=== PATIENT | female | born 1945 | race Caucasian/White ===

== ENCOUNTER → 2023-01-25 | Outpatient (CLI) | payer MEDICARE, BC ==
--- NOTE | 2023-01-25 08:51 | US ---
EXAMINATION TYPE: US gallbladder DATE OF EXAM: 01/25/2023 COMPARISON: NONE CLINICAL INDICATION: Female, 77 years old with history of R10.11 RUQ PAIN; RUQ pain. TECHNIQUE: Multiple sonographic images of the right upper quadrant are obtained. FINDINGS: EXAM MEASUREMENTS: Liver Length: 14.9 cm Gallbladder Wall: 0.2 cm CBD: 0.3 cm Right Kidney: 10.1 x 4.2 x 3.7 cm Pancreas: Limited visualization of pancreatic head Liver: wnl Gallbladder: No wall thickening, stones or sludge visualized at time of scan Evidence for sonographic Colindres's sign: neg CBD: wnl Right Kidney: Medial anechoic lesion at hilum = 1.2 x 0.7 cm. Lower pole echogenic focus with twink ling artifact = 0.4 cm. Visualized portions of the pancreas unremarkable. Liver is unremarkable without evidence of focal les ion. Gallbladder is unremarkable without evidence of cholelithiasis, wall thickening, or pericholecys tic fluid. Per metal mold dresser, negative sonographic Colindres sign. Common bile duct is within normal limit s. Nonobstructive right renal lower pole 0.4 cm calculus. No right renal solid mass identified. Renal sinus cyst measuring up to 1.2 cm. IMPRESSION: 1. No acute process. 2. No cholelithiasis or evidence for acute cholecystitis. 3. Nonobstructive right renal calculus.
== END | disposition home or self-care (01) ==
LOC: RADUSWWP 07:17
PROVIDERS: ATTEND Family Medicine
DX: N20.0 Calculus of kidney (principal); R10.11 Right upper quadrant pain
CPT/HCPCS: 76705

== ENCOUNTER 2024-04-04 13:49 | Inpatient (IN) | payer MEDICARE, BC ==
--- NOTE | 2024-04-04 14:32 | ED ---
General Adult HPI - General Chief complaint: Upper Respiratory Infection Stated complaint: Weakness Time Seen by Provider: 04/04/24 14:00 Source: patient, EMS, RN notes reviewed, old records reviewed Mode of arrival: EMS Limitations: no limitations - History of Present Illness Initial comments: This is a 78-year-old female who presents to the emergency department with a past medical history significant for COPD and smoking. Patient states she does continue to smoke. Patient states of the last couple of days her breathing is gotten considerably worse and today it was much worse than its baseline and so she came to the emergency department. Patient also complains of generalized weakness. Patient denies any chest pain or palpitation. Patient denies any abdominal pain patient Nuys nausea vomiting or diarrhea. Patient denies any swelling to the legs or calf tenderness. Patient [place] any headache patient denies numbness or weakness - Related Data Home Medications Medication Instructions Recorded Confirmed ALPRAZolam [Xanax] 0.25 mg PO HS PRN 04/04/24 04/04/24 Albuterol Inhaler [Ventolin Hfa 2 puff INHALATION RT-Q6H PRN 04/04/24 04/04/24 Inhaler] Albuterol Nebulized [Ventolin 2.5 mg INHALATION RT-QID PRN 04/04/24 04/04/24 Nebulized] Fluticasone/Umeclidin/Vilanter 1 puff INHALATION RT-DAILY 04/04/24 04/04/24 [Trelegy Ellipta 100-62.5-25] Allergies Allergy/AdvReac Type Severity Reaction Status Date / Time No Known Allergies Allergy Unverified 04/04/24 15:48 Review of Systems ROS Statement: Those systems with pertinent positive or pertinent negative responses have been documented in the HPI. ROS Other: All systems not noted in ROS Statement are negative. Past Medical History Past Medical History: Cancer, COPD History of Any Multi-Drug Resistant Organisms: None Reported Past Surgical History: No Surgical Hx Reported Past Psychological History: Panic Disorder Smoking Status: Current every day smoker Past Alcohol Use History: None Reported Past Drug Use History: None Reported General Exam - General Exam Comments Initial Comments: GENERAL: Patient is well-developed and well-nourished. Patient is nontoxic and well- hydrated and is in mild distress. ENT: Neck is soft and supple. No significant lymphadenopathy is noted. Oropharynx is clear. Moist mucous membranes. Neck has full range of motion without eliciting any pain. EYES: The sclera were anicteric and conjunctiva were pink and moist. Extraocular movements were intact and pupils were equal round and reactive to light. Eyelids were unremarkable. PULMONARY: Patient has diminished breath sounds throughout CARDIOVASCULAR: There is a regular rate and rhythm without any murmurs gallops or rubs. ABDOMEN: Soft and nontender with normal bowel sounds. No palpable organomegaly was noted. There is no palpable pulsatile mass. SKIN: Skin is clear with no lesions or rashes and otherwise unremarkable. NEUROLOGIC: Patient is alert and oriented x3. Cranial nerves II through XII are grossly intact. Motor and sensory are also intact. Normal speech, volume and content. Symmetrical smile. MUSCULOSKELETAL: Normal extremities with adequate strength and full range of motion. No lower extremity swelling or edema. No calf tenderness. LYMPHATICS: No significant lymphadenopathy is noted PSYCHIATRIC: Normal psychiatric evaluation. Limitations: no limitations Course Vital Signs 04/04/24 04/04/24 04/04/24 13:52 15:07 15:33 Temperature 98.6 F Pulse Rate 104 H 103 H 117 H Respiratory 24 Rate Blood Pressure 135/96 O2 Sat by Pulse 95 Oximetry 04/04/24 17:50 Temperature Pulse Rate 100 Respiratory 20 Rate Blood Pressure 135/96 O2 Sat by Pulse 93 L Oximetry Medical Decision Making - Medical Decision Making EKG is interpreted by myself. EKG shows a sinus rhythm at 97 bpm [place] 140 QRS is 85 QT interval 323 QTc is 377. Patient EKG shows no ST segment elevation or depression Was pt. sent in by a medical professional or institution (, PA, SYSTEMS CHECKOUT MECHANIC, urgent c are, hospital, or correction...) When possible be specific @ -No Did you speak to anyone other than the patient for history (EMS, parent, family, police, friend...)? What history was obtained from this source @ -No Did you review nursing and triage notes (agree or disagree)? Why? @ -I reviewed and agree with nursing and triage notes Were old charts reviewed (outside hosp., previous admission, EMS record, old EKG, old radiological studies, urgent care reports/EKG's, correction records)? Report findings @ -No old charts were reviewed Differential Diagnosis? @ -Differential Dyspnea: Coronary syndrome, arrhythmia, tamponade, asthma, COPD, pulmonary embolism, pneumonia, pneumothorax, pulmonary effusion, anaphylaxis, diabetic ketoacidosis, flailed chest, pulmonary contusion, diaphragmatic rupture, anemia, neuromuscular, this is not meant to be an all-inclusive list. EKG interpreted by me (3pts min.). @ -As above X-rays interpreted by me (1pt min.). @ -Chest x-ray shows COPD CT interpreted by me (1pt min.). @ -None done U/S interpreted by me (1pt. min.). @ -None done What testing was considered but not performed or refused? (CT, X-rays, U/S, labs)? Why? @ -None What meds were considered but not given or refused? Why? @ -None Did you discuss the management of the patient with other professionals (professionals i.e. , PA, SYSTEMS CHECKOUT MECHANIC, lab, RT, psych nurse, social service assistant, sliver lap tender, teacher, classifications officer cc/cm, disease case manager rn)? Give summary @ -Spoke with [facility] hospitalist and they agreed to admit the patient Was smoking cessation discussed for >3mins.? @ -No Was critical care preformed (if so, how long)? @ -No Were there social determinants of health that impacted care today? How? (Homelessness, low income, unemployed, alcoholism, drug addiction, transportation, low edu. Level, literacy, decrease access to med. care, detention, rehab)? @ -No Was there de-escalation of care discussed even if they declined (Discuss DNR or withdrawal of care, Hospice)? DNR status @ -No What co-morbidities impacted this encounter? (DM, HTN, Smoking, COPD, CAD, Cancer, CVA, ARF, Chemo, Hep., AIDS, mental health diagnosis, sleep apnea, morbid obesity)? @ -None Was patient admitted / discharged? Hospital course, mention meds given and route, prescriptions, significant lab abnormalities, going to OR and other pertinent info. @ -Patient was given albuterol treatments steroids and antibiotics. Patient will be admitted to the hospital for COPD exacerbation Undiagnosed new problem with uncertain prognosis? @ -No Drug Therapy requiring intensive monitoring for toxicity (Heparin, Nitro, Insul in, Cardizem)? @ -No Were any procedures done? @ -No Diagnosis/symptom? @ -COPD exacerbation Acute, or Chronic, or Acute on Chronic? @ -Acute Uncomplicated (without systemic symptoms) or Complicated (systemic symptoms)? @ -Complicated Side effects of treatment? @ -No Exacerbation, Progression, or Severe Exacerbation? @ -No Poses a threat to life or bodily function? How? (Chest pain, USA, IA, pneumonia, PE, COPD, DKA, ARF, appy, cholecystitis, CVA, Diverticulitis, Homicidal, Suicidal, threat to staff... and all critical care pts) @ -Yes this can lead to hypoxia and end organ dysfunction - Lab Data Result diagrams: 04/04/24 14:45 04/04/24 14:45 Lab Results 04/04/24 04/04/24 04/04/24 Range/Units 14:45 14:45 14:45 WBC 8.6 (3.8-10.6) k/uL RBC 2.97 L (3.80-5.40) m/uL Hgb 8.9 L (11.4-16.0) gm/dL Hct 29.0 L (34.0-46.0) % MCV 97.8 (80.0-100.0) fL MCH 30.1 (25.0-35.0) pg MCHC 30.8 L (31.0-37.0) g/dL RDW 13.7 (11.5-15.5) % Plt Count 431 (150-450) k/uL MPV 7.9 Neutrophils % 86 % Lymphocytes % 7 % Monocytes % 6 % Eosinophils % 1 % Basophils % 0 % Neutrophils # 7.4 (1.3-7.7) k/uL Lymphocytes # 0.6 L (1.0-4.8) k/uL Monocytes # 0.5 (0-1.0) k/uL Eosinophils # 0.1 (0-0.7) k/uL Basophils # 0.0 (0-0.2) k/uL Hypochromasia Moderate PT 10.1 (10.0-12.5) sec INR 0.9 (<1.2) APTT 25.1 (22.0-30.0) sec Sodium 135 L (137-145) mmol/L Potassium 5.1 (3.5-5.1) mmol/L Chloride 88 L (98-107) mmol/L Carbon Dioxide 46 H* (22-30) mmol/L Anion Gap 1 mmol/L BUN 16 (7-17) mg/dL Creatinine 0.50 L (0.52-1.04) mg/dL Est GFR (CKD-EPI)AfAm >90 (>60 ml/min/1.73 sqM) Est GFR (CKD-EPI)NonAf >90 (>60 ml/min/1.73 sqM) Glucose 112 H (74-99) mg/dL Plasma Lactic Acid Jeff (0.7-2.0) mmol/L Calcium 8.8 (8.4-10.2) mg/dL Magnesium 2.1 (1.6-2.3) mg/dL Total Bilirubin 0.4 (0.2-1.3) mg/dL AST 54 H (14-36) U/L ALT 17 (4-34) U/L Alkaline Phosphatase 64 (38-126) U/L Troponin I (0.000-0.034) ng/mL Total Protein 6.5 (6.3-8.2) g/dL Albumin 3.7 (3.5-5.0) g/dL Urine Color Urine Appearance (Clear) Urine pH (5.0-8.0) Ur Specific [place] (1.001-1.035) Urine Protein (Negative) Urine Glucose (UA) (Negative) Urine Ketones (Negative) Urine Blood (Negative) Urine Nitrite (Negative) Urine Bilirubin (Negative) Urine Urobilinogen (<2.0) mg/dL Ur Leukocyte Esterase (Negative) Urine RBC (0-5) /hpf Urine WBC (0-5) /hpf Ur Squamous Epith Cells (0-4) /hpf Urine Mucus (None) /hpf 04/04/24 04/04/24 04/04/24 Range/Units 14:45 14:45 15:50 WBC (3.8-10.6) k/uL RBC (3.80-5.40) m/uL Hgb (11.4-16.0) gm/dL Hct (34.0-46.0) % MCV (80.0-100.0) fL MCH (25.0-35.0) pg MCHC (31.0-37.0) g/dL RDW (11.5-15.5) % Plt Count (150-450) k/uL MPV Neutrophils % % Lymphocytes % % Monocytes % % Eosinophils % % Basophils % % Neutrophils # (1.3-7.7) k/uL Lymphocytes # (1.0-4.8) k/uL Monocytes # (0-1.0) k/uL Eosinophils # (0-0.7) k/uL Basophils # (0-0.2) k/uL Hypochromasia PT (10.0-12.5) sec INR (<1.2) APTT (22.0-30.0) sec Sodium (137-145) mmol/L Potassium (3.5-5.1) mmol/L Chloride (98-107) mmol/L Carbon Dioxide (22-30) mmol/L Anion Gap mmol/L BUN (7-17) mg/dL Creatinine (0.52-1.04) mg/dL Est GFR (CKD-EPI)AfAm (>60 ml/min/1.73 sqM) Est GFR (CKD-EPI)NonAf (>60 ml/min/1.73 sqM) Glucose (74-99) mg/dL Plasma Lactic Acid Jeff 0.9 (0.7-2.0) mmol/L Calcium (8.4-10.2) mg/dL Magnesium (1.6-2.3) mg/dL Total Bilirubin (0.2-1.3) mg/dL AST (14-36) U/L ALT (4-34) U/L Alkaline Phosphatase (38-126) U/L Troponin I 0.052 H* (0.000-0.034) ng/mL Total Protein (6.3-8.2) g/dL Albumin (3.5-5.0) g/dL Urine Color Yellow Urine Appearance Cloudy H (Clear) Urine pH 6.5 (5.0-8.0) Ur Specific [place] 1.019 (1.001-1.035) Urine Protein 1+ H (Negative) Urine Glucose (UA) Negative (Negative) Urine Ketones Negative (Negative) Urine Blood Small H (Negative) Urine Nitrite Negative (Negative) Urine Bilirubin Negative (Negative) Urine Urobilinogen <2.0 (<2.0) mg/dL Ur Leukocyte Esterase Trace H (Negative) Urine RBC 46 H (0-5) /hpf Urine WBC 5 (0-5) /hpf Ur Squamous Epith Cells 9 H (0-4) /hpf Urine Mucus Rare H (None) /hpf Disposition Clinical Impression: COPD with acute exacerbation Disposition: ADMITTED IP TO THIS HOSP Referrals: Cody Johnson MD [Primary Care Provider] - 1-2 days Time of Disposition: 17:55
[2024-04-04 15:02] LABS: Basophils % (A) 0 %; Eosinophils # (A) 0.1 k/uL (0-0.7); Eosinophils % (A) 1 %; HGB 8.9 gm/dL (11.4-16.0); Hypochromasia Moderate; Lymphocytes # (A) 0.6 k/uL (1.0-4.8); Lymphocytes % (A) 7 %; MCH 30.1 pg (25.0-35.0); MCHC 30.8 g/dL (31.0-37.0); MCV 97.8 fL (80.0-100.0); Mean Platelet Volume 7.9; Monocytes # (A) 0.5 k/uL (0-1.0); Monocytes % (A) 6 %; Neutrophils # (A) 7.4 k/uL (1.3-7.7); Neutrophils % (A) 86 %; Platelet Count 431 k/uL (150-450); RBC 2.97 m/uL (3.80-5.40); RDW 13.7 % (11.5-15.5); WBC 8.6 k/uL (3.8-10.6)
[2024-04-04] MEDS: ALBUTEROL NEBULIZED 2.5 MG/3 ML INHALATION STA (15:03)
[2024-04-04] MEDS: IPRATROPIUM 0.5 MG/2.5 ML NEBU INHALATION STA (15:04)
[2024-04-04 15:11] LABS: INR 0.9 (<1.2); Partial Thromboplastin Time 25.1 sec (22.0-30.0); Prothrombin Time 10.1 sec (10.0-12.5)
[2024-04-04 15:27] LABS: ALT 17 U/L (4-34); AST 54 U/L (14-36); African American GFR (CKD) >90 (>60 ml/min/1.73 sqM); Albumin 3.7 g/dL (3.5-5.0); Alkaline Phosphatase 64 U/L (38-126); Blood Urea Nitrogen 16 mg/dL (7-17); Calcium 8.8 mg/dL (8.4-10.2); Chloride 88 mmol/L (98-107); Glucose 112 mg/dL (74-99); Magnesium 2.1 mg/dL (1.6-2.3); Non-African American GFR(CKD) >90 (>60 ml/min/1.73 sqM); Potassium 5.1 mmol/L (3.5-5.1); Sodium 135 mmol/L (137-145); Total Bilirubin 0.4 mg/dL (0.2-1.3); Total Protein 6.5 g/dL (6.3-8.2)
[2024-04-04 15:33] LABS: Anion Gap 1 mmol/L
[2024-04-04 15:35] LABS: Carbon Dioxide 46 mmol/L (22-30)
[2024-04-04 16:23] LABS: Appearance,Urine Cloudy (Clear); Bilirubin,Urine Negative (Negative); Blood,Urine Small (Negative); Color,Urine Yellow; Glucose,Urine (UA) Negative (Negative); Ketones,Urine Negative (Negative); Leukocyte Esterase,Urine Trace (Negative); Mucus,Urine Rare /hpf; Nitrite,Urine Negative (Negative); PH, Urine 6.5 (5.0-8.0); Protein,Urine 1+ (Negative); RBC,Urine 46 /hpf (0-5); Specific Gravity,Urine 1.019 (1.001-1.035); Squamous Epithelial Cell,Urine 9 /hpf (0-4); Urobilinogen,Urine <2.0 mg/dL (<2.0); WBC,Urine 5 /hpf (0-5)
--- NOTE | 2024-04-04 17:34 | XR ---
EXAMINATION TYPE: XR chest 2V DATE OF EXAM: 04/04/2024 5:28 PM CLINICAL INDICATION: Female, 78 years old with history of difficulty breathing; [facility] COMPARISON: None TECHNIQUE: XR chest 2V Frontal view of the chest. FINDINGS: Lungs/Pleura: There is flattening of the diaphragm with increased lucency of the lungs. No evidence o f pneumothorax, pleural effusion or focal consolidation. Pulmonary vascularity: Unremarkable. Heart/mediastinum: Cardiomediastinal silhouette is unremarkable. Musculoskeletal: No acute osseous pathology. IMPRESSION: 1. No acute cardiopulmonary disease process. 2. COPD changes.
[2024-04-04] MEDS: cefTRIAXone IN SWFI 1,000 MG/10 ML SYRINGE IVP STA ×2 (17:43→17:44)
[2024-04-04] MEDS: methylPREDNISolone SOD SUCCI 125 MG/2 ML VIAL IV STA (17:43)
[2024-04-04] MEDS ORDERED: IPRATROPIUM-ALBUTEROL 3 ML NEB INHALATION PRN (17:56)
[2024-04-04] MEDS ORDERED: NALOXONE 0.4 MG/ML 1 ML VIAL IVP PRN (17:56)
[2024-04-04] MEDS: IPRATROPIUM-ALBUTEROL 3 ML NEB INHALATION SCH (20:35)
[2024-04-04] MEDS: AMOXIC-POT CLAV 875-125MG 1 EACH TAB PO SCH (21:26)
[2024-04-04] MEDS: methylPREDNISolone SOD SUCCI 125 MG/2 ML VIAL IV SCH (23:43)
[2024-04-05] MEDS: ASPIRIN 81 MG PO STA (12:25)
[2024-04-05] MEDS: ALPRAZolam 0.25 MG TAB PO PRN (12:26)
--- NOTE | 2024-04-05 13:17 | P.CNPUL ---
History of Present Illness Consult date: 04/05/24 Requesting physician: Yue Wiseman Reason for consult: dyspnea, COPD Chief complaint: Shortness of breath, cough, congestion History of present illness: This is a 78-year-old female patient with a known history of chronic and ongoing tobacco dependence of greater than 50 years, chronic obstructive pulmonary disease, chronic hypoxemic respiratory failure on home oxygen at 3 L/min. She is maintained on Trelegy and albuterol. She had recently been diagnosed with malignant thymoma in February 2024. She is following with a oncologist out of [place] and has an appointment there on April 08, 2024. She is from [place] but is here visiting and was having a 2 to 3-day history of increasing shortness of breath cough and congestion. Also has complaints of generalized weakness and fatigue. Chest x-ray reveals no acute pulmonary process. There is evidence of COPD. White count 8.6. Hemoglobin 8.9. Platelets 431. Sodium 135. Potassium 5.1. Bicarb 46. BUN 16. Creatinine 0.50. Glucose 112. She has been initiated on DuoNeb inhalations, Solu-Medrol, Symbicort and empiric antibiotics in the form of Augmentin. Review of Systems REVIEW OF SYSTEMS: CONSTITUTIONAL: Positive for generalized weakness and fatigue. EYES: Denies change in vision. EARS, NOSE, MOUTH, THROAT: Denies headaches, denies sore throat. CARDIOVASCULAR: Denies chest pain, palpitations or syncopal episodes. RESPIRATORY: Positive for shortness of breath, cough, congestion no hemoptysis. GASTROINTESTINAL: Denies change in appetite, denies abdominal pain GENITOURINARY: Denies hematuria, denies infections. MUSKULOSKELETAL: Denies pain, denies swelling. INTEGUMENTARY: Denies rash, denies eczema. NEUROLOGICAL: Denies recent memory loss, no recent seizure activity. PSYCHIATRIC: Denies anxiety, denies depression. HEMATOLOGIC/LYMPHATIC: Denies anemia, denies enlarged lymph nodes. Past Medical History Past Medical History: Cancer, COPD History of Any Multi-Drug Resistant Organisms: None Reported Past Surgical History: No Surgical Hx Reported Past Psychological History: Panic Disorder Smoking Status: Current every day smoker Past Alcohol Use History: None Reported Past Drug Use History: None Reported Medications and Allergies Home Medications Medication Instructions Recorded Confirmed Type ALPRAZolam [Xanax] 0.25 mg PO HS PRN 04/04/24 04/04/24 History Albuterol Inhaler [Ventolin Hfa 2 puff INHALATION RT-Q6H PRN 04/04/24 04/04/24 History Inhaler] Albuterol Nebulized [Ventolin 2.5 mg INHALATION RT-QID PRN 04/04/24 04/04/24 History Nebulized] Fluticasone/Umeclidin/Vilanter 1 puff INHALATION RT-DAILY 04/04/24 04/04/24 History [Treiglesia Ellipta 100-62.5-25] Allergies Allergy/AdvReac Type Severity Reaction Status Date / Time No Known Allergies Allergy Unverified 04/04/24 15:48 Physical Exam Vitals: Vital Signs Temp Pulse Resp BP Pulse Ox 04/05/24 12:30 112 H 20 5 L 04/05/24 11:30 118 H 04/05/24 11:20 107 H 04/05/24 09:00 94 20 140/88 97 04/05/24 08:41 24 04/05/24 08:03 115 H 04/05/24 07:57 92 L 04/05/24 07:53 124 H 04/05/24 07:48 86 18 129/70 94 L 04/05/24 05:30 99 18 129/70 97 04/05/24 03:30 111 H 20 115/87 94 L 04/05/24 01:00 94 16 115/50 93 L 04/04/24 23:50 102 H 20 124/67 04/04/24 21:27 104 H 20 135/96 95 04/04/24 20:45 115 H 04/04/24 20:35 114 H 04/04/24 17:50 100 20 135/96 93 L 04/04/24 15:33 117 H 04/04/24 15:07 103 H 04/04/24 13:52 98.6 F 104 H 24 135/96 95 GENERAL EXAM: Alert,, very thin 78-year-old female, on 2 L/min per nasal cannula, comfortable in no apparent distress. HEAD: Normocephalic. EYES: Normal reaction of pupils, equal size. NOSE: Clear with pink turbinates. THROAT: No erythema or exudates. NECK: No masses, no JVD. CHEST: No chest wall deformity. LUNGS: Equal air entry with end expiratory wheeze, diminished. CVS: S1 and S2 normal with no audible murmur, regular rhythm. ABDOMEN: No hepatosplenomegaly, normal bowel sounds, no guarding or rigidity. SPINE: No scoliosis or deformity SKIN: No rashes CENTRAL NERVOUS SYSTEM: No focal deficits, tone is normal in all 4 extremities. EXTREMITIES: There is no peripheral edema. No clubbing, no cyanosis. Peripheral pulses are intact. Results - Laboratory Findings CBC and BMP: 04/04/24 14:45 04/04/24 14:45 PT/INR, D-dimer PT 10.1 sec (10.0-12.5) 04/04/24 14:45 INR 0.9 (<1.2) 04/04/24 14:45 Abnormal lab findings: Abnormal Labs 04/04/24 04/04/24 04/04/24 14:45 14:45 14:45 RBC 2.97 L Hgb 8.9 L Hct 29.0 L MCHC 30.8 L Lymphocytes # 0.6 L Sodium 135 L Chloride 88 L Carbon Dioxide 46 H* Creatinine 0.50 L Glucose 112 H AST 54 H Troponin I 0.052 H* Urine Appearance Urine Protein Urine Blood Ur Leukocyte Esterase Urine RBC Ur Squamous Epith Cells Urine Mucus 04/04/24 15:50 RBC Hgb Hct MCHC Lymphocytes # Sodium Chloride Carbon Dioxide Creatinine Glucose AST Troponin I Urine Appearance Cloudy H Urine Protein 1+ H Urine Blood Small H Ur Leukocyte Esterase Trace H Urine RBC 46 H Ur Squamous Epith Cells 9 H Urine Mucus Rare H - Diagnostic Findings Chest x-ray: image reviewed Assessment and Plan Assessment: Acute on chronic hypoxemic respiratory failure secondary to an acute exacerbation of chronic obstructive pulmonary disease. Chest x-ray reveals no acute process. Procalcitonin pending Chronic and ongoing tobacco dependence of greater than 50 years Anorexia/cachexia syndrome Recent diagnosis of malignant thymoma. Has an appointment April 08, 2024 with oncology of [place] Generalized weakness and fatigue, consider myasthenia gravis secondary to above Plan: The patient was seen and evaluated Chest x-ray, labs and medications reviewed Continue the bronchodilators, steroids Continue antibiotics for now Check a procalcitonin Check anti MUSK antibodies for myasthenia gravis We will continue to follow and make further recommendations based on her clinica l status I have personally seen and examined the patient, performed the documentation and the assessment and plan as written. Number of minutes spent on the visit: 20.
--- NOTE | 2024-04-05 14:54 | P.HPIM ---
History of Present Illness H&P Date: 04/05/24 History of present illness: 78-year-old female with past medical history significant for COPD on 3 L oxygen, uses albuterol and trilogy at home, chronic current smoker for more than 50 years, history of thymoma diagnosed in February 2024 who presented to hospital with a complaint of shortness of breath. Patient's daughter at bedside who reported that patient is going to follow-up with an oncologist on Sunday at [place] for her thymoma. Patient presented here for 2 to 3 days history of increased shortness of breath, cough and congestion, generalized weakness and fatigue. Chest x-ray negative for acute process. Chest x-ray still showed changes suggestive of COPD. Normal white count, hemoglobin low 8.9 platelet 431. BMP showed sodium 135 potassium 5.1 bicarb 46, creatinine 0.50 BUN 16, bl ood glucose 112. Patient received DuoNeb inhalers, Solu-Medrol Symbicort and empiric antibiotics in the form of Augmentin in the ED. REVIEW OF SYSTEMS: CONSTITUTIONAL: Complains of generalized weakness, fatigue. HEENT: No recent visual problems or hearing problems. Denied any sore throat. CARDIOVASCULAR: No chest pain, orthopnea, PND, no palpitations, no syncope. PULMONARY: Complains of shortness breath, cough, congestion. GASTROINTESTINAL: No diarrhea, no nausea, no vomiting, no abdominal pain. NEUROLOGICAL: No headaches, no weakness, no numbness. HEMATOLOGICAL: Denies any bleeding or petechiae. GENITOURINARY: Denies any burning micturition, frequency, or urgency. MUSCULOSKELETAL/RHEUMATOLOGICAL: Denies any joint pain, swelling, or any muscle pain. ENDOCRINE: Denies any polyuria or polydipsia. The rest of the 14-point review of systems is negative. PHYSICAL EXAMINATION: GENERAL: The patient is A&O x3, NAD HEENT: EOMI, Sclerae anicteric, Moist Mucous membranes Neck: Supple, Non tender, No JVD PULMONARY: Decreased breath sound bilaterally, bilateral expiratory wheezes. CARDIOVASCULAR: S1, S2 present. No murmurs, rubs, or gallops. ABDOMEN: Soft, nontender, nondistended, normoactive bowel sounds. No guarding or rebound tenderness. MUSCULOSKELETAL: No edema, No cyanosis. No clubbing. Normal ROM. Intact peripheral pulses. EXTREMITIES: No cyanosis, clubbing, or pedal edema. NEUROLOGICAL: CN 2-12 grossly intact. No FND Assessment and plan: Acute on chronic hypoxic respiratory failure: Acute COPD exacerbation: Chronic ongoing tobacco use more than 50 years: Anorexia: Cachexia Recent diagnosis of malignant thymomaappointment on Sunday with [facility]line oncology Generalized weakness and fatigue: Presented with worsening shortness of breath for 2 to 3 days, productive cough, congestion, generalized fatigue On 3 L oxygen at baseline Continue bronchodilators, steroids On Augmentin empirically, procalcitonin pending Chest x-ray negative for pneumonia Pulmonary consultedappreciate recs Will consult neurology to evaluate for generalized weakness in the setting of thymoma. DVT prophylaxis Subcutaneous Lovenox Monitor vital signs and labs Continue telemetry monitoring Labs and medication were reviewed. Continue same treatment. Resume home medication. Further recommendations as per clinical course of the patient Dictation was produced using [employer] dictation software. please excuse any grammatical, word or spelling errors. Past Medical History Past Medical History: Cancer, COPD History of Any Multi-Drug Resistant Organisms: None Reported Past Surgical History: No Surgical Hx Reported Past Psychological History: Panic Disorder Smoking Status: Current every day smoker Past Alcohol Use History: None Reported Past Drug Use History: None Reported Medications and Allergies Home Medications Medication Instructions Recorded Confirmed Type ALPRAZolam [Xanax] 0.25 mg PO HS PRN 04/04/24 04/04/24 History Albuterol Inhaler [Ventolin Hfa 2 puff INHALATION RT-Q6H PRN 04/04/24 04/04/24 History Inhaler] Albuterol Nebulized [Ventolin 2.5 mg INHALATION RT-QID PRN 04/04/24 04/04/24 History Nebulized] Fluticasone/Umeclidin/Vilanter 1 puff INHALATION RT-DAILY 04/04/24 04/04/24 History [Trelegy Ellipta 100-62.5-25] Allergies Allergy/AdvReac Type Severity Reaction Status Date / Time No Known Allergies Allergy Unverified 04/04/24 15:48 Physical Exam Vitals: Vital Signs Pulse Resp BP Pulse Ox 04/05/24 12:30 112 H 20 5 L 04/05/24 11:30 118 H 04/05/24 11:20 107 H 04/05/24 09:00 94 20 140/88 97 04/05/24 08:41 24 04/05/24 08:03 115 H 04/05/24 07:57 92 L 04/05/24 07:53 124 H 04/05/24 07:48 86 18 129/70 94 L 04/05/24 05:30 99 18 129/70 97 04/05/24 03:30 111 H 20 115/87 94 L 04/05/24 01:00 94 16 115/50 93 L 04/04/24 23:50 102 H 20 124/67 04/04/24 21:27 104 H 20 135/96 95 04/04/24 20:45 115 H 04/04/24 20:35 114 H 04/04/24 17:50 100 20 135/96 93 L 04/04/24 15:33 117 H 04/04/24 15:07 103 H Results CBC & Chem 7: 04/04/24 14:45 04/04/24 14:45 Labs: Abnormal Lab Results - Last 24 Hours (Table) 04/04/24 04/04/24 04/04/24 Range/Units 14:45 14:45 14:45 RBC 2.97 L (3.80-5.40) m/uL Hgb 8.9 L (11.4-16.0) gm/dL Hct 29.0 L (34.0-46.0) % MCHC 30.8 L (31.0-37.0) g/dL Lymphocytes # 0.6 L (1.0-4.8) k/uL Sodium 135 L (137-145) mmol/L Chloride 88 L (98-107) mmol/L Carbon Dioxide 46 H* (22-30) mmol/L Creatinine 0.50 L (0.52-1.04) mg/dL Glucose 112 H (74-99) mg/dL AST 54 H (14-36) U/L Troponin I 0.052 H* (0.000-0.034) ng/mL Urine Appearance (Clear) Urine Protein (Negative) Urine Blood (Negative) Ur Leukocyte Esterase (Negative) Urine RBC (0-5) /hpf Ur Squamous Epith Cells (0-4) /hpf Urine Mucus (None) /hpf 04/04/24 04/05/24 Range/Units 15:50 11:52 RBC (3.80-5.40) m/uL Hgb (11.4-16.0) gm/dL Hct (34.0-46.0) % MCHC (31.0-37.0) g/dL Lymphocytes # (1.0-4.8) k/uL Sodium (137-145) mmol/L Chloride (98-107) mmol/L Carbon Dioxide (22-30) mmol/L Creatinine (0.52-1.04) mg/dL Glucose (74-99) mg/dL AST (14-36) U/L Troponin I 0.042 H* (0.000-0.034) ng/mL Urine Appearance Cloudy H (Clear) Urine Protein 1+ H (Negative) Urine Blood Small H (Negative) Ur Leukocyte Esterase Trace H (Negative) Urine RBC 46 H (0-5) /hpf Ur Squamous Epith Cells 9 H (0-4) /hpf Urine Mucus Rare H (None) /hpf
[2024-04-05] MEDS: ENOXAPARIN 40 MG/0.4 ML SYRINGE SQ SCH (15:40)
[2024-04-05] MEDS: SYMBICORT 160-4.5 MCG INHALER INHALATION SCH (20:46)
[2024-04-06] MEDS ORDERED: SYMBICORT 80-4.5 MCG INHALER INHALATION SCH (08:00)
--- NOTE | 2024-04-06 11:13 | P.CNNES ---
History of Present Illness Consult date: 04/05/24 Requesting physician: Spenser Holden Reason for Consult: Generalized weakness, history of thymoma History of Present Illness: Patient is a 78-year-old female with history of COPD, recently diagnosed thymoma, came to the hospital by ambulance yesterday at 1:49 PM for difficulty breathing. EMS flowsheet not available in the chart. Patient's family members were also present. Patient has history of COPD. She has developed difficulty breathing, progressively getting worse since July 2023. Initially oxygen was started, which helped. In February [address] scan of the chest, which revealed thymic mass. She underwent biopsy of this mass, which revealed thymoma with some malignant cells were also present, as per patient's report. Prior to arrival, her symptoms got worse. Her mouth was hurting for last few months. Patient breathing difficulty got worse. Airvo was tried but it prod uced dry mouth. Yesterday she could not breathe, could not talk therefore she came to the hospital. Patient states that she cannot undergo sternotomy for thymectomy because of her overall health condition. And they cannot perform robotic assisted surgery because of the location of this thymic mass. Patient states that they are planning for possible proton radiation. Patient denies any diplopia, dysphagia, ptosis. She does have difficulty breathing related to her COPD. No dysarthria. Vital signs on arrival blood pressure 135/96, pulse rate 104, temperature 98.6. Blood test shows normal WBC hemoglobin 8.9, platelets 431. PT PTT normal, sodium 135 potassium 5.1, CO2 46. Renal functions are normal, AST 54, with ALT normal for 17. Troponin is mildly elevated 0.052. UA is negative. EKG shows sinus rhythm. Possible left atrial enlargement. Home medications include Multiple nasal sprays and Xanax 0.25 mg at bedtime as needed. Patient has history of smoking around 1 pack/day for 62 years, although she has on and off cut back. At present she is smoking no more than 3 to 4 cigarettes/day. Denies any alcohol use. Denies any hypertension or diabetes. Patient has not seen doctors for almost 50 years, as she has been healthy. At home patient walks by herself. She has very limited walking because of her cardiopulmonary process. She can walk from living room to the kitchen but has to stop as she cannot catch her breath. This has been going on for last 1 year. Outside, she uses cane or uses walker with seat. At groceries she uses cart. Review of Systems All pertinent positive and negative mentioned in HPI. Denies any headache. No double vision. Past Medical History Past Medical History: Cancer, COPD History of Any Multi-Drug Resistant Organisms: None Reported Past Surgical History: No Surgical Hx Reported Past Psychological History: Panic Disorder Smoking Status: Current every day smoker Past Alcohol Use History: None Reported Past Drug Use History: None Reported Medications and Allergies Home Medications Medication Instructions Recorded Confirmed Type ALPRAZolam [Xanax] 0.25 mg PO HS PRN 04/04/24 04/04/24 History Albuterol Inhaler [Ventolin Hfa 2 puff INHALATION RT-Q6H PRN 04/04/24 04/04/24 History Inhaler] Albuterol Nebulized [Ventolin 2.5 mg INHALATION RT-QID PRN 04/04/24 04/04/24 History Nebulized] Fluticasone/Umeclidin/Vilanter 1 puff INHALATION RT-DAILY 04/04/24 04/04/24 History [Trelerd Ellipta 100-62.5-25] Allergies Allergy/AdvReac Type Severity Reaction Status Date / Time No Known Allergies Allergy Unverified 04/04/24 15:48 Physical Examination - Vital Signs Vital Signs: Vital Signs Pulse Resp BP Pulse Ox 04/05/24 15:49 166/69 04/05/24 15:48 112 H 20 98 04/05/24 15:35 100 04/05/24 15:27 109 H 04/05/24 12:30 112 H 20 5 L 04/05/24 11:30 118 H 04/05/24 11:20 107 H 04/05/24 09:00 94 20 140/88 97 04/05/24 08:41 24 04/05/24 08:03 115 H 04/05/24 07:57 92 L 04/05/24 07:53 124 H 04/05/24 07:48 86 18 129/70 94 L 04/05/24 05:30 99 18 129/70 97 04/05/24 03:30 111 H 20 115/87 94 L 04/05/24 01:00 94 16 115/50 93 L 04/04/24 23:50 102 H 20 124/67 09/13/24 21:27 104 H 20 135/96 95 04/04/24 20:45 115 H 04/04/24 20:35 114 H Patient is an elderly female, who is in mild respiratory distress, she has oxygen by nasal cannula. She is cachectic. Patient is alert awake oriented to time place and person. Speech and language functions are normal. Patient can name and repeat very well. No aphasia or dysarthria. Attention, concentration and fund of knowledge is adequate. On cranial nerve examination, pupils are equal, round and reacting to light, visual rubi are full on confrontation, with no neglect on double simultaneous stimulation. Extraocular muscles are intact with no nystagmus. Face is symmetric, tongue protrudes to the midline. Patient's strength of eye closure, lips, facial muscles are completely normal. No ptosis, no facial or lingual muscles weakness. Her lip closure is very strong. Palatal elevation and sensation normal, hearing and shoulder shrug normal, facial sensation normal. On muscle strength testing, there is no pronator drift and the strength is normal in arms and legs distally and proximally. Deep tendon reflexes are symmetric 1+ and plantars downgoing. Sensory to touch is equal with no neglect on double simultaneous stimulation. Cerebellar function showed no ataxia for [id number] testing. No dysdiadochokinesia. No ataxia for [id number] testing on either side. Tone and bulk of muscles normal. Gait deferred.. On general examination, there is no carotid bruit or murmur, S1-S2 audible. Chest is clear expiratory wheeze on auscultation. Decreased breath sounds. Abdomen is soft nontender. No organomegaly, bowel sounds present. Peripheral pulses are present. No peripheral edema. Results - Laboratory Findings CBC and BMP: 04/04/24 14:45 04/04/24 14:45 Abnormal Lab Findings: Abnormal Labs 04/04/24 04/04/24 04/04/24 14:45 14:45 14:45 RBC 2.97 L Hgb 8.9 L Hct 29.0 L MCHC 30.8 L Lymphocytes # 0.6 L Sodium 135 L Chloride 88 L Carbon Dioxide 46 H* Creatinine 0.50 L Glucose 112 H AST 54 H Troponin I 0.052 H* Urine Appearance Urine Protein Urine Blood Ur Leukocyte Esterase Urine RBC Ur Squamous Epith Cells Urine Mucus 04/04/24 04/05/24 15:50 11:52 RBC Hgb Hct MCHC Lymphocytes # Sodium Chloride Carbon Dioxide Creatinine Glucose AST Troponin I 0.042 H* Urine Appearance Cloudy H Urine Protein 1+ H Urine Blood Small H Ur Leukocyte Esterase Trace H Urine RBC 46 H Ur Squamous Epith Cells 9 H Urine Mucus Rare H Assessment and Plan Assessment: * Newly diagnosed malignant thymoma. Rule out myasthenia gravis. Patient denies any clinical features of myasthenia gravis except for shortness of breath, which is likely related to her COPD exacerbation. * COPD exacerbation * Chronic tobacco use * Cachexia Plan: * Patient does not have any obvious clinical evidence of myasthenia gravis. She feels generalized weak, likely related to decreased pulmonary reserve and other medical process. Her strength appears still fairly normal. There is no evidence of fascial muscle weakness, or involvement of lingual or pharyngeal muscles. * However, agree with checking acetylcholine receptor antibodies and MUSK antibodies to evaluate for myasthenia. * Other medical management as per IM and pulmonary medicine. * Neurology will follow clinically. Thank you for the consult.
--- NOTE | 2024-04-06 11:21 | CT ---
EXAMINATION TYPE: CT angio chest DATE OF EXAM: 04/06/2024 COMPARISON: Radiograph 04/04/2024 HISTORY: 79-year-old female history of malignant thymoma, shortness of breath, DYSPNEA TECHNIQUE: Contiguous axial scanning of the chest after the administration of 55 mL of Isovue 370. C oronal/sagittal MIP reconstructions performed. CT DLP: 233mGycm. Automatic exposure control utilized for a dose reduction. FINDINGS: The heart is mildly enlarged without pericardial effusion. No flattening of the interventricular sept um. However, there is prominent reflux contrast into the hepatic veins. Extensive LAD coronary artery calcifications. Lesser degree circumflex coronary artery calcifications. Mild to moderate aortic valve calcifications. Aorta normal caliber with mild to moderate atherosclero tic arch calcifications and metatarsals branching anatomy. Prominent 1.6 cm right hilar lymph node is nonspecific. Anterior mediastinal mass measuring 5.1 x 6.2 x 4.9 cm indicating with patient's reported history of malignant thymoma. Satisfactory opacification of pulmonary arterial system. There is excessive breathing motion at the lower lungs making assessment for pulmonary emboli nondiag nostic here at the segmental and more distal branch level. No pulmonary embolus seen in the upper mid lungs are within the large central pulmonary arteries. Moderate to advanced emphysema. [id number] diffuse bronchial wall thickening. Multifocal patchy bibasilar opacities. Trace right pleural effusion. Visualized upper abdomen is limited by motion. Bones: Moderate to advanced degenerative disc disease lower thoracic spine. Degenerative grade 1 retr olisthesis T10-T11, T11-T12, and T12-L1. 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 IMPRESSION: 1. Respiratory motion artifact in the lower lungs. Assessment of segmental and more distal arterial b ranches here is nondiagnostic. No evidence for pulmonary embolus the large central arteries or within the upper mid lungs. 2. COPD with moderate to advanced emphysema. 3. Trace right pleural effusion along with multifocal patchy bibasilar infiltrates. Correlate for inf ectious or aspiration pneumonitis. 4. Nonspecific 1.6 cm right hilar lymph node. This can be reassessed at follow-up. A 6.2 cm anterior mediastinal mass in keeping with patient's reported history of malignant thymoma. 5. 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 6. There may be mild fluid overload given cardiomegaly and a trace right effusion. Clinically correla te. [facility], , 04/06/2024 11:19 AM
--- NOTE | 2024-04-06 12:19 | P.PN ---
Subjective Progress Note Date: 04/06/24 This is a 78-year-old female patient with a known history of chronic and ongoing tobacco dependence of greater than 50 years, chronic obstructive pulmonary disease, chronic hypoxemic respiratory failure on home oxygen at 3 L/min. She is maintained on Trelegy and albuterol. She had recently been diagnosed with malignant thymoma in February 2024. She is following with a oncologist out of [place] and has an appointment there on April 08, 2024. She is from [place] but is here visiting and was having a 2 to 3-day history of increasing shortness of breath cough and congestion. Also has complaints of generalized weakness and fatigue. Chest x-ray reveals no acute pulmonary process. There is evidence of COPD. White count 8.6. Hemoglobin 8.9. Platelets 431. Sodium 135. Potassium 5.1. Bicarb 46. BUN 16. Creatinine 0.50. Glucose 112. She has been initiated on DuoNeb inhalations, Solu-Medrol, Symbicort and empiric antibiotics in the form of Augmentin. The patient is seen today April 06, 2024 in follow-up on the regular medical floor. She is awake and alert in no acute distress. She states her breathing is not much better today compared to yesterday. She is maintaining O2 sa turations in the 90s on 3 L/min per nasal cannula. She has been afebrile. Hemodynamically stable. Procalcitonin was negative at 0.09. CT angiogram today ruled out pulmonary embolism. There is evidence of COPD with moderate to advanced emphysema. Trace right pleural effusion. There is a 6.2 cm anterior mediastinal mass in keeping with the patient's reported history of malignant thymoma. Nonspecific 1.6 cm right hilar lymph node. Blood culture pending. She remains on DuoNeb inhalations, Symbicort, Solu-Medrol. Lovenox for DVT prophylaxis. Objective - Vital Signs Vital signs: Vital Signs Temp 97.5 F L 04/06/24 07:28 Pulse 112 H 04/06/24 12:01 Resp 18 04/06/24 07:28 BP 122/74 04/06/24 07:28 Pulse Ox 94 L 04/06/24 08:59 FiO2 Intake & Output 04/05/24 04/06/24 04/06/24 18:59 06:59 18:59 Weight 43.091 kg Other: Voiding Method Toilet Toilet # Voids 1 1 - Exam GENERAL EXAM: Alert, thin 78-year-old female, sitting up in bed, on 2 L/min per nasal cannula, in no apparent distress. HEAD: Normocephalic. EYES: Normal reaction of pupils, equal size. NOSE: Clear with pink turbinates. THROAT: No erythema or exudates. NECK: No masses, no JVD. CHEST: No chest wall deformity. LUNGS: Equal air entry with end expiratory wheeze, diminished. CVS: S1 and S2 normal with no audible murmur, regular rhythm. ABDOMEN: No hepatosplenomegaly, normal bowel sounds, no guarding or rigidity. SPINE: No scoliosis or deformity SKIN: No rashes CENTRAL NERVOUS SYSTEM: No focal deficits, tone is normal in all 4 extremities. EXTREMITIES: There is no peripheral edema. No clubbing, no cyanosis. Peripheral pulses are intact. - Labs CBC & Chem 7: 04/04/24 14:45 04/04/24 14:45 Labs: Abnormal Lab Results - Last 24 Hours (Table) 04/05/24 04/05/24 Range/Units 11:52 17:39 Troponin I 0.042 H* 0.052 H* (0.000-0.034) ng/mL Microbiology - Last 24 Hours (Table) 04/04/24 14:45 Blood Culture - Preliminary Blood Assessment and Plan Assessment: Acute on chronic hypoxemic respiratory failure secondary to an acute exacerbation of chronic obstructive pulmonary disease. Chest x-ray reveals no acute process. Procalcitonin negative. Pulmonary embolism ruled out Chronic and ongoing tobacco dependence of greater than 50 years Anorexia/cachexia syndrome Recent diagnosis of malignant thymoma. CT chest today reveals a 6.2 cm anterior mediastinal mass. Has an appointment April 08, 2024 with oncology of [place] Generalized weakness and fatigue, consider myasthenia gravis secondary to above Plan: The patient was seen and evaluated CT angiogram and medications reviewed Pulmonary embolism ruled out Continue bronchodilators, steroids Procalcitonin negative We will continue to follow I have personally seen and examined the patient, performed the documentation and the assessment and plan as written. Number of minutes spent on the visit: 10.
--- NOTE | 2024-04-06 12:43 | P.CRDCN ---
History of Present Illness Consult date: 04/06/24 History of present illness: This is a very pleasant 79-year-old female patient with a past medical history significant for extensive history of smoking and COPD as well as a stent to the diagnosis of malignant thymoma and amenable for any surgical intervention presented to the hospital complaining of progressive shortness of breath associated with cough and wheezing and she was diagnosed with COPD exacerbation. She is on oxygen at home. She continues to smoke. We requested to see the patient because of abnormal cardiac enzymes. The patient underwent troponin and that came in to be mildly abnormal but appears to be overall flat with no evidence of any rising or declining in the number of troponin consistent with acute coronary syndrome. We requested to see the patient because of that. The EKG showed sinus mechanism with sinus tachycardia with no ischemic ST or T wave abnormalities. Beside that the patient did not have any symptoms of any chest pain or chest discomfort. 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 He was started on medications for COPD exacerbation including steroids. The physical examination is remarkable for regular rhythm with mild sinus tachycardia and diminished breathing sounds bilaterally/mild bilateral expiratory wheezing with no edema was noted in the lower extremities. Assessment Evidence of myocardial injury with no evidence of ischemia COPD exacerbation History of smoking History of malignant thymoma Plan The troponin is not consistent with acute coronary event Risk stratification including an echocardiogram with Doppler She is on aspirin we will continue that The mildly abnormal troponin is likely secondary to COPD exacerbation/hypoxemia along with tachycardia as well Mild sinus tachycardia is also likely secondary to COPD exacerbation I would avoid any beta-josé at this point to avoid blunting the heart rate and he is experiencing wheezing Further recommendation to follow the echocardiogram Past Medical History Past Medical History: Cancer, COPD History of Any Multi-Drug Resistant Organisms: None Reported Past Surgical History: No Surgical Hx Reported Past Psychological History: Panic Disorder Smoking Status: Current every day smoker Past Alcohol Use History: None Reported Past Drug Use History: None Reported Medications and Allergies Home Medications Medication Instructions Recorded Confirmed Type ALPRAZolam [Xanax] 0.25 mg PO HS PRN 04/04/24 04/04/24 History Albuterol Inhaler [Ventolin Hfa 2 puff INHALATION RT-Q6H PRN 04/04/24 04/04/24 History Inhaler] Albuterol Nebulized [Ventolin 2.5 mg INHALATION RT-QID PRN 04/04/24 04/04/24 History Nebulized] Fluticasone/Umeclidin/Vilanter 1 puff INHALATION RT-DAILY 04/04/24 04/04/24 History [Trelegy Ellipta 100-62.5-25] Allergies Allergy/AdvReac Type Severity Reaction Status Date / Time No Known Allergies Allergy Unverified 04/04/24 15:48 Physical Exam Vitals: Vital Signs Temp Pulse Pulse Resp BP BP Pulse Ox 04/06/24 12:13 108 H 04/06/24 12:01 112 H 04/06/24 09:05 102 H 04/06/24 08:59 94 L 04/06/24 08:57 97 04/06/24 07:28 97.5 F L 98 18 122/74 99 04/06/24 01:32 97.6 F 117 H 19 114/66 98 04/05/24 20:55 105 H 04/05/24 20:45 102 H 04/05/24 20:00 18 04/05/24 19:56 98.6 F 104 H 17 127/66 99 04/05/24 15:49 166/69 04/05/24 15:48 112 H 20 98 04/05/24 15:35 100 04/05/24 15:27 109 H Intake and Output 04/05/24 04/06/24 04/06/24 22:59 06:59 14:59 Other: Voiding Method Toilet Toilet # Voids 1 Weight 43.091 kg Results 04/04/24 14:45 04/04/24 14:45 Cardiac Enzymes 04/05/24 04/05/24 Range/Units 11:52 17:39 Troponin I 0.042 H* 0.052 H* (0.000-0.034) ng/mL Current Medications Generic Name Dose Route Start Last Admin Trade Name Freq PRN Reason Stop Dose Admin Albuterol/Ipratropium 3 ml 04/04/24 20:00 04/06/24 12:01 Ipratropium-Albuterol 3 Ml Neb INHALATION 3 ml RT-QID NORMA Administration Albuterol/Ipratropium 3 ml 04/04/24 17:56 Ipratropium-Albuterol 3 Ml Neb INHALATION RT-Q2H PRN Shortness Of Breath Or Wheezing Budesonide/Formoterol Fumarate 2 puff 04/05/24 20:00 04/06/24 08:57 Symbicort 160-4.5 Mcg Inhaler INHALATION 2 puff RT-BID NORMA Administration Enoxaparin Sodium 40 mg 04/05/24 15:00 04/06/24 07:43 Enoxaparin 40 Mg/0.4 Ml Syringe SQ 40 mg DAILY NORMA Administration Lorazepam 0.5 mg 04/06/24 12:13 Lorazepam 0.5 Mg Tab PO Q8H PRN Anxiety Methylprednisolone Sodium Succinate 60 mg 04/05/24 00:00 04/06/24 11:59 Methylprednisolone Sod Succi 125 Mg/2 Ml Vial IV 60 mg Q6HR NORMA Administration Naloxone HCl 0.2 mg 04/04/24 17:56 Naloxone 0.4 Mg/Ml 1 Ml Vial IVP Q2M PRN Opioid Reversal Intake and Output 04/05/24 04/06/24 04/06/24 22:59 06:59 14:59 Other: Voiding Method Toilet Toilet # Voids 1 Weight 43.091 kg 04/04/24 14:45 04/04/24 14:45
--- NOTE | 2024-04-06 14:21 | P.PN ---
Subjective Progress Note Date: 04/06/24 Interval History: 78-year-old female with past medical history significant for COPD on 3 L oxygen, uses albuterol and trilogy at home, chronic current smoker for more than 50 years, history of thymoma diagnosed in February 2024 who presented to hospital with a complaint of shortness of breath. Patient's daughter at bedside who reported that patient is going to follow-up with an oncologist on Sunday at [facility] for her thymoma. Patient presented here for 2 to 3 days history of increased shortness of breath, cough and congestion, generalized weakness and fatigue. Chest x-ray negative for acute process. Chest x-ray still showed changes suggestive of COPD. Normal white count, hemoglobin low 8.9 platelet 431. BMP showed sodium 135 potassium 5.1 bicarb 46, creatinine 0.50 BUN 16, blood glucose 112. Patient received DuoNeb inhalers, Solu-Medrol Symbicort and empiric antibiotics in the form of Augmentin in the ED. 04/06/2024atient was seen and examined today. Daughter is bedside. Patient complained of anxiety, reported taking Xanax at home, started on as needed Ativan. In no acute distress. Patient reported worsening shortness of breath with anxiety. Currently on 3-4 oxygen. Remained afebrile, vital stable. Procalcitonin negative, Augmentin discontinued. CT angiogram today was negative for PE, showed evidence of COPD with moderate to advanced emphysema, trace right pleural effusion, 6.2 cm anterior mediastinal mass, nonspecific 1.6 cm right hilar lymph node. Blood cultures are pending. Patient remains on inhalers, Solu-Medrol. Pulmonary following. Anti-MuSK antibodies and acetylcholine receptor binding antibodies sent out, neurology following. Troponin trend remained flat. Cardiology consulted, troponin not consistent with ACS, echocardiogram pending Assessment and plan: Acute on chronic hypoxic respiratory failure: Acute COPD exacerbation: Chronic ongoing tobacco use more than 50 years: Anorexia: Cachexia Recent diagnosis of malignant thymomaappointment on Sunday with midline oncology Generalized weakness and fatigue: Presented with worsening shortness of breath for 2 to 3 days, productive cough, congestion, generalized fatigue On 3 L oxygen at baseline Continue bronchodilators, steroids Procalcitonin negative, discontinued Augmentin. Chest x-ray negative for pneumonia Pulmonary consultedappreciate recs CT chest negative for PE, showed changes suggestive of emphysema, trace right pleural effusion, mediastinal mass, nonspecific 1.6 elevated right hilar lymph node. Elevated troponin: Trend flat Likely demand ischemia Cardiology consultedrecommended to continue aspirin, echocardiogram, avoid beta-josé due to COPD, further recs based on echocardiogram, less likely ACS Thymoma: No diagnosis of thymoma, has been scheduled to see oncology as outpatient. CT angiogram was negative for PE, showed evidence of COPD with moderate to advanced emphysema, trace right pleural effusion, 6.2 cm anterior mediastinal mass, nonspecific 1.6 cm right hilar lymph node. Neurology consulted and following Anti-MuSK and acetylcholine binding antibodies and Anti-MuSK antibodies pending DVT prophylaxis Subcutaneous Lovenox Monitor vital signs and labs Continue telemetry monitoring Labs and medication were reviewed. Continue same treatment. Resume home medication. Further recommendations as per clinical course of the patient DVT prophylaxis: PHYSICAL EXAMINATION: GENERAL: The patient is A&O x3, NAD HEENT: EOMI, Sclerae anicteric, Moist Mucous membranes Neck: Supple, Non tender, No JVD PULMONARY: Decreased breath sound bilaterally, bilateral expiratory wheezes. CARDIOVASCULAR: S1, S2 present. No murmurs, rubs, or gallops. ABDOMEN: Soft, nontender, nondistended, normoactive bowel sounds. No guarding or rebound tenderness. MUSCULOSKELETAL: No edema, No cyanosis. No clubbing. Normal ROM. Intact peripheral pulses. EXTREMITIES: No cyanosis, clubbing, or pedal edema. NEUROLOGICAL: CN 2-12 grossly intact. No FND Skin: No Rash REVIEW OF SYSTEMS: CONSTITUTIONAL: No fever or chills. Complains of anxiety. CARDIOVASCULAR: No chest pain, palpitations or syncope. PULMONARY: Complains of shortness of breath, cough. GASTROINTESTINAL: No nausea, vomiting, diarrhea, abdominal pain. : No Dysuria, urgency, frequency. Extremities: No edema. NEUROLOGICAL: No headaches, no weakness, or numbness Dictation was produced using [employer] dictation software. please excuse any grammatical, word or spelling errors. Objective - Vital Signs Vital signs: Vital Signs Temp 97.5 F L 04/06/24 07:28 Pulse 108 H 04/06/24 12:13 Resp 18 04/06/24 07:28 BP 122/74 04/06/24 07:28 Pulse Ox 94 L 04/06/24 08:59 FiO2 Intake & Output 04/05/24 04/06/24 04/06/24 18:59 06:59 18:59 Weight 43.091 kg Other: Voiding Method Toilet Toilet # Voids 1 1 - Labs CBC & Chem 7: 04/04/24 14:45 04/04/24 14:45 Labs: Abnormal Lab Results - Last 24 Hours (Table) 04/05/24 Range/Units 17:39 Troponin I 0.052 H* (0.000-0.034) ng/mL Microbiology - Last 24 Hours (Table) 04/04/24 14:45 Blood Culture - Preliminary Blood
[2024-04-06] MEDS: FUROSEMIDE 20 MG TAB PO SCH (16:34)
[2024-04-06] MEDS: LORazepam 0.5 MG TAB PO PRN (16:37)
[2024-04-07 09:06] LABS: BUN/Creat Ratio 47.67 Ratio (12.00-20.00); Blood Urea Nitrogen 28.6 mg/dL (9.0-27.0); Calcium 8.4 mg/dL (8.7-10.3); Carbon Dioxide 41.2 mmol/L (21.6-31.8); Chloride 94 mmol/L (96-109); Glucose 123 mg/dL (70-110); Potassium 5.1 mmol/L (3.5-5.5); Sodium 140 mmol/L (135-145)
[2024-04-07 10:54] LABS: Basophils # (A) 0.01 X 10*3/uL (0.00-0.10); Basophils % (A) 0.1 %; Eosinophils # (A) 0 X 10*3/uL (0.04-0.35); Eosinophils % (A) 0 %; HCT 23.5 % (37.2-46.3); HGB 6.8 g/dL (12.0-15.0); Hypochromasia (M) 2+; Lymphocytes # (A) 0.21 X 10*3/uL (0.90-5.00); Lymphocytes % (A) 2.3 %; MCH 29.6 pg (27.0-32.0); MCHC 28.9 g/dL (32.0-37.0); MCV 102.2 FL (80.0-97.0); Mean Platelet Volume 10.3 FL (9.5-12.2); Monocytes % (A) 3.3 %; NRBC Per 100 WBC 0 X 10*3/uL (0.00-0.01); Neutrophils # (A) 8.63 X 10*3/uL (1.80-7.70); Neutrophils % (A) 93.8 %; Platelet Count 387 X 10*3/uL (140-440); RDW 13.9 % (11.5-14.5)
--- NOTE | 2024-04-07 12:18 | P.PN ---
Subjective Progress Note Date: 04/06/24 Patient was seen for follow-up. Patient's son and [id number] are present. She states she is feeling better, but still not very strong. Patient has mild shakes of outstretched hands. No new concerns. No diplopia, no ptosis, no dysphagia or dysarthria. She appears slightly more comfortable, less dyspneic. Objective - Vital Signs Vital signs: Vital Signs Temp 97.5 F L 04/06/24 07:28 Pulse 108 H 04/06/24 12:13 Resp 18 04/06/24 07:28 BP 122/74 04/06/24 07:28 Pulse Ox 94 L 04/06/24 08:59 FiO2 Intake & Output 04/05/24 04/06/24 04/06/24 18:59 06:59 18:59 Weight 43.091 kg Other: Voiding Method Toilet Toilet # Voids 1 1 - Exam Patient's mentation is normal. Cranial nerves are normal. Patient has mild shakiness of outstretched hands. Rest of the examination is unchanged. - Labs CBC & Chem 7: 04/08/24 04:39 04/08/24 04:39 Labs: Abnormal Lab Results - Last 24 Hours (Table) 04/05/24 Range/Units 17:39 Troponin I 0.052 H* (0.000-0.034) ng/mL Microbiology - Last 24 Hours (Table) 04/04/24 14:45 Blood Culture - Preliminary Blood Assessment and Plan Assessment: * Newly diagnosed malignant thymoma. Rule out myasthenia gravis. Patient denies any clinical features of myasthenia gravis except for shortness of breath, which is likely related to her COPD exacerbation. * COPD exacerbation * Chronic tobacco use * Cachexia Plan: * Patient does not have any obvious clinical evidence of myasthenia gravis. She feels generalized weak, likely related to decreased pulmonary reserve and other medical process. Her strength appears still fairly normal. There is no evidence of fascial muscle weakness, or involvement of lingual or pharyngeal muscles. * Await acetylcholine receptor antibodies and MUSK antibodies to evaluate for myasthenia. * Other medical management as per IM and pulmonary medicine. * Neurologically clear. May follow-up above test results as an outpatient. Addendum: Acetylcholine receptor antibodies < 0.30 (normal) MUSK antibodies Negtive < 1:10. I called patient on 04/28/2024 and spoke to her daughter and informed both results.
--- NOTE | 2024-04-07 13:14 | P.PN ---
Subjective Progress Note Date: 04/07/24 This is a 78-year-old female patient with a known history of chronic and ongoing tobacco dependence of greater than 50 years, chronic obstructive pulmonary disease, chronic hypoxemic respiratory failure on home oxygen at 3 L/min. She is maintained on Trelegy and albuterol. She had recently been diagnosed with malignant thymoma in February 2024. She is following with a oncologist out of [place] and has an appointment there on April 08, 2024. She is from [place] but is here visiting and was having a 2 to 3-day history of increasing shortness of breath cough and congestion. Also has complaints of generalized weakness and fatigue. Chest x-ray reveals no acute pulmonary process. There is evidence of COPD. White count 8.6. Hemoglobin 8.9. Platelets 431. Sodium 135. Potassium 5.1. Bicarb 46. BUN 16. Creatinine 0.50. Glucose 112. She has been initiated on DuoNeb inhalations, Solu-Medrol, Symbicort and empiric antibiotics in the form of Augmentin. The patient is seen today April 06, 2024 in follow-up on the regular medical floor. She is awake and alert in no acute distress. She states her breathing is not much better today compared to yesterday. She is maintaining O2 sa turations in the 90s on 3 L/min per nasal cannula. She has been afebrile. Hemodynamically stable. Procalcitonin was negative at 0.09. CT angiogram today ruled out pulmonary embolism. There is evidence of COPD with moderate to advanced emphysema. Trace right pleural effusion. There is a 6.2 cm anterior mediastinal mass in keeping with the patient's reported history of malignant thymoma. Nonspecific 1.6 cm right hilar lymph node. Blood culture pending. She remains on DuoNeb inhalations, Symbicort, Solu-Medrol. Lovenox for DVT prophylaxis. The patient is seen today April 07, 2024 in follow-up on the regular medical floor. She is currently resting comfortably in bed. Awake and alert in no acute distress. Maintaining O2 saturations in the 90s on 3 L/min per nasal cannula. She has been afebrile. White count 9.2. Hemoglobin 6.8. Platelets 387. Sodium 140. Potassium 5.1. Bicarb 41. BUN 27. Creatinine 0.6. Glucose 123. She remains on DuoNeb inhalations, Symbicort, Solu-Medrol. Lovenox for DVT prophylaxis. On oral diuretics. Objective - Vital Signs Vital signs: Vital Signs Temp 98.0 F 04/07/24 08:00 Pulse 101 H 04/07/24 11:33 Resp 20 04/07/24 08:00 BP 145/79 04/07/24 08:00 Pulse Ox 96 04/07/24 08:00 FiO2 Intake & Output 04/06/24 04/07/24 04/07/24 18:59 06:59 18:59 Other: Voiding Method Toilet Toilet # Voids 4 2 2 - Exam GENERAL EXAM: Alert, thin 78-year-old female, on 2 L/min per nasal cannula, in no apparent distress. HEAD: Normocephalic. EYES: Normal reaction of pupils, equal size. NOSE: Clear with pink turbinates. THROAT: No erythema or exudates. NECK: No masses, no JVD. CHEST: No chest wall deformity. LUNGS: Equal air entry with end expiratory wheeze, diminished. CVS: S1 and S2 normal with no audible murmur, regular rhythm. ABDOMEN: No hepatosplenomegaly, normal bowel sounds, no guarding or rigidity. SPINE: No scoliosis or deformity SKIN: No rashes CENTRAL NERVOUS SYSTEM: No focal deficits, tone is normal in all 4 extremities. EXTREMITIES: There is no peripheral edema. No clubbing, no cyanosis. Peripheral pulses are intact. - Labs CBC & Chem 7: 04/07/24 04:22 04/07/24 04:22 Labs: Abnormal Lab Results - Last 24 Hours (Table) 04/07/24 04/07/24 Range/Units 04:22 04:22 RBC 2.30 L (4.10-5.20) X 10*6/uL Hgb 6.8 A* (12.0-15.0) g/dL Hct 23.5 L (37.2-46.3) % MCV 102.2 H (80.0-97.0) FL MCHC 28.9 L (32.0-37.0) g/dL Immature Gran # 0.05 H (0.00-0.04) X 10*3/uL Neutrophils # 8.63 H (1.80-7.70) X 10*3/uL Lymphocytes # 0.21 L (0.90-5.00) X 10*3/uL Eosinophils # 0 L (0.04-0.35) X 10*3/uL Hypochromasia (manual) 2+ A Chloride 94 L (96-109) mmol/L Carbon Dioxide 41.2 A* (21.6-31.8) mmol/L BUN 28.6 H (9.0-27.0) mg/dL BUN/Creatinine Ratio 47.67 H (12.00-20.00) Ratio Glucose 123 H (70-110) mg/dL Calcium 8.4 L (8.7-10.3) mg/dL Microbiology - Last 24 Hours (Table) 04/04/24 14:45 Blood Culture - Preliminary Blood Assessment and Plan Assessment: Acute on chronic hypoxemic respiratory failure secondary to an acute exacerbation of chronic obstructive pulmonary disease. Chest x-ray reveals no acute process. Procalcitonin negative. Pulmonary embolism ruled out Chronic and ongoing tobacco dependence of greater than 50 years Anorexia/cachexia syndrome Recent diagnosis of malignant thymoma. CT chest today reveals a 6.2 cm anterior mediastinal mass. Has an appointment April 08, 2024 with oncology of [place] Generalized weakness and fatigue, consider myasthenia gravis secondary to above Anemia, hemoglobin 6.8 to receive 1 unit of packed red blood cells Plan: The patient was seen and evaluated Labs and medications reviewed To receive a unit of blood today Continued on diuretics Continue bronchodilators, steroids We will continue to follow I have personally seen and examined the patient, performed the documentation and the assessment and plan as written. Number of minutes spent on the visit: 10.
--- NOTE | 2024-04-07 14:02 | P.PN ---
Subjective Progress Note Date: 04/07/24 78-year-old female with past medical history significant for COPD on 3 L oxygen, uses albuterol and trilogy at home, chronic current smoker for more than 50 years, history of thymoma diagnosed in February 2024 who presented to hospital with a complaint of shortness of breath. Patient's daughter at bedside who reported that patient is going to follow-up with an oncologist on Sunday at [facility] for her thymoma. Patient presented here for 2 to 3 days history of increased shortness of breath, cough and congestion, generalized weakness and fatigue. Chest x-ray negative for acute process. Chest x-ray still showed changes suggestive of COPD. Normal white count, hemoglobin low 8.9 platelet 431. BMP showed sodium 135 potassium 5.1 bicarb 46, creatinine 0.50 BUN 16, blood glucose 112. Patient received DuoNeb inhalers, Solu-Medrol Symbicort and empiric antibiotics in the form of Augmentin in the ED. 04/06/2024atient was seen and examined today. Daughter is bedside. Patient complained of anxiety, reported taking Xanax at home, started on as needed Ativan. In no acute distress. Patient reported worsening shortness of breath with anxiety. Currently on 3-4 oxygen. Remained afebrile, vital stable. Procalcitonin negative, Augmentin discontinued. CT angiogram today was negative for PE, showed evidence of COPD with moderate to advanced emphysema, trace right pleural effusion, 6.2 cm anterior mediastinal mass, nonspecific 1.6 cm right hilar lymph node. Blood cultures are pending. Patient remains on inhalers, Solu-Medrol. Pulmonary following. Anti-MuSK antibodies and acetylcholine receptor binding antibodies sent out, neurology following. Troponin trend remained flat. Cardiology consulted, troponin not consistent with ACS, echocardiogram pending 04/07. Patient seen and examined. Still complaining of shortness of breath on exertion. Hemoglobin this morning is 6.8, anemia workup ordered, stool for FOBT ordered REVIEW OF SYSTEMS: CONSTITUTIONAL: No fever, no malaise,. CARDIOVASCULAR: No chest pain, no palpitations, no syncope. PULMONARY: As mentioned above GASTROINTESTINAL: No diarrhea, no nausea, no vomiting, no abdominal pain. NEUROLOGICAL: No headaches, no weakness, PHYSICAL EXAMINATION: GENERAL: The patient is alert and oriented x3, not in any acute distress. Chronically ill looking HEENT: Pupils are round and equally reacting to light. EOMI. No scleral icterus. No conjunctival pallor. Normocephalic, atraumatic. No pharyngeal erythema. No thyromegaly. CARDIOVASCULAR: S1 and S2 present. No murmurs, rubs, or gallops. PULMONARY: Coarse breath sound bilaterally, no wheezing or crackles. ABDOMEN: Soft, nontender, nondistended, normoactive bowel sounds. No palpable organomegaly. MUSCULOSKELETAL: No joint swelling or deformity. EXTREMITIES: No cyanosis, clubbing, or pedal edema. NEUROLOGICAL: Gross neurological examination did not reveal any focal deficits. SKIN: No rashes. Assessment and plan Acute on chronic hypoxic respiratory failure: Acute COPD exacerbation: Chronic ongoing tobacco use more than 50 years: Anorexia: Cachexia Recent diagnosis of malignant thymomaappointment on Sunday with midline oncology Generalized weakness and fatigue: Elevated troponin Anemia Monitor vital signs Monitor CBC Monitor CMP Continue telemetry monitoring Encourage use of incentive spirometer Continue breathing treatments Continue steroids Ordered anemia workup Ordered FOBT Will transfuse 1 unit of packed red blood cell Pulmonary following Cardiology consultedrecommended to continue aspirin, echocardiogram, avoid beta-josé due to COPD, further recs based on echocardiogram, less likely ACS Neurology consulted and following,Anti-MuSK and acetylcholine binding antibodies and Anti-MuSK antibodies pending Labs and medication were reviewed.. Continue same treatment. Continue with symptomatic treatment. Resume home medication. Monitor labs and vitals. DVT and GI prophylaxis. Further recommendations as per clinical course of the patient Dictation was produced using [employer] dictation software. please excuse any grammatical, word or spelling errors. Objective - Vital Signs Vital signs: Vital Signs Temp 98.0 F 04/07/24 08:00 Pulse 133 H 04/07/24 08:00 Resp 20 04/07/24 08:00 BP 145/79 04/07/24 08:00 Pulse Ox 96 04/07/24 08:00 FiO2 Intake & Output 04/06/24 04/07/24 04/07/24 18:59 06:59 18:59 Other: Voiding Method Toilet # Voids 4 2 - Labs CBC & Chem 7: 04/07/24 04:22 04/07/24 04:22 Labs: Abnormal Lab Results - Last 24 Hours (Table) 04/07/24 Range/Units 04:22 Chloride 94 L (96-109) mmol/L Carbon Dioxide 41.2 A* (21.6-31.8) mmol/L BUN 28.6 H (9.0-27.0) mg/dL BUN/Creatinine Ratio 47.67 H (12.00-20.00) Ratio Glucose 123 H (70-110) mg/dL Calcium 8.4 L (8.7-10.3) mg/dL Microbiology - Last 24 Hours (Table) 04/04/24 14:45 Blood Culture - Preliminary Blood
[2024-04-07 15:51] VITALS: BMI 17.4
--- NOTE | 2024-04-07 17:51 | CA ---
Transthoracic Echo Report Name: Swetha Coffman Age: 79 Gender: F : 1945 Exam Date: 04/07/2024 08:38 Exam Location: [facility] Ht (in): 62 Wt (lb): 95 Ordering Physician: Sumit Reyna MD ([id number]) Attending/Referring Phys: Spray Drier Kiara Barriga RDCS Procedure CPT: Indications: ACS Cardiac Hx: Technical Quality: Good Contrast 1: Total Dose (mL): Contrast 2: Total Dose (mL): MEASUREMENTS (Male / Female) Normal Values 2D ECHO LV Diastolic Diameter PLAX 5.2 cm 4.2 - 5.9 / 3.9 - 5.3 cm LV Systolic Diameter PLAX 4.4 cm IVS Diastolic Thickness 0.9 cm 0.6 - 1.0 / 0.6 - 0.9 cm LVPW Diastolic Thickness 1.1 cm 0.6 - 1.0 / 0.6 - 0.9 cm LV Relative Wall Thickness 0.4 LVOT Diameter 1.7 cm LV Diastolic Volume MOD BP 164.6 cm??? 67 - 155 / 56 - 104 cm??? LV Systolic Volume MOD BP 115.4 cm??? 22 - 58 / 19 - 49 cm??? LV Ejection Fraction MOD BP 29.9 % >= 55 % LV Cardiac Index MOD BP 3751.5 cm???/min???m??? LV Diastolic Volume MOD 4C 160.2 cm??? LV Systolic Volume MOD 4C 106.9 cm??? LV Ejection Fraction MOD 4C 33.3 % LV Cardiac Index MOD 4C 4063.7 cm???/min???m??? LV Diastolic Length 4C 9.4 cm LV Systolic Length 4C 8.8 cm LV Diastolic Volume MOD 2C 169.3 cm??? LV Systolic Volume MOD 2C 122.8 cm??? LV Ejection Fraction MOD 2C 27.5 % LV Cardiac Index MOD 2C 3543.9 cm???/min???m??? LV Diastolic Length 2C 9.5 cm LV Systolic Length 2C 8.7 cm LA Volume 70.3 cm??? 18 - 58 / 22 - 52 cm??? LA Volume Index 51.5 cm???/m??? 16 - 28 cm???/m??? Ascending Aorta Diameter 3.0 cm DOPPLER AV Peak Velocity 239.3 cm/s AV Peak Gradient 22.9 mmHg AV Mean Velocity 168.3 cm/s AV Mean Gradient 12.6 mmHg AV Velocity Time Integral 42.8 cm LVOT Peak Velocity 159.9 cm/s LVOT Peak Gradient 10.2 mmHg LVOT Velocity Time Integral 28.6 cm LVOT Stroke Volume 64.3 cm??? LVOT Stroke Volume Index 46.2 ml/m??? LVOT Cardiac Index 4904.6 cm???/min???m??? AV Area Cont Eq vti 1.5 cm??? AV Area Cont Eq pk 1.5 cm??? MV Area PHT 6.5 cm??? Mitral E Point Velocity 104.3 cm/s Mitral A Point Velocity 86.9 cm/s Mitral E to A Ratio 1.2 MV Deceleration Time 116.1 ms TR Peak Velocity 374.3 cm/s TR Peak Gradient 56.0 mmHg Right Atrial Pressure 20.0 mmHg Pulmonary Artery Systolic Pressu 76.0 mmHg Right Ventricular Systolic Press 76.0 mmHg PV Peak Velocity 97.7 cm/s PV Peak Gradient 3.8 mmHg FINDINGS Left Ventricle Left ventricular ejection fraction is estimated at 30-35 %. Mildly increased posterior wall thickness. Severely increased left ventricular diastolic volume. Severely increased left ventricular systolic volume. Severely decreased left ventricular ejection fraction with regional variability. Right Ventricle Right ventricular dilatation with normal function. Severe pulmonary hypertension. Right ventricular systolic pressure estimated at 76 mm hg. Right Atrium Moderate right atrial dilatation. Left Atrium Moderately increased left atrial volume. Mildly increased left atrial area. Mitral Valve Mitral valve thickened. No evidence for mitral valve prolapse. No mitral stenosis. Moderate mitral regurgitation. Aortic Valve Trileaflet aortic valve. Aortic valve sclerosis. Mild aorta stenosis. Mean gradient 13mHg. No aortic regurgitation. Tricuspid Valve Structurally normal tricuspid valve. No tricuspid stenosis. [id number] tricuspid regurgitation. Pulmonic Valve Structurally normal pulmonic valve. No pulmonic stenosis. Mild pulmonic regurgitation. Pericardium No pericardial effusion. Aorta Normal size aortic root and proximal ascending aorta. CONCLUSIONS Diagnosis: Acute coronary syndrome, shortness of breath Severe LV dysfunction ejection fraction 30% RV enlargement with severe pulmonary hypertension Biatrial enlargement Mild aortic stenosis Previewed by: Dr. Singh Tony MD (Electronically Signed) Final Date: 07 April 2024 17:49
[2024-04-07 22:05] LABS: % Iron Saturation 6.96 (12.00-45.00)
[2024-04-08 08:44] LABS: Basophils # (A) 0 X 10*3/uL (0.00-0.10); Basophils % (A) 0 %; Eosinophils # (A) 0 X 10*3/uL (0.04-0.35); Eosinophils % (A) 0 %; HCT 29.8 % (37.2-46.3); Lymphocytes # (A) 0.38 X 10*3/uL (0.90-5.00); Lymphocytes % (A) 4.7 %; MCH 29.7 pg (27.0-32.0); MCHC 30.2 g/dL (32.0-37.0); MCV 98.3 FL (80.0-97.0); Mean Platelet Volume 10.4 FL (9.5-12.2); Monocytes # (A) 0.86 X 10*3/uL (0.20-1.00); Monocytes % (A) 10.5 %; NRBC Per 100 WBC 0 X 10*3/uL (0.00-0.01); Neutrophils # (A) 6.86 X 10*3/uL (1.80-7.70); Neutrophils % (A) 84.1 %; Platelet Count 387 X 10*3/uL (140-440); RBC 3.03 X 10*6/uL (4.10-5.20); RDW 16.3 % (11.5-14.5); WBC 8.16 X 10*3/uL (4.50-10.00)
[2024-04-08 10:37] LABS: BUN/Creat Ratio 47.83 Ratio (12.00-20.00); Blood Urea Nitrogen 28.7 mg/dL (9.0-27.0); Glucose 95 mg/dL (70-110)
[2024-04-08 10:38] LABS: ALT 17 U/L (8-44); AST 19 U/L (13-35); Albumin 3.6 g/dL (3.8-4.9); Albumin/Globulin Ratio 1.64 Ratio (1.60-3.17); Alkaline Phosphatase 52 U/L (41-126); Anion Gap <4.00 mmol/L (4.00-12.00); Calcium 8.5 mg/dL (8.7-10.3); Carbon Dioxide >45.0 mmol/L (21.6-31.8); Chloride 92 mmol/L (96-109); Globulin 2.2 g/dL (1.6-3.3); Potassium 4.9 mmol/L (3.5-5.5); Sodium 141 mmol/L (135-145); Total Bilirubin 0.3 mg/dL (0.3-1.2); Total Protein 5.8 g/dL (6.2-8.2)
--- NOTE | 2024-04-08 13:02 | P.PN ---
Subjective Progress Note Date: 04/08/24 78-year-old female with past medical history significant for COPD on 3 L oxygen, uses albuterol and trilogy at home, chronic current smoker for more than 50 years, history of thymoma diagnosed in February 2024 who presented to hospital with a complaint of shortness of breath. Patient's daughter at bedside who reported that patient is going to follow-up with an oncologist on Sunday at [facility] for her thymoma. Patient presented here for 2 to 3 days history of increased shortness of breath, cough and congestion, generalized weakness and fatigue. Chest x-ray negative for acute process. Chest x-ray still showed changes suggestive of COPD. Normal white count, hemoglobin low 8.9 platelet 431. BMP showed sodium 135 potassium 5.1 bicarb 46, creatinine 0.50 BUN 16, blood glucose 112. Patient received DuoNeb inhalers, Solu-Medrol Symbicort and empiric antibiotics in the form of Augmentin in the ED. 04/06/2024atient was seen and examined today. Daughter is bedside. Patient complained of anxiety, reported taking Xanax at home, started on as needed Ativan. In no acute distress. Patient reported worsening shortness of breath with anxiety. Currently on 3-4 oxygen. Remained afebrile, vital stable. Procalcitonin negative, Augmentin discontinued. CT angiogram today was negative for PE, showed evidence of COPD with moderate to advanced emphysema, trace right pleural effusion, 6.2 cm anterior mediastinal mass, nonspecific 1.6 cm right hilar lymph node. Blood cultures are pending. Patient remains on inhalers, Solu-Medrol. Pulmonary following. Anti-MuSK antibodies and acetylcholine receptor binding antibodies sent out, neurology following. Troponin trend remained flat. Cardiology consulted, troponin not consistent with ACS, echocardiogram pending 04/07. Patient seen and examined. Still complaining of shortness of breath on exertion. Hemoglobin this morning is 6.8, anemia workup ordered, stool for FOBT ordered 04/08. Patient seen and examined. Patient received 1 unit of packed red blood cells yesterday, hemoglobin improved to 9, anemia workup ordered and reviewed. 2D echo done showed severe LV dysfunction and EF of 30%, RV enlargement severe pulm hypertension REVIEW OF SYSTEMS: CONSTITUTIONAL: No fever, no malaise,. CARDIOVASCULAR: No chest pain, no palpitations, no syncope. PULMONARY: As mentioned above GASTROINTESTINAL: No diarrhea, no nausea, no vomiting, no abdominal pain. NEUROLOGICAL: No headaches, no weakness, PHYSICAL EXAMINATION: GENERAL: The patient is alert and oriented x3, not in any acute distress. Chronically ill looking HEENT: Pupils are round and equally reacting to light. EOMI. No scleral icterus. No conjunctival pallor. Normocephalic, atraumatic. No pharyngeal erythema. No thyromegaly. CARDIOVASCULAR: S1 and S2 present. No murmurs, rubs, or gallops. PULMONARY: Coarse breath sound bilaterally, no wheezing or crackles. ABDOMEN: Soft, nontender, nondistended, normoactive bowel sounds. No palpable organomegaly. MUSCULOSKELETAL: No joint swelling or deformity. EXTREMITIES: No cyanosis, clubbing, or pedal edema. NEUROLOGICAL: Gross neurological examination did not reveal any focal deficits. SKIN: No rashes. Assessment and plan Acute on chronic hypoxic respiratory failure: Acute COPD exacerbation: Chronic ongoing tobacco use more than 50 years: Anorexia: Cachexia Recent diagnosis of malignant thymomaappointment on Sunday with midline oncology Generalized weakness and fatigue: Elevated troponin Anemia Monitor vital signs Monitor CBC Monitor CMP Continue telemetry monitoring Encourage use of incentive spirometer Continue breathing treatments Continue prednisone Pulmonary following Cardiology consultedrecommended to continue aspirin, echocardiogram, avoid beta-josé due to COPD.2D echo done showed severe LV dysfunction and EF of 30%, RV enlargement severe pulm hypertension Neurology consulted and following,Anti-MuSK and acetylcholine binding antibodies and Anti-MuSK antibodies pending Labs and medication were reviewed.. Continue same treatment. Continue with symptomatic treatment. Resume home medication. Monitor labs and vitals. DVT and GI prophylaxis. Further recommendations as per clinical course of the patient Dictation was produced using [employer] dictation software. please excuse any grammatical, word or spelling errors. Objective - Vital Signs Vital signs: Vital Signs Temp 98.3 F 04/08/24 07:00 Pulse 100 04/08/24 09:20 Resp 17 04/08/24 07:00 BP 109/65 04/08/24 07:00 Pulse Ox 96 04/08/24 09:10 FiO2 Intake & Output 04/07/24 04/08/24 04/08/24 18:59 06:59 18:59 Intake Total 1160 Balance 1160 Weight 43.091 kg Intake: Oral 850 Blood Product 310 Rc As-1 Unit 310 [id number] Other: Voiding Method Toilet Toilet # Voids 3 2 - Labs CBC & Chem 7: 04/08/24 04:39 04/08/24 04:39 Labs: Abnormal Lab Results - Last 24 Hours (Table) 04/07/24 04/07/24 04/07/24 Range/Units 04:22 04:22 11:12 RBC 2.30 L (4.10-5.20) X 10*6/uL Hgb 6.8 A* (12.0-15.0) g/dL Hct 23.5 L (37.2-46.3) % MCV 102.2 H (80.0-97.0) FL MCHC 28.9 L (32.0-37.0) g/dL RDW (11.5-14.5) % Immature Gran # 0.05 H (0.00-0.04) X 10*3/uL Neutrophils # 8.63 H (1.80-7.70) X 10*3/uL Lymphocytes # 0.21 L (0.90-5.00) X 10*3/uL Eosinophils # 0 L (0.04-0.35) X 10*3/uL Hypochromasia (manual) 2+ A Chloride (96-109) mmol/L Carbon Dioxide (21.6-31.8) mmol/L BUN (9.0-27.0) mg/dL BUN/Creatinine Ratio (12.00-20.00) Ratio Calcium (8.7-10.3) mg/dL Iron 27 L (50-170) UG/DL % Saturation 6.96 L (12.00-45.00) Total Protein (6.2-8.2) g/dL Albumin (3.8-4.9) g/dL Crossmatch See Detail 04/08/24 04/08/24 Range/Units 04:39 04:39 RBC 3.03 L (4.10-5.20) X 10*6/uL Hgb 9.0 L (12.0-15.0) g/dL Hct 29.8 L (37.2-46.3) % MCV 98.3 H (80.0-97.0) FL MCHC 30.2 L (32.0-37.0) g/dL RDW 16.3 H (11.5-14.5) % Immature Gran # 0.06 H (0.00-0.04) X 10*3/uL Neutrophils # (1.80-7.70) X 10*3/uL Lymphocytes # 0.38 L (0.90-5.00) X 10*3/uL Eosinophils # 0 L (0.04-0.35) X 10*3/uL Hypochromasia (manual) Chloride 92 L (96-109) mmol/L Carbon Dioxide >45.0 A* (21.6-31.8) mmol/L BUN 28.7 H (9.0-27.0) mg/dL BUN/Creatinine Ratio 47.83 H (12.00-20.00) Ratio Calcium 8.5 L (8.7-10.3) mg/dL Iron (50-170) UG/DL % Saturation (12.00-45.00) Total Protein 5.8 L (6.2-8.2) g/dL Albumin 3.6 L (3.8-4.9) g/dL Crossmatch Microbiology - Last 24 Hours (Table) 04/04/24 14:45 Blood Culture - Preliminary Blood
--- NOTE | 2024-04-08 13:03 | P.PN ---
Subjective Progress Note Date: 04/08/24 Principal diagnosis: COPD. This is a 78-year-old female patient with a known history of chronic and ongoing tobacco dependence of greater than 50 years, chronic obstructive pulmonary disease, chronic hypoxemic respiratory failure on home oxygen at 3 L/min. She is maintained on Trelegy and albuterol. She had recently been diagnosed with malignant thymoma in February 2024. She is following with a oncologist out of [place] and has an appointment there on April 08, 2024. She is from [place] but is here visiting and was having a 2 to 3-day history of increasing shortness of breath cough and congestion. Also has complaints of generalized weakness and fatigue. Chest x-ray reveals no acute pulmonary process. There is evidence of COPD. White count 8.6. Hemoglobin 8.9. Platelets 431. Sodium 135. Potassium 5.1. Bicarb 46. BUN 16. Creatinine 0.50. Glucose 112. She has been initiated on DuoNeb inhalations, Solu-Medrol, Symbicort and empiric antibiotics in the form of Augmentin. The patient is seen today April 06, 2024 in follow-up on the regular medical floor. She is awake and alert in no acute distress. She states her breathing is not much better today compared to yesterday. She is maintaining O2 saturations in the 90s on 3 L/min per nasal cannula. She has been afebrile. Hemodynamically stable. Procalcitonin was negative at 0.09. CT angiogram today ruled out pulmonary embolism. There is evidence of COPD with moderate to advanced emphysema. Trace right pleural effusion. There is a 6.2 cm anterior mediastinal mass in keeping with the patient's reported history of malignant thymoma. Nonspecific 1.6 cm right hilar lymph node. Blood culture pending. She remains on DuoNeb inhalations, Symbicort, Solu-Medrol. Lovenox for DVT prophylaxis. The patient is seen today April 07, 2024 in follow-up on the regular medical floor. She is currently resting comfortably in bed. Awake and alert in no acute distress. Maintaining O2 saturations in the 90s on 3 L/min per nasal cannula. She has been afebrile. White count 9.2. Hemoglobin 6.8. Platelets 387. Sodium 140. Potassium 5.1. Bicarb 41. BUN 27. Creatinine 0.6. Glucose 123. She remains on DuoNeb inhalations, Symbicort, Solu-Medrol. Lovenox for DVT prophylaxis. On oral diuretics. Progress note dated April 08, 2024. 79-year-old female admitted with a diagnosis of COPD exacerbation. The patient is seen today in room 45. She continues on oxygen at 3 L. Saturations are 96 to 98%. Previous CT angiogram was negative for pulmonary embolism. The patient Solu-Medrol can be converted to prednisone 40 mg. The patient is not receiving any IV fluids. She did receive 1 unit of packed red blood cells, and resultant hemoglobin was 9. Current labs include a white count of 8.16, hemoglobin 9, hematocrit 29.8, and platelet count 387,000. Sodium 141, potassium 4.9, chlorides 92, CO2 greater than 45, BUN 29, creatinine 0.6. Calcium is 8.5. Procalcitonin level was 0.09. That is normal. Blood cultures are currently negative. Objective - Vital Signs Vital signs: Vital Signs Temp 98.3 F 04/08/24 07:00 Pulse 104 H 04/08/24 11:51 Resp 17 04/08/24 07:00 BP 109/65 04/08/24 07:00 Pulse Ox 96 04/08/24 09:10 FiO2 Intake & Output 04/07/24 04/08/24 04/08/24 18:59 06:59 18:59 Intake Total 1160 Balance 1160 Weight 43.091 kg Intake: Oral 850 Blood Product 310 Rc As-1 Unit 310 [id number] Other: Voiding Method Toilet Toilet # Voids 3 2 - Exam No acute distress, oriented 3. Currently on 3 L. No overt respiratory distress. HEENT examination is grossly unremarkable. Mucous membranes are moist. No oral lesions. Neck supple. Full range of motion. No adenopathy thyromegaly or neck vein distention. Cardiovascular examination reveals regular rhythm rate. S1-S2 normal. No S3 or S4. No discernible murmur noted. Lungs reveal diminished bilateral breath sounds. Minimal rhonchi. No wheezes or crackles. Breath sounds equal. Saturations are adequate. Abdomen soft bowel sounds are heard. No masses or tenderness. Extremities are intact. No cyanosis clubbing or edema. Skin is without rash or lesion. Neurologic examination is brief but nonfocal. - Labs CBC & Chem 7: 04/08/24 04:39 04/08/24 04:39 Labs: Abnormal Lab Results - Last 24 Hours (Table) 04/07/24 04/07/24 04/08/24 Range/Units 04:22 11:12 04:39 RBC 3.03 L (4.10-5.20) X 10*6/uL Hgb 9.0 L (12.0-15.0) g/dL Hct 29.8 L (37.2-46.3) % MCV 98.3 H (80.0-97.0) FL MCHC 30.2 L (32.0-37.0) g/dL RDW 16.3 H (11.5-14.5) % Immature Gran # 0.06 H (0.00-0.04) X 10*3/uL Lymphocytes # 0.38 L (0.90-5.00) X 10*3/uL Eosinophils # 0 L (0.04-0.35) X 10*3/uL Chloride (96-109) mmol/L Carbon Dioxide (21.6-31.8) mmol/L BUN (9.0-27.0) mg/dL BUN/Creatinine Ratio (12.00-20.00) Ratio Calcium (8.7-10.3) mg/dL Iron 27 L (50-170) UG/DL % Saturation 6.96 L (12.00-45.00) Total Protein (6.2-8.2) g/dL Albumin (3.8-4.9) g/dL Crossmatch See Detail 04/08/24 Range/Units 04:39 RBC (4.10-5.20) X 10*6/uL Hgb (12.0-15.0) g/dL Hct (37.2-46.3) % MCV (80.0-97.0) FL MCHC (32.0-37.0) g/dL RDW (11.5-14.5) % Immature Gran # (0.00-0.04) X 10*3/uL Lymphocytes # (0.90-5.00) X 10*3/uL Eosinophils # (0.04-0.35) X 10*3/uL Chloride 92 L (96-109) mmol/L Carbon Dioxide >45.0 A* (21.6-31.8) mmol/L BUN 28.7 H (9.0-27.0) mg/dL BUN/Creatinine Ratio 47.83 H (12.00-20.00) Ratio Calcium 8.5 L (8.7-10.3) mg/dL Iron (50-170) UG/DL % Saturation (12.00-45.00) Total Protein 5.8 L (6.2-8.2) g/dL Albumin 3.6 L (3.8-4.9) g/dL Crossmatch Microbiology - Last 24 Hours (Table) 04/04/24 14:45 Blood Culture - Preliminary Blood Assessment and Plan Assessment: Acute on chronic hypoxemic respiratory failure secondary to an acute exacerbation of chronic obstructive pulmonary disease. Chronic and ongoing tobacco dependence of greater than 50 years. Anorexia/cachexia syndrome. Recent diagnosis of malignant thymoma. Generalized weakness and fatigue, consider myasthenia gravis secondary to above. Anemia, hemoglobin 6.8 to receive 1 unit of packed red blood cells. Plan: Plan dated April 08, 2024. The patient appears to be doing a bit better. She is on 3 L. Saturations ranged from 96 to 98%. The Solu-Medrol was converted to prednisone 40 mg. She did receive 1 unit of packed red blood cells yesterday. Her hemoglobin today was 9. Labs, x-rays, and medications are reviewed. The patient is stable for discharge from the pulmonary standpoint. No additional recommendations are made. The patient apparently has a follow-up appointment, and midline, as it relates to her thymoma. Prognosis is guarded. Time with Patient: Less than 30
[2024-04-09 07:49] VITALS: BP 112/63; RESP 17; TEMP 98.2
--- NOTE | 2024-04-09 08:23 | P.PN ---
Subjective Patient is doing a lot better. She is breathing more comfortably. There are no rhonchi no crackles She looks comfortable However she does complain that she has these panic attacks since she becomes very short of breath Her 2D echo detected reduced LV systolic function She did have abnormal troponins and was seen by Dr. Reyna in consultation. The troponin pattern is flat and is consistent with a demand ischemia/type II OK. It has a flat trend She does have a cardiomyopathy 2D echo Breath sounds are reduced bilaterally with poor air entry but no rhonchi no crackles Blood pressure is normal Heart sounds are regular no murmurs Impression Patient admitted with COPD exacerbation Hypoxemia She was anemic with a low hemoglobin Flat troponin trend Cardiomyopathy likely chronic Plan Start metoprolol succinate 25 mg p.o. daily Start spironolactone 25 mg in the morning Start atorvastatin 20 mg p.o. daily Follow-up with Dr. Reyna Patient may go home from a cardiovascular standpoint and follow-up with Dr. Reyna in the next 2 weeks manage Objective - Vital Signs Vital signs: Vital Signs Temp 98.2 F 04/09/24 07:15 Pulse 96 04/09/24 07:15 Resp 17 04/09/24 07:15 BP 112/63 04/09/24 07:15 Pulse Ox 100 04/09/24 07:15 FiO2 Intake & Output 04/08/24 04/09/24 04/09/24 18:59 06:59 18:59 Intake Total 1500 Balance 1500 Intake: Oral 1500 Other: # Voids 3 7 - Labs CBC & Chem 7: 04/08/24 04:39 04/08/24 04:39 Labs: Abnormal Lab Results - Last 24 Hours (Table) 04/08/24 04/08/24 Range/Units 04:39 04:39 RBC 3.03 L (4.10-5.20) X 10*6/uL Hgb 9.0 L (12.0-15.0) g/dL Hct 29.8 L (37.2-46.3) % MCV 98.3 H (80.0-97.0) FL MCHC 30.2 L (32.0-37.0) g/dL RDW 16.3 H (11.5-14.5) % Immature Gran # 0.06 H (0.00-0.04) X 10*3/uL Lymphocytes # 0.38 L (0.90-5.00) X 10*3/uL Eosinophils # 0 L (0.04-0.35) X 10*3/uL Chloride 92 L (96-109) mmol/L Carbon Dioxide >45.0 A* (21.6-31.8) mmol/L BUN 28.7 H (9.0-27.0) mg/dL BUN/Creatinine Ratio 47.83 H (12.00-20.00) Ratio Calcium 8.5 L (8.7-10.3) mg/dL Total Protein 5.8 L (6.2-8.2) g/dL Albumin 3.6 L (3.8-4.9) g/dL
[2024-04-09] MEDS: predniSONE 20 MG TAB PO SCH (08:55)
[2024-04-09] MEDS: METOPROLOL SUCCINATE (ER) 25 MG TAB.ER.24H PO SCH (08:56)
[2024-04-09] MEDS: SPIRONOLACTONE 25 MG TAB PO SCH (08:56)
[2024-04-09] MEDS: ATORVASTATIN 20 MG TAB PO SCH (08:56)
--- NOTE | 2024-04-09 11:38 | P.PN ---
Subjective Progress Note Date: 04/09/24 This is a 78-year-old female patient with a known history of chronic and ongoing tobacco dependence of greater than 50 years, chronic obstructive pulmonary disease, chronic hypoxemic respiratory failure on home oxygen at 3 L/min. She is maintained on Trelegy and albuterol. She had recently been diagnosed with malignant thymoma in February 2024. She is following with a oncologist out of [place] and has an appointment there on April 08, 2024. She is from [place] but is here visiting and was having a 2 to 3-day history of increasing shortness of breath cough and congestion. Also has complaints of generalized weakness and fatigue. Chest x-ray reveals no acute pulmonary process. There is evidence of COPD. White count 8.6. Hemoglobin 8.9. Platelets 431. Sodium 135. Potassium 5.1. Bicarb 46. BUN 16. Creatinine 0.50. Glucose 112. She has been initiated on DuoNeb inhalations, Solu-Medrol, Symbicort and empiric antibiotics in the form of Augmentin. The patient is seen today April 06, 2024 in follow-up on the regular medical floor. She is awake and alert in no acute distress. She states her breathing is not much better today compared to yesterday. She is maintaining O2 sa turations in the 90s on 3 L/min per nasal cannula. She has been afebrile. Hemodynamically stable. Procalcitonin was negative at 0.09. CT angiogram today ruled out pulmonary embolism. There is evidence of COPD with moderate to advanced emphysema. Trace right pleural effusion. There is a 6.2 cm anterior mediastinal mass in keeping with the patient's reported history of malignant thymoma. Nonspecific 1.6 cm right hilar lymph node. Blood culture pending. She remains on DuoNeb inhalations, Symbicort, Solu-Medrol. Lovenox for DVT prophylaxis. The patient is seen today April 07, 2024 in follow-up on the regular medical floor. She is currently resting comfortably in bed. Awake and alert in no acute distress. Maintaining O2 saturations in the 90s on 3 L/min per nasal cannula. She has been afebrile. White count 9.2. Hemoglobin 6.8. Platelets 387. Sodium 140. Potassium 5.1. Bicarb 41. BUN 27. Creatinine 0.6. Glucose 123. She remains on DuoNeb inhalations, Symbicort, Solu-Medrol. Lovenox for DVT prophylaxis. On oral diuretics. Progress note dated April 08, 2024. 79-year-old female admitted with a diagnosis of COPD exacerbation. The patient is seen today in room 45. She continues on oxygen at 3 L. Saturations are 96 to 98%. Previous CT angiogram was negative for pulmonary embolism. The patient Solu-Medrol can be converted to prednisone 40 mg. The patient is not receiving any IV fluids. She did receive 1 unit of packed red blood cells, and resultant hemoglobin was 9. Current labs include a white count of 8.16, hemoglobin 9, hematocrit 29.8, and platelet count 387,000. Sodium 141, potassium 4.9, chlorides 92, CO2 greater than 45, BUN 29, creatinine 0.6. Calcium is 8.5. Procalcitonin level was 0.09. That is normal. Blood cultures are currently negative. The patient is seen today April 09, 2024 in follow-up on the regular medical floor. Currently sitting up in bed. Awake and alert in no acute distress. She is maintaining O2 saturations in the 90s on 3 L/min per nasal cannula. She is afebrile. Hemodynamically stable. Her echocardiogram did reveal early impaired left ventricular systolic function with an ejection fraction of 30%. Severe pulmonary hypertension. Mild aortic stenosis. She is status post 1 unit of packed red blood cells. Current hemoglobin 9.0. She is maintained on DuoNeb inhalations, Symbicort, prednisone taper. Lovenox for DVT prophylaxis. Oral diuretics. Objective - Vital Signs Vital signs: Vital Signs Temp 98.2 F 04/09/24 07:15 Pulse 112 H 04/09/24 08:34 Resp 17 04/09/24 07:15 BP 112/63 04/09/24 07:15 Pulse Ox 100 04/09/24 07:15 FiO2 Intake & Output 04/08/24 04/09/24 04/09/24 18:59 06:59 18:59 Intake Total 1500 120 Balance 1500 120 Intake: Oral 1500 120 Other: # Voids 3 7 - Exam GENERAL EXAM: Alert, thin, frail 79-year-old female, on 3 L/min per nasal cannula, in no apparent distress. HEAD: Normocephalic. EYES: Normal reaction of pupils, equal size. NOSE: Clear with pink turbinates. THROAT: No erythema or exudates. NECK: No masses, no JVD. CHEST: No chest wall deformity. LUNGS: Equal air entry with end expiratory wheeze, diminished. CVS: S1 and S2 normal with no audible murmur, regular rhythm. ABDOMEN: No hepatosplenomegaly, normal bowel sounds, no guarding or rigidity. SPINE: No scoliosis or deformity SKIN: No rashes CENTRAL NERVOUS SYSTEM: No focal deficits, tone is normal in all 4 extremities. EXTREMITIES: There is no peripheral edema. No clubbing, no cyanosis. Peripheral pulses are intact. - Labs CBC & Chem 7: 04/08/24 04:39 04/08/24 04:39 Assessment and Plan Assessment: Acute on chronic hypoxemic respiratory failure secondary to an acute exacerbation of chronic obstructive pulmonary disease. Chest x-ray reveals no acute process. Procalcitonin negative. Pulmonary embolism ruled out Myopathy with severely impaired left ventricular systolic function with an ejection fraction of 30% Chronic and ongoing tobacco dependence of greater than 50 years Anorexia/cachexia syndrome Recent diagnosis of malignant thymoma. CT chest today reveals a 6.2 cm anterior mediastinal mass. Has an appointment April 08, 2024 with oncology of [place] Generalized weakness and fatigue, consider myasthenia gravis secondary to above Anemia, hemoglobin 6.8 to receive 1 unit of packed red blood cells Plan: The patient was seen and evaluated Echocardiogram and medications reviewed Continued on diuretics Continue her home Trelegy and albuterol Complete a prednisone taper Could follow-up in our office in 1 week if she stays in town The patient normally resides in [place] I have personally seen and examined the patient, performed the documentation and the assessment and plan as written. Number of minutes spent on the visit: 10.
[2024-04-09 12:01] VITALS: PULSE 104
--- NOTE | 2024-04-09 12:50 | P.DS ---
Providers Date of admission: 04/04/24 17:57 Expected date of discharge: 04/09/24 Attending physician: Yue Wiseman Consults: 04/05/24 11:16 Consult Physician Routine Consulting Provider: Mora Cannon Consult Reason/Comments: Acute COPD Do you want consulting provider notified?: Yes 04/05/24 11:19 Consult Physician Routine Consulting Provider: Sumit Reyna Consult Reason/Comments: Elevated troponin, Dyspnea Do you want consulting provider notified?: Yes 04/05/24 14:51 Consult Physician Routine Consulting Provider: Isrrael Lira Consult Reason/Comments: Generalized weakness, history of thymoma Do you want consulting provider notified?: Yes 04/08/24 15:34 Consult Physician Routine Consulting Provider: Singh Tony Consult Reason/Comments: abnormal echo Do you want consulting provider notified?: Yes Primary care physician: Cody Johnson [facility] Course: Discharge diagnoses; Acute on chronic hypoxic respiratory failure: Acute COPD exacerbation: Cardiomyopathy Acute systolic CHF Chronic ongoing tobacco use more than 50 years: Anorexia: Cachexia Recent diagnosis of malignant thymomaappointment on Sunday with [facility] onc[facility] Generalized weakness and fatigue: Elevated troponin Anemia Hospital course; 78-year-old female with past medical history significant for COPD on 3 L oxygen, uses albuterol and trilogy at home, chronic current smoker for more than 50 years, history of thymoma diagnosed in February 2024 who presented to hospital with a complaint of shortness of breath. Patient's daughter at bedside who reported that patient is going to follow-up with an oncologist on Sunday at [place] for her thymoma. Patient presented here for 2 to 3 days history of increased shortness of breath, cough and congestion, generalized weakness and fatigue. Chest x-ray negative for acute process. Chest x-ray still showed changes suggestive of COPD. Normal white count, hemoglobin low 8.9 platelet 431. BMP showed sodium 135 potassium 5.1 bicarb 46, creatinine 0.50 BUN 16, blood glucose 112. Patient received DuoNeb inhalers, Solu-Medrol Symbicort and empiric antibiotics in the form of Augmentin in the ED. 4patient was seen and examined today. Daughter is bedside. Patient complained of anxiety, reported taking Xanax at home, started on as needed Ativan. In no acute distress. Patient reported worsening shortness of breath with anxiety. Currently on 3-4 oxygen. Remained afebrile, vital stable. Procalcitonin negative, Augmentin discontinued. CT angiogram today was negative for PE, showed evidence of COPD with moderate to advanced emphysema, trace right pleural effusion, 6.2 cm anterior mediastinal mass, nonspecific 1.6 cm right hilar lymph node. Blood cultures are pending. Patient remains on inhalers, Solu-Medrol. Pulmonary following. Anti-MuSK antibodies and acetylcholine receptor binding antibodies sent out, neurology following. Troponin trend remained flat. Cardiology consulted, troponin not consistent with ACS, echocardiogram pending 04/07. Patient seen and examined. Still complaining of shortness of breath on exertion. Hemoglobin this morning is 6.8, anemia workup ordered, stool for FOBT ordered 04/08. Patient seen and examined. Patient received 1 unit of packed red blood cells yesterday, hemoglobin improved to 9, anemia workup ordered and reviewed. 2D echo done showed severe LV dysfunction and EF of 30%, RV enlargement severe pulm hypertension 04/09. Patient seen examined. Cardiology eval the patient, reviewed 2D echo and discussed results with patient's family, started patient onLipitor, Aldactone, Toprol, outpatient follow-up with cardiology. Being discharged stable condition PHYSICAL EXAMINATION: GENERAL: The patient is alert and oriented x3, not in any acute distress. Well developed, well nourished. HEENT: Pupils are round and equally reacting to light. EOMI. No scleral icterus. No conjunctival pallor. Normocephalic, atraumatic. No pharyngeal erythema. No thyromegaly. CARDIOVASCULAR: S1 and S2 present. No murmurs, rubs, or gallops. PULMONARY: Coarse breath sound bilaterally, no wheezing or crackles. ABDOMEN: Soft, nontender, nondistended, normoactive bowel sounds. No palpable organomegaly. MUSCULOSKELETAL: No joint swelling or deformity. EXTREMITIES: No cyanosis, clubbing, or pedal edema. NEUROLOGICAL: Gross neurological examination did not reveal any focal deficits. SKIN: No rashes. Dictation was produced using Netsocketation software. please excuse any grammatical, word or spelling errors. Patient Condition at Discharge: Fair Plan - Discharge Summary Discharge Rx Participant: Yes New Discharge Prescriptions: New predniSONE [Deltasone] 40 mg PO DAILY 4 Days #8 tab Atorvastatin [Lipitor] 20 mg PO DAILY #30 tab Furosemide [Lasix] 20 mg PO DAILY #30 tab Spironolactone [Aldactone] 25 mg PO DAILY #30 tab Metoprolol Succinate (ER) [Toprol XL] 25 mg PO DAILY #30 tab Continue Albuterol Nebulized [Ventolin Nebulized] 2.5 mg INHALATION RT-QID PRN PRN Reason: Shortness Of Breath Or Wheezing Albuterol Inhaler [Ventolin Hfa Inhaler] 2 puff INHALATION RT-Q6H PRN PRN Reason: Wheezing Fluticasone/Umeclidin/Vilanter [Trelegy Ellipta 100-62.5-25] 1 puff INHALATION RT-DAILY ALPRAZolam [Xanax] 0.25 mg PO HS PRN PRN Reason: Anxiety Discharge Medication List ALPRAZolam [Xanax] 0.25 mg PO HS PRN 04/04/24 [History] Albuterol Inhaler [Ventolin Hfa Inhaler] 2 puff INHALATION RT-Q6H PRN 04/04/24 [History] Albuterol Nebulized [Ventolin Nebulized] 2.5 mg INHALATION RT-QID PRN 04/04/24 [History] Fluticasone/Umeclidin/Vilanter [Trelegy Ellipta 100-62.5-25] 1 puff INHALATION RT-DAILY 04/04/24 [History] Furosemide [Lasix] 20 mg PO DAILY #30 tab 04/08/24 [Rx] predniSONE [Deltasone] 40 mg PO DAILY 4 Days #8 tab 04/08/24 [Rx] Atorvastatin [Lipitor] 20 mg PO DAILY #30 tab 04/09/24 [Rx] Metoprolol Succinate (ER) [Toprol XL] 25 mg PO DAILY #30 tab 04/09/24 [Rx] Spironolactone [Aldactone] 25 mg PO DAILY #30 tab 04/09/24 [Rx] Follow up Appointment(s)/Referral(s): Sumit Reyna MD [STAFF PHYSICIAN] - 2 Weeks (Spoke with Jes from Dr. Jacobs office they will call patient to make appointment) Cody Johnson MD [Primary Care Provider] - 04/14/24 10:30 am () Patient Instructions/Handouts: COPD (Chronic Obstructive Pulmonary Disease) (DC) Discharge Disposition: HOME SELF-CARE
--- NOTE | 2024-04-25 07:32 | CDI ---
Documentation Clarification Form Date: 04/25/2024 07:19:45 AM From: Lara Paul Admit Date: 04/04/2024 05:57:00 PM Patient Name: Swetha Coffman Visit Number: [id number] Discharge Date: 04/09/2024 12:20:00 PM ATTENTION: The Clinical Documentation Specialists (CDI) and [facility] Coding Staff appreciate your assistance in clarifying documentation. Please respond to the clarification below the line at the bottom and electronically sign. The CDI & [facility] Coding staff will review the response and follow-up if needed. Please note: Queries are made part of the Legal Health Record. If you have any questions, please contact the author of this message via ITS. Doctor/Provider: Yue Wiseman Conflicting documentation has been found in the medical record. As attending physician, please provide clarification. DCS - "Elevated troponins" Per Cardiology PN 04/09 - "The troponin pattern is flat and is consistent with demand ischemia/type II CT." History/Risk Factors: Cardiomyopathy, COPD, malignant thymoma Clinical Indicators: Elevated troponins: .052, .042, .052 Treatment: Aspirin, Lovenox, Lasix Please clarify which diagnosis is most appropriate: [ ] elevated troponins [ ] Demand ischemia/type II CT [ ] Other (please specify) [ ] Unable to determine Demand ischemia/type II CT MTDD
--- NOTE | 2024-04-28 08:43 | CDI ---
Documentation Clarification Form Date: 04/28/2024 08:34:00 AM From: Lara Paul Admit Date: 04/04/2024 05:57:00 PM Patient Name: Swetha Coffman Visit Number: [id number] Discharge Date: 04/09/2024 12:20:00 PM ATTENTION: The Clinical Documentation Specialists (CDI) and [facility] Coding Staff appreciate your assistance in clarifying documentation. Please respond to the clarification below the line at the bottom and electronically sign. The CDI & [facility] Coding staff will review the response and follow-up if needed. Please note: Queries are made part of the Legal Health Record. If you have any questions, please contact the author of this message via ITS. Doctor/Provider: Luis Velazco Acute systolic CHF is documented in the DCS. For each diagnosis, documentation must be clear to determine if the condition was present at the time of the patients inpatient admission or developed during the hospital stay. Additional clarification regarding the diagnosis of Acute Systolic CHF is requested. History/Risk Factors: Patient with Type II MT, respiratory failure, Clinical Indicators: EF 30% per Echo done on 04/04 Treatment: Lasix ordered 04/06 PO Definition of Present on Admission (POA): A diagnosis present at the time the order for admission to inpatient status was written. Please clarify if the Acute systolic CHF was POA [ y ] Y = Yes, the condition was present at the time of the order for inpatient admission. [ ] N = No, the condition was not present at the time of the order for inpatient admission. [ ] W = Clinically undetermined if the condition was present at the time of the order for inpatient admission. MTDD
== END 2024-04-09 12:20 | disposition home or self-care (01) | DRG 280 ==
LOC: EC 13:49 → 4SSUR 17:57
PROVIDERS: ADMIT Hospitalist; ATTEND Hospitalist
PROC: 30243N1 Transfusion of Nonautologous Red Blood Cells into Central Vein, Percutaneous Approach (ICD-10-PCS; principal; 2024-04-07)
DX: I50.21 Acute systolic (congestive) heart failure (principal); J96.21 Acute and chronic respiratory failure with hypoxia; I21.A1 Myocardial infarction type 2; I42.9 Cardiomyopathy, unspecified; J44.1 Chronic obstructive pulmonary disease with (acute) exacerbation; R64 Cachexia; C37 Malignant neoplasm of thymus; Z68.1 Body mass index [BMI] 19.9 or less, adult; D64.9 Anemia, unspecified; F41.0 Panic disorder [episodic paroxysmal anxiety]; I27.20 Pulmonary hypertension, unspecified; F17.200 Nicotine dependence, unspecified, uncomplicated; J43.9 Emphysema, unspecified; Z66 Do not resuscitate; Z79.51 Long term (current) use of inhaled steroids; Z79.52 Long term (current) use of systemic steroids; Z79.899 Other long term (current) drug therapy; Z99.81 Dependence on supplemental oxygen
CPT/HCPCS: 36415; 71046; 71275; 80048; 80053; 81001; 82607; 82728; 82747; 83519; 83540; 83550; 83605; 83735; 84145; 84484; 85025; 85610; 85730; 86041; 86850; 86900; 86901; 86920; 87040; 93005; 93306; 94640; 94760

== ENCOUNTER 2024-04-10 12:10 | Inpatient (IN) | payer MEDICARE, BC ==
--- NOTE | 2024-04-10 12:44 | ED ---
GI Bleed HPI - General Source: patient, family, RN notes reviewed Mode of arrival: wheelchair Limitations: no limitations <Barbara Pepper - Last Filed: 04/10/24 12:43> <Davidson Mcmahon - Last Filed: 04/10/24 14:40> - General Chief complaint: GI Bleed Stated complaint: black stool/weakness Time Seen by Provider: 04/10/24 12:30 - History of Present Illness Initial comments: Quick [id number] female presents emergency department chief complaint of dark stools and weakness. Patient was admitted last week Sunday and was discharged home yesterday. Family states that patient's hemoglobin was at 6.8 she had received a unit of blood. Patient has been passing multiple dark stool since being at home. (Barbara Pepper) - Related Data Home Medications Medication Instructions Recorded Confirmed ALPRAZolam [Xanax] 0.25 mg PO HS PRN 04/04/24 04/04/24 Albuterol Inhaler [Ventolin Hfa 2 puff INHALATION RT-Q6H PRN 04/04/24 04/04/24 Inhaler] Albuterol Nebulized [Ventolin 2.5 mg INHALATION RT-QID PRN 04/04/24 04/04/24 Nebulized] Fluticasone/Umeclidin/Vilanter 1 puff INHALATION RT-DAILY 04/04/24 04/04/24 [Doreen Chavirata 100-62.5-25] Previous Rx's Medication Instructions Recorded Furosemide [Lasix] 20 mg PO DAILY #30 tab 04/08/24 predniSONE [Deltasone] 40 mg PO DAILY 4 Days #8 tab 04/08/24 Atorvastatin [Lipitor] 20 mg PO DAILY #30 tab 04/09/24 Metoprolol Succinate (ER) [Toprol 25 mg PO DAILY #30 tab 04/09/24 XL] Spironolactone [Aldactone] 25 mg PO DAILY #30 tab 04/09/24 Allergies Allergy/AdvReac Type Severity Reaction Status Date / Time No Known Allergies Allergy Unverified 04/10/24 12:18 Review of Systems ROS Other: All systems not noted in ROS Statement are negative. <Barbara Pepper - Last Filed: 04/10/24 12:43> ROS Other: All systems not noted in ROS Statement are negative. <Davidson Mcmahon - Last Filed: 04/10/24 14:40> ROS Statement: Those systems with pertinent positive or pertinent negative responses have been documented in the HPI. Past Medical History Past Medical History: Cancer, COPD History of Any Multi-Drug Resistant Organisms: None Reported Past Surgical History: No Surgical Hx Reported Past Psychological History: Panic Disorder Smoking Status: Current every day smoker Past Alcohol Use History: None Reported Past Drug Use History: None Reported <Barbara Pepper - Last Filed: 04/10/24 12:43> General Exam Limitations: no limitations <Barbara Pepper - Last Filed: 04/10/24 12:43> General appearance: alert, in no apparent distress Head exam: Present: atraumatic, normocephalic Eye exam: Present: normal appearance, PERRL ENT exam: Present: normal exam Respiratory exam: Present: decreased breath sounds. Absent: respiratory distress, wheezes Cardiovascular Exam: Present: regular rate, normal rhythm GI/Abdominal exam: Present: soft. Absent: distended, tenderness, guarding, rebound Rectal exam: Present: black stool Neurological exam: Present: alert, oriented X3 Psychiatric exam: Present: normal affect, normal mood <Davidson Mcmahon - Last Filed: 04/10/24 14:40> - General Exam Comments Initial Comments: Visual Physical Exam Vital signs reviewed General: Well-appearing, nontoxic, no acute distress. Head: Normocephalic, atraumatic Eyes: PERRLA, EOMI ENT: Airway patent Chest: Nonlabored breathing Skin: No visual rash, normal skin tone Neuro: Alert and oriented 3 Musculoskeletal: No gross abnormalities (Barbara ePpper) Course Vital Signs 04/10/24 12:16 Temperature 98.3 F Pulse Rate 88 Respiratory 20 Rate Blood Pressure 104/50 O2 Sat by Pulse 99 Oximetry Medical Decision Making <Barbara Pepper - Last Filed: 04/10/24 12:43> - Lab Data Result diagrams: 04/10/24 13:05 04/10/24 13:05 <Davidson Mcmahon - Last Filed: 04/10/24 14:40> - Medical Decision Making I completed the quick note portion of this chart signed Barbara Pepper PA-C (Stieler,Barbara) Was pt. sent in by a medical professional or institution (, ADÁN, PRODUCTION GENERALIST, urgent care, hospital, or residential...) When possible be specific @ -No Did you speak to anyone other than the patient for history (EMS, parent, family, police, friend...)? What history was obtained from this source @ -No Did you review nursing and triage notes (agree or disagree)? Why? @ -I reviewed and agree with nursing and triage notes Were old charts reviewed (outside hosp., previous admission, EMS record, old EKG, old radiological studies, urgent care reports/EKG's, residential records)? Report findings @ -No old charts were reviewed Differential GI Bleed: Esophageal varices, aortoenteric fistula, Bushra-Wallace, gastritis, peptic ulcer disease, diverticulosis, inflammatory bowel disease, hemorrhoids, fissure, colitis, malignancy, Meckel's diverticulum, this is not meant to be an all-in clusive list. EKG interpreted by me (3pts min.). @EKG: Sinus rhythm rate of 88, ID interval 121, QRS duration 94, QTc 396, no ST segment elevation. T wave inversion in V6. X-rays interpreted by me (1pt min.). @ -None done CT interpreted by me (1pt min.). @ -None done U/S interpreted by me (1pt. min.). @ -None done What testing was considered but not performed or refused? (CT, X-rays, U/S, lab s)? Why? @ -None What meds were considered but not given or refused? Why? @ -None Did you discuss the management of the patient with other professionals (professionals i.e. , ADÁN, PRODUCTION GENERALIST, lab, RT, psych nurse, social work nurse, chisel worker, teacher, commercial account officer, caser up)? Give summary @Dr. Wiseman, he is able to evaluate the patient to the emergency department, will accept admission. Was smoking cessation discussed for >3mins.? @ -No Was critical care preformed (if so, how long)? @ yes, 35 Were there social determinants of health that impacted care today? How? (Homelessness, low income, unemployed, alcoholism, drug addiction, transportation, low edu. Level, literacy, decrease access to med. care, ch[facility], rehab)? @ -No Was there de-escalation of care discussed even if they declined (Discuss DNR or withdrawal of care, Hospice)? DNR status @ -No What co-morbidities impacted this encounter? (DM, HTN, Smoking, COPD, CAD, Cancer, CVA, ARF, Chemo, Hep., AIDS, mental health diagnosis, sleep apnea, morbid obesity)? @ -None Was patient admitted / discharged? Hospital course, mention meds given and route, prescriptions, significant lab abnormalities, going to OR and other pertinent info. @ -[79-year-old female with dark stool, generalized weakness. Patient does have melanotic stool on exam. She has no abdominal pain or tenderness. Her initial vital signs are stable. Hemoglobin is 9.2 which is stable for this patient. Her occult is positive. She started on Protonix and will be admitted for GI consultation. Undiagnosed new problem with uncertain prognosis? @ -No Drug Therapy requiring intensive monitoring for toxicity (Heparin, Nitro, Insulin, Cardizem)? @ -No Were any procedures done? @ -No Diagnosis/symptom? @Melanotic stool, GI bleed Acute, or Chronic, or Acute on Chronic? @Acute Uncomplicated (without systemic symptoms) or Complicated (systemic symptoms)? @ -Default Side effects of treatment? @ -No Exacerbation, Progression, or Severe Exacerbation? @ -No Poses a threat to life or bodily function? How? (Chest pain, [place], [place], pneumonia, PE, COPD, DKA, ARF, appy, cholecystitis, CVA, Diverticulitis, Homicidal, Suicidal, threat to staff... and all critical care pts) @ -Yes, GI bleed (Davidson Mcmahon) - Lab Data Lab Results 04/10/24 04/10/24 04/10/24 Range/Units 12:56 13:05 13:05 WBC 7.2 (3.8-10.6) k/uL RBC 3.20 L (3.80-5.40) m/uL Hgb 9.2 L (11.4-16.0) gm/dL Hct 31.1 L (34.0-46.0) % MCV 97.2 (80.0-100.0) fL MCH 28.8 (25.0-35.0) pg MCHC 29.6 L (31.0-37.0) g/dL RDW 13.7 (11.5-15.5) % Plt Count 381 (150-450) k/uL MPV 7.4 Neutrophils % 75 % Lymphocytes % 11 % Monocytes % 11 % Eosinophils % 1 % Basophils % 0 % Neutrophils # 5.4 (1.3-7.7) k/uL Lymphocytes # 0.8 L (1.0-4.8) k/uL Monocytes # 0.8 (0-1.0) k/uL Eosinophils # 0.1 (0-0.7) k/uL Basophils # 0.0 (0-0.2) k/uL Hypochromasia Marked APTT (22.0-30.0) sec Sodium (137-145) mmol/L Potassium (3.5-5.1) mmol/L Chloride (98-107) mmol/L Carbon Dioxide (22-30) mmol/L Anion Gap mmol/L BUN (7-17) mg/dL Creatinine (0.52-1.04) mg/dL Est GFR (CKD-EPI)AfAm (>60 ml/min/1.73 sqM) Est GFR (CKD-EPI)NonAf (>60 ml/min/1.73 sqM) Glucose (74-99) mg/dL Calcium (8.4-10.2) mg/dL Magnesium (1.6-2.3) mg/dL Total Bilirubin (0.2-1.3) mg/dL AST (14-36) U/L ALT (4-34) U/L Alkaline Phosphatase (38-126) U/L Total Protein (6.3-8.2) g/dL Albumin (3.5-5.0) g/dL Stool Occult Blood Positive H (Negative) Blood Type A Positive Blood Type Recheck A Pos Bld Type Recheck Status No Spec Expiration Date 04/13/2024 - 235504/10/24 04/10/24 Range/Units 13:05 13:05 WBC (3.8-10.6) k/uL RBC (3.80-5.40) m/uL Hgb (11.4-16.0) gm/dL Hct (34.0-46.0) % MCV (80.0-100.0) fL MCH (25.0-35.0) pg MCHC (31.0-37.0) g/dL RDW (11.5-15.5) % Plt Count (150-450) k/uL MPV Neutrophils % % Lymphocytes % % Monocytes % % Eosinophils % % Basophils % % Neutrophils # (1.3-7.7) k/uL Lymphocytes # (1.0-4.8) k/uL Monocytes # (0-1.0) k/uL Eosinophils # (0-0.7) k/uL Basophils # (0-0.2) k/uL Hypochromasia APTT 24.9 (22.0-30.0) sec Sodium 137 (137-145) mmol/L Potassium 4.2 (3.5-5.1) mmol/L Chloride 85 L (98-107) mmol/L Carbon Dioxide 52 H* (22-30) mmol/L Anion Gap 0 mmol/L BUN 32 H (7-17) mg/dL Creatinine 0.54 (0.52-1.04) mg/dL Est GFR (CKD-EPI)AfAm >90 (>60 ml/min/1.73 sqM) Est GFR (CKD-EPI)NonAf >90 (>60 ml/min/1.73 sqM) Glucose 80 (74-99) mg/dL Calcium 8.4 (8.4-10.2) mg/dL Magnesium 2.3 (1.6-2.3) mg/dL Total Bilirubin 0.5 (0.2-1.3) mg/dL AST 30 (14-36) U/L ALT 15 (4-34) U/L Alkaline Phosphatase 44 (38-126) U/L Total Protein 5.8 L (6.3-8.2) g/dL Albumin 3.4 L (3.5-5.0) g/dL Stool Occult Blood (Negative) Blood Type Blood Type Recheck Bld Type Recheck Status Spec Expiration Date Critical Care Time Critical Care Time: Yes Total Critical Care Time: 35 <Davidson Mcmahon - Last Filed: 04/10/24 14:40> Disposition <Barbara Pepper - Last Filed: 04/10/24 12:43> Is patient prescribed a controlled substance at d/c from ED?: No Time of Disposition: 14:40 <Davidson Mcmahon - Last Filed: 04/10/24 14:40> Clinical Impression: Melena, Upper gastrointestinal hemorrhage Disposition: ADMITTED IP TO THIS HOSP Condition: Stable Referrals: Cody Johnson MD [Primary Care Provider] - 1-2 days
[2024-04-10 13:32] LABS: Basophils % (A) 0 %; Eosinophils # (A) 0.1 k/uL (0-0.7); Eosinophils % (A) 1 %; HCT 31.1 % (34.0-46.0); HGB 9.2 gm/dL (11.4-16.0); Hypochromasia Marked; Lymphocytes # (A) 0.8 k/uL (1.0-4.8); Lymphocytes % (A) 11 %; MCH 28.8 pg (25.0-35.0); MCHC 29.6 g/dL (31.0-37.0); MCV 97.2 fL (80.0-100.0); Mean Platelet Volume 7.4; Monocytes # (A) 0.8 k/uL (0-1.0); Monocytes % (A) 11 %; Neutrophils # (A) 5.4 k/uL (1.3-7.7); Neutrophils % (A) 75 %; Platelet Count 381 k/uL (150-450); RDW 13.7 % (11.5-15.5); WBC 7.2 k/uL (3.8-10.6)
[2024-04-10] MEDS ORDERED: HYDROcodone/APAP 5-325MG 1 EACH TAB PO PRN (13:38)
[2024-04-10 13:55] LABS: ALT 15 U/L (4-34); AST 30 U/L (14-36); African American GFR (CKD) >90 (>60 ml/min/1.73 sqM); Albumin 3.4 g/dL (3.5-5.0); Alkaline Phosphatase 44 U/L (38-126); Blood Urea Nitrogen 32 mg/dL (7-17); Calcium 8.4 mg/dL (8.4-10.2); Chloride 85 mmol/L (98-107); Glucose 80 mg/dL (74-99); Magnesium 2.3 mg/dL (1.6-2.3); Non-African American GFR(CKD) >90 (>60 ml/min/1.73 sqM); Potassium 4.2 mmol/L (3.5-5.1); Sodium 137 mmol/L (137-145); Total Bilirubin 0.5 mg/dL (0.2-1.3); Total Protein 5.8 g/dL (6.3-8.2)
[2024-04-10 14:01] LABS: Anion Gap 0 mmol/L
--- NOTE | 2024-04-10 14:03 | XR ---
EXAMINATION TYPE: XR chest 1V portable DATE OF EXAM: 04/10/2024 COMPARISON: 04/04/2024 INDICATION: CHF TECHNIQUE: Frontal and lateral views of the chest are obtained. FINDINGS: The heart size is enlarged. The pulmonary vasculature is mildly prominent. Small infiltrate is at the right base. Correlate for atelectasis or pneumonia. Atypical pulmonary matilde ma could be considered.. There is hyperinflation, consider COPD IMPRESSION: 1. Cardiomegaly with mild prominence of vascular markings. 2. Mild right lower lobe infiltrate. Correlate for pneumonia and atelectasis. Atypical pulmonary hussain a be considered. [facility], , 04/10/2024 2:01 PM
[2024-04-10 14:08] LABS: Carbon Dioxide 52 mmol/L (22-30)
[2024-04-10] MEDS ORDERED: NALOXONE 0.4 MG/ML 1 ML VIAL IV PRN (14:36)
[2024-04-10] MEDS: PANTOPRAZOLE 40 MG/10 ML VIAL IVP SCH (14:39)
[2024-04-10] MEDS: methylPREDNISolone SOD SUCCI 40 MG/ML 1 ML VIAL IV SCH (14:40)
--- NOTE | 2024-04-10 14:40 | CT ---
EXAMINATION TYPE: CT abdomen pelvis wo con DATE OF EXAM: 04/10/2024 COMPARISON: Chest 04/06/2024 HISTORY: 79-year-old female GI Bleed, Thymoma CT DLP: 343.7 mGycm. Automated exposure control for dose reduction was used. TECHNIQUE: Contiguous axial scanning of the abdomen and pelvis without IV contrast. Coronal and sagit farrukh reconstructions performed. FINDINGS: Small right and trace left pleural effusions. Heart is mildly enlarged. Patchy bibasilar opacities ar e present. Changes are relatively similar to recent CT chest. Noncontrast appearance of the liver, adrenal glands, spleen, and pancreas show no gross abnormality. Gallbladder not identified. Punctate 2 mm nonobstructive right renal stone. A couple left-sided renal stones, largest measuring 8 mm. Mild bilateral pelviectasis is noted. There appears to be mild to moderate diffuse small bowel fold thickening throughout especially along the left side of the abdomen. Mild to moderate colonic stool. Redundant sigmoid colon with distal sig moid diverticulosis. The lack of contrast and clustering of nonopacified bowel makes assessment limit ed. Bladder is urine distended. Uterus anteverted. Ovaries not well delineated from adjacent nonopacified bowel loops. No abnormal fluid collection in the pelvis or pelvic lymphadenopathy. Bones: Moderate to advanced spondylotic change throughout the lumbar spine. IMPRESSION: 1. Small right and trace left pleural effusions with prominent patchy bibasilar opacities remain unc hanged. Correlate as to etiology. Infectious or aspiration pneumonitis are in the differential. 2. A couple of nonobstructive left renal stones measuring up to 8 mm. There is mild bilateral pelvie ctasis which may be transient. No obstructing ureteral stone is clearly identified. 3. There appears to be diffuse fold thickening of small bowel especially in the left side of the abd omen. Consider an infectious or inflammatory enteritis. Limited by noncontrast technique and crowding of soft tissue structures in the abdomen and pelvis. 4. Mid to distal sigmoid diverticulosis. No convincing findings of acute diverticulitis. [facility], , 04/10/2024 2:37 PM
--- NOTE | 2024-04-10 15:16 | P.CONS ---
History of Present Illness - Reason for Consult Consult date: 04/10/24 GI bleed Requesting physician: Yue Wiseman - Chief Complaint Black stool - History of Present Illness This a pleasant 79-year-old female who presented to the emergency department with complaints of black stool through the night. Gastroenterology was consulted for GI bleed. Patient was just discharged yesterday and was admitted in the hospital from 04 04-04 09 for COPD exacerbation. Past medical history includes COPD, anxiety and is a current everyday smoker. During the hospitalization patient was on prednisone she was discharged home on prednisone. During her hospitalization states she did not have a bowel movement but when she was discharged and was home last night she had 5-6 black stools. She denies any abdominal pain no nausea or vomiting. No fevers or chills. Denies any anticoagulation or NSAID use currently but reports that she was taking Aleve for many years however stopped 2 to 3 years ago as advised by her PCP. She has not had any previous upper or lower endoscopies. No history of peptic ulcer disease. Hemoglobin 9.2 which is stable for the patient as during the last admission she came in with admitting hemoglobin of 8.9 he had a drop down to 6.8 was transfused with a discharge hemoglobin of 9.0. She does have elevated BUN at 32 and did have an elevated BUN with a normal creatinine during her previous hospitalization. Positive occult stool. Review of Systems REVIEW OF SYSTEMS: CARDIOPULMONARY: No chest pain. Shortness of breath and cough. Gastrointestinal: No abdominal pain. No nausea or vomiting. No hematemesis, coffee-ground emesis. No rectal bleeding, black tarry stool. GENITOURINARY: No dysuria or hematuria. MUSCULOSKELETAL: Reports normal range of motion., Joint pain. SKIN: No rashes. No jaundice. ENDOCRINE: No chills, fevers. No excessive weight gain or loss. No polydipsia or polyuria. PSYCHIATRIC: Anxiety. NEUROLOGY: No change in mental status. Denies dizziness, headache. ENT: Vision unremarkable. CONSTITUTIONAL: No recent weight loss. No fever, chills, night sweats. Past Medical History Past Medical History: Cancer, COPD History of Any Multi-Drug Resistant Organisms: None Reported Past Surgical History: No Surgical Hx Reported Past Psychological History: Panic Disorder Smoking Status: Current every day smoker Past Alcohol Use History: None Reported Past Drug Use History: None Reported Medications and Allergies Home Medications Medication Instructions Recorded Confirmed Type ALPRAZolam [Xanax] 0.25 mg PO HS PRN 04/04/24 04/04/24 History Albuterol Inhaler [Ventolin Hfa 2 puff INHALATION RT-Q6H PRN 04/04/24 04/04/24 History Inhaler] Albuterol Nebulized [Ventolin 2.5 mg INHALATION RT-QID PRN 04/04/24 04/04/24 H istory Nebulized] Fluticasone/Umeclidin/Vilanter 1 puff INHALATION RT-DAILY 04/04/24 04/04/24 History [Trelegy Ellipta 100-62.5-25] Furosemide [Lasix] 20 mg PO DAILY #30 tab 04/08/24 Rx predniSONE [Deltasone] 40 mg PO DAILY 4 Days #8 tab 04/08/24 Rx Atorvastatin [Lipitor] 20 mg PO DAILY #30 tab 04/09/24 Rx Metoprolol Succinate (ER) [Toprol 25 mg PO DAILY #30 tab 04/09/24 Rx XL] Spironolactone [Aldactone] 25 mg PO DAILY #30 tab 04/09/24 Rx Allergies Allergy/AdvReac Type Severity Reaction Status Date / Time No Known Allergies Allergy Unverified 04/10/24 12:18 Physical Exam Vitals: Vital Signs Temp Pulse Resp BP Pulse Ox 04/10/24 12:16 98.3 F 88 20 104/50 99 Intake and Output 04/09/24 04/10/24 04/10/24 22:59 06:59 14:59 Other: Weight 43.091 kg General appearance: The patient is alert, oriented, appears in no acute dis tress. Oxygen per nasal cannula. HET: Head is normocephalic and atraumatic. Conjunctiva pink. Sclera anicteric. Neck: Supple without lymphadenopathy. Trachea midline. Heart: Regular. Lungs: Equal expansion, normal respiratory effort. Abdomen: Soft, nontender, nondistended. Skin: No rashes. No jaundice. Extremities: Normal skin color and turgor. No pedal edema. Neurological: No focal deficits. Alert and oriented x3. Results CBC & Chem 7: 04/10/24 13:05 04/10/24 13:05 Labs: Abnormal Lab Results - Last 24 Hours (Table) 0904/10/24 04/10/24 Range/Units 13:05 13:05 13:05 RBC 3.20 L (3.80-5.40) m/uL Hgb 9.2 L (11.4-16.0) gm/dL Hct 31.1 L (34.0-46.0) % MCHC 29.6 L (31.0-37.0) g/dL Lymphocytes # 0.8 L (1.0-4.8) k/uL Chloride 85 L (98-107) mmol/L Carbon Dioxide 52 H* (22-30) mmol/L BUN 32 H (7-17) mg/dL Total Protein 5.8 L (6.3-8.2) g/dL Albumin 3.4 L (3.5-5.0) g/dL Stool Occult Blood Positive H (Negative) Comments: CT abdomen pelvis without contrast reports small right and trace left pleural effusions with prominent patchy bibasilar opacities remain unchanged. Correlate as to etiology. Infectious or aspiration pneumonitis are the differential. Couple of nonobstructive left renal stones measuring up to 8 mm. There is mild bilateral pelviectasis which may be transient. No obstructing ureteral stones clearly identified. Appears to be diffuse wall thickening of small bowel specially in the left side of the abdomen. Consider an infectious or inflammatory enteritis. Limited by noncontrast technique and crowding of soft tissue structures in the abdomen pelvis. Mid to distal sigmoid diverticulosis no convincing findings of acute diverticulitis. Assessment and Plan (1) Melena Narrative/Plan: 79-year-old female recently hospitalized on steroids and discharged on prednisone presented back to the hospital after just going home yesterday with black tarry stools at least 5-6 are in the night. Patient was noted to be anemic during her last hospitalization with a drop down to 6.8 on her hemoglobin needing transfusion. Patient also had elevated BUN with a normal creatinine suggestive of possible upper GI bleed. Possible etiology peptic ulcer disease, AVM, gastritis, esophagitis or other possible etiologies. Recommend upper endoscopy. Current Visit: Yes Status: Acute Code(s): K92.1 - MELENA SNOMED Code(s): 3677303 (2) Anemia Current Visit: Yes Status: Acute Code(s): D64.9 - ANEMIA, UNSPECIFIED SNO MED Code(s): 077330992 (3) COPD (chronic obstructive pulmonary disease) Current Visit: Yes Status: Acute Code(s): J44.9 - CHRONIC OBSTRUCTIVE PULMONARY DISEASE, UNSPECIFIED SNOMED Code(s): 58928655 Plan: 1. Continue symptomatic and supportive care 2. Patient can have heart healthy diet, n.p.o. after midnight 3. Protonix 40 mg daily for GI prophylaxis 4. Avoid NSAIDs 5. Avoid anticoagulation 6. Daily CBC, transfuse for hemoglobin less than 7 7. Plan for upper endoscopy tomorrow Thank you for this consultation, we will continue to follow. Dr. Sunni Hairston I agree with the dictator's note, documented as a scribe by Morena Montalvo.
[2024-04-10] MEDS: ALPRAZolam 0.25 MG TAB PO STA (15:30)
[2024-04-10] MEDS: SODIUM CHLORIDE 0.9% 1,000 ML IV SCH (15:32)
[2024-04-10] MEDS: IPRATROPIUM-ALBUTEROL 3 ML NEB INHALATION SCH (16:00)
[2024-04-10 20:32] LABS: Glucose,Whole Blood 206 mg/dL (70-110)
[2024-04-10] MEDS: SYMBICORT 160-4.5 MCG INHALER INHALATION SCH (20:57)
--- NOTE | 2024-04-10 23:07 | HP ---
HISTORY AND PHYSICAL CHIEF COMPLAINT: Melenic stools and weakness. HISTORY OF PRESENT ILLNESS: This is a 79-year-old woman with a past medical history of multiple medical problems, who was recently admitted with COPD, CHF and as well as cardiomyopathy. The patient went home. The patient was complaining of weakness and the patient had explosive diarrhea, which was melenic this morning and the patient was admitted for further evaluation and treatment. There is no history of any fever, rigors, or chills. Hemoglobin was found to be 9.2. PAST MEDICAL HISTORY: COPD, CHF, cardiomyopathy. Rest of the history and rest of the chart is also reviewed. HOME MEDICATIONS: Prednisone. Rest of medications and chart was reviewed, not confirmed yet. ALLERGIES: None. FAMILY HISTORY: No history of heart disease or strokes in the family. SOCIAL HISTORY: Continued smoking. REVIEW OF SYSTEMS: Fourteen-point review is negative except as mentioned earlier. PHYSICAL EXAMINATION: VITAL SIGNS: Pulse is 88, blood pressure 104/52, respirations 20. HEENT: Conjunctivae pale. CARDIOVASCULAR: S1, S2. RESPIRATIONS: A few scattered rhonchi and crackles. ABDOMEN: Soft, nontender. The patient has some chronic abdominal pain in the right side. No guarding. No rigidity. No mass palpable. LEGS: No edema. NERVOUS SYSTEM: Nonfocal. LABORATORY DATA: WBC 7.8, hemoglobin 9.2. ASSESSMENT: 1. Upper gastrointestinal bleeding with acute blood loss anemia, rule out peptic ulcer disease. 2. Chronic obstructive pulmonary disease. 3. History of congestive heart failure. 4. History of nicotine dependence. 5. Cachexia. 6. History of recent diagnosis of malignant thymoma. RECOMMENDATIONS AND DISCUSSION: Recommend to continue current management and continue symptomatic treatment. Otherwise, avoid anticoagulation. The patient had a chest CTA recently. Recommend Gastroenterology evaluation for possible endoscopes, proton pump inhibitors. I would also recommend CT scan of the abdomen and pelvis to complete the workup also. Further recommendations to follow. MMODL / IJN: [id number] /
[2024-04-11 06:16] LABS: Glucose,Whole Blood 120 mg/dL (70-110)
[2024-04-11 08:15] LABS: ALT 13 U/L (4-34); AST 25 U/L (14-36); African American GFR (CKD) >90 (>60 ml/min/1.73 sqM); Albumin 3.1 g/dL (3.5-5.0); Alkaline Phosphatase 45 U/L (38-126); Blood Urea Nitrogen 27 mg/dL (7-17); Calcium 8.1 mg/dL (8.4-10.2); Chloride 92 mmol/L (98-107); Glucose 93 mg/dL (74-99); Non-African American GFR(CKD) >90 (>60 ml/min/1.73 sqM); Potassium 5.4 mmol/L (3.5-5.1); Sodium 135 mmol/L (137-145); Total Bilirubin 0.5 mg/dL (0.2-1.3); Total Protein 5.4 g/dL (6.3-8.2)
[2024-04-11] MEDS: IV FLUID CONTINUATION 900 ML IV ONE (08:19)
[2024-04-11] MEDS ORDERED: PROPOFOL 10 MG/ML 20 ML VIAL IV ONE (08:21)
[2024-04-11] MEDS ORDERED: LIDOCAINE HCL/PF 20 MG/ML 10 ML AMP ONE (08:21)
[2024-04-11 08:22] LABS: Anion Gap 4 mmol/L
[2024-04-11 08:32] LABS: Carbon Dioxide 39 mmol/L (22-30)
--- NOTE | 2024-04-11 08:40 | P.PCN ---
Date of Procedure: 04/11/24 Procedure(s) Performed: BRIEF HISTORY: Patient is a 79-year-old, pleasant, white female admitted to hospital with black tarry stools for the last 2 days duration. Hemoglobin was 6.8 g/dL and received 1 unit of PRBC transfusion.. Repeat CBC was 9.5 g/dL. She is scheduled for an upper endoscopy to evaluate further. PROCEDURE PERFORMED: Esophagogastroduodenoscopy with cautery using a gold probe. PREOPERATIVE DIAGNOSIS: Anemia and black tarry stools. IV sedation per anesthesia. PROCEDURE: After informed consent was obtained, the patient was brought into the endoscopy unit. IV sedation was administered by Anesthesia under continuous monitoring. Initially the Olympus GIF-140 video endoscope was inserted into the mouth. Esophagus intubated without any difficulty. It was gradually advanced into the stomach and duodenum and carefully examined. The bulb and the second part of the duodenum had 2 small nonbleeding arteriovenous malformations identified which were cauterized using a gold probe. l. The scope at this time was withdrawn to the stomach, adequately insufflated with air, and upon careful examination, mucosa of the antrum, body, cardia and the fundus appeared normal. The scope was then withdrawn into the esophagus. Mild hiatal hernia noted. The GE junction was located at 39 cm from the incisors. The esophagus appeared normal. There were no erosions or ulcerations seen and the patient tolerated the procedure well. IMPRESSION: 1. 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 2. Small hiatal hernia. RECOMMENDATIONS: The findings of this examination were discussed with the patient. Advance diet as tolerated. Monitor CBC daily. If the hemoglobin is stable she can be discharged home with an outpatient follow-up in 2 to 3 weeks.
[2024-04-11 08:50] LABS: Basophils % (A) 0 %; Eosinophils % (A) 0 %; HCT 28.3 % (34.0-46.0); HGB 8.6 gm/dL (11.4-16.0); Hypochromasia Marked; Lymphocytes # (A) 0.3 k/uL (1.0-4.8); Lymphocytes % (A) 4 %; MCH 29.4 pg (25.0-35.0); MCHC 30.4 g/dL (31.0-37.0); MCV 96.7 fL (80.0-100.0); Monocytes # (A) 0.3 k/uL (0-1.0); Monocytes % (A) 3 %; Neutrophils # (A) 6.9 k/uL (1.3-7.7); Neutrophils % (A) 92 %; Platelet Count 316 k/uL (150-450); RBC 2.92 m/uL (3.80-5.40); RDW 13.9 % (11.5-15.5); WBC 7.5 k/uL (3.8-10.6)
[2024-04-11] MEDS ORDERED: NON FORMULARY DRUG (Albuterol Inhaler 90 MCG Puff) INHALATION PRN (08:55)
[2024-04-11] MEDS ORDERED: ALBUTEROL NEBULIZED 2.5 MG/3 ML INHALATION PRN (08:55)
[2024-04-11] MEDS ORDERED: ALPRAZolam 0.25 MG TAB PO PRN (08:55)
[2024-04-11] MEDS: LORazepam 2 MG/ML INJ IV STA (09:35)
[2024-04-11] MEDS: SPIRONOLACTONE 25 MG TAB PO SCH (09:37)
[2024-04-11] MEDS: ATORVASTATIN 20 MG TAB PO SCH (09:37)
[2024-04-11] MEDS: FUROSEMIDE 20 MG TAB PO SCH (09:37)
[2024-04-11] MEDS: METOPROLOL SUCCINATE (ER) 25 MG TAB.ER.24H PO SCH (09:37)
[2024-04-11 11:51] VITALS: BMI 18.1
[2024-04-11 12:01] LABS: Glucose,Whole Blood 283 mg/dL (70-110)
[2024-04-11] MEDS: ALPRAZolam 0.25 MG TAB PO STA (12:02)
[2024-04-11] MEDS ORDERED: DEXTROSE 50% SYRINGE 50 ML IVP PRN ×2 (12:38)
--- NOTE | 2024-04-11 15:46 | PN ---
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 There is no active bleeding. Hemoglobin currently is 8.6. No chest pain. No palpitation. REVIEW OF SYSTEMS: A 14-point review is negative except as mentioned earlier. CURRENT MEDICATIONS: Reviewed. OBJECTIVE: VITAL SIGNS: Pulse is 105, blood pressure 130/72, respirations 20. HEENT: Conjunctiva pale. CHEST: A few scattered rhonchi and crackles. Breathing efforts increased. ABDOMEN: Soft, nontender. LEGS: No edema. LABORATORY DATA: Reviewed. Hemoglobin 8.6. ASSESSMENT: 1. Upper gastrointestinal bleeding with acute blood loss anemia, status post EGD showing arteriovenous malformation in the duodenum, status post cautery. 2. Chronic obstructive pulmonary disease acute exacerbation. 3. Congestive heart failure. 4. History of nicotine dependence. 5. Cachexia. 6. History of recent diagnosis of malignant thymoma. RECOMMENDATIONS: Recommend to continue current medications and continue symptomatic treatment. Otherwise, at this time, monitor hemoglobin closely. CT scan reviewed. Otherwise, prognosis remain guarded. Continue with IV steroids. I will repeat labs. Sugars are also elevated at this time. I would recommend a small dose of Lantus also to be added. MMODL / IJN: [id number] /
[2024-04-11 16:32] LABS: Glucose,Whole Blood 119 mg/dL (70-110)
[2024-04-11] MEDS: INSULIN ASPART (NovoLOG) 100 UNIT/ML VIAL SQ SCH (16:32)
[2024-04-11 19:50] LABS: Glucose,Whole Blood 185 mg/dL (70-110)
[2024-04-11] MEDS: ALPRAZolam 0.25 MG TAB PO PRN (21:51)
[2024-04-11] MEDS: INSULIN DETEMIR (LEVEMIR) 100 UNIT/ML SYR SQ SCH (21:51)
[2024-04-11] MEDS: TEMAZEPAM 15 MG CAP PO PRN (23:40)
[2024-04-12 06:10] LABS: Glucose,Whole Blood 122 mg/dL (70-110)
[2024-04-12 06:42] LABS: Basophils % (A) 0 %; Eosinophils % (A) 0 %; HCT 27.7 % (34.0-46.0); HGB 8.1 gm/dL (11.4-16.0); Hypochromasia Marked; Lymphocytes # (A) 0.3 k/uL (1.0-4.8); Lymphocytes % (A) 3 %; MCH 28.6 pg (25.0-35.0); MCHC 29.1 g/dL (31.0-37.0); MCV 98.4 fL (80.0-100.0); Mean Platelet Volume 7.3; Monocytes # (A) 0.3 k/uL (0-1.0); Monocytes % (A) 4 %; Neutrophils # (A) 7.4 k/uL (1.3-7.7); Neutrophils % (A) 92 %; Platelet Count 359 k/uL (150-450); RBC 2.82 m/uL (3.80-5.40); RDW 13.5 % (11.5-15.5); WBC 8.1 k/uL (3.8-10.6)
[2024-04-12 07:01] LABS: African American GFR (CKD) >90 (>60 ml/min/1.73 sqM); Blood Urea Nitrogen 31 mg/dL (7-17); Calcium 8.6 mg/dL (8.4-10.2); Chloride 88 mmol/L (98-107); Glucose 96 mg/dL (74-99); Magnesium 2.3 mg/dL (1.6-2.3); Non-African American GFR(CKD) 90 (>60 ml/min/1.73 sqM); Potassium 5.2 mmol/L (3.5-5.1); Sodium 133 mmol/L (137-145)
[2024-04-12 07:11] LABS: Anion Gap -2 mmol/L
[2024-04-12 07:33] LABS: Carbon Dioxide 47 mmol/L (22-30)
[2024-04-12] MEDS ORDERED: SPIRONOLACTONE 25 MG TAB PO SCH (09:00)
[2024-04-12] MEDS ORDERED: ATORVASTATIN 20 MG TAB PO SCH (09:00)
[2024-04-12] MEDS ORDERED: FUROSEMIDE 20 MG TAB PO SCH (09:00)
[2024-04-12] MEDS ORDERED: METOPROLOL SUCCINATE (ER) 25 MG TAB.ER.24H PO SCH (09:00)
[2024-04-12 11:47] LABS: Glucose,Whole Blood 178 mg/dL (70-110)
[2024-04-12 17:01] LABS: Glucose,Whole Blood 156 mg/dL (70-110)
[2024-04-12 20:03] LABS: Glucose,Whole Blood 126 mg/dL (70-110)
--- NOTE | 2024-04-12 20:55 | PN ---
PROGRESS NOTE DATE OF SERVICE: 04/12/2024 SUBJECTIVE: This is a 79-year-old woman who was admitted with upper GI bleeding, had EGD and as well as arteriovenous malformation in the duodenum cauterized by Gastroenterology. The patient is still complaining of shortness of breath and as well as weakness. Hemoglobin is 8.1 today, yesterday was 8.6, and CO2 was 47. The patient is apparently from [place] and the patient has scheduled an appointment in [place] in the near future for evaluation of the thymoma according to the family. PAST MEDICAL HISTORY: Reviewed. REVIEW OF SYSTEMS: A 14-point review is negative except as mentioned earlier. CURRENT MEDICATIONS: Reviewed include DuoNeb, dose and rest of medications noted. PHYSICAL EXAMINATION: VITAL SIGNS: Pulse is 90, blood pressure 130/64, respirations 20. HEENT: Conjunctivae pale. Oral mucosa moist. CARDIOVASCULAR: S1, S2. RESPIRATIONS: Bilateral scattered rhonchi and crackles. ABDOMEN: Soft. NERVOUS SYSTEM: Diffusely weak. LABORATORY DATA: Hemoglobin 8.1, sodium 130, potassium 5.2. ASSESSMENT: 1. Upper GI bleeding with acute blood loss anemia, status post EGD showing arteriovenous malformation in the duodenum, status post cautery. 2. Severe weakness. 3. Chronic obstructive pulmonary disease acute exacerbation. 4. Congestive heart failure. 5. History of nicotine dependence. 6. Cachexia. 7. History of recent diagnosis of malignant thymoma. RECOMMENDATIONS: Recommend to continue current management and continue symptomatic treatment. Recommend repeat labs in the morning. If hemoglobin is dropping further, I would recommend transfusion. Otherwise, monitor blood sugars closely. Repeat labs. The abdomen and pelvis CAT scan showed only some mild pleural effusions. We will continue to monitor. Overall prognosis extremely guarded, which I discussed at length with the family at the bedside and further recommendations to follow. The patient is not on any antibiotic at this time. I recommend a ProCal evaluation. MMODL / IJN: [id number] /
[2024-04-13 05:57] LABS: Glucose,Whole Blood 113 mg/dL (70-110)
[2024-04-13 09:31] LABS: African American GFR (CKD) >90 (>60 ml/min/1.73 sqM); Blood Urea Nitrogen 37 mg/dL (7-17); Calcium 8.6 mg/dL (8.4-10.2); Chloride 90 mmol/L (98-107); Glucose 143 mg/dL (74-99); Non-African American GFR(CKD) >90 (>60 ml/min/1.73 sqM); Sodium 134 mmol/L (137-145)
[2024-04-13 09:37] LABS: Anion Gap 0 mmol/L
[2024-04-13 09:47] LABS: Basophils % (A) 0 %; Eosinophils % (A) 0 %; HCT 28.7 % (34.0-46.0); HGB 8.7 gm/dL (11.4-16.0); Hypochromasia Marked; Lymphocytes # (A) 0.5 k/uL (1.0-4.8); Lymphocytes % (A) 5 %; MCH 29.3 pg (25.0-35.0); MCHC 30.2 g/dL (31.0-37.0); MCV 97.1 fL (80.0-100.0); Mean Platelet Volume 8.4; Monocytes # (A) 0.4 k/uL (0-1.0); Monocytes % (A) 4 %; Neutrophils # (A) 8.3 k/uL (1.3-7.7); Neutrophils % (A) 90 %; Platelet Count 333 k/uL (150-450); RBC 2.96 m/uL (3.80-5.40); RDW 13.6 % (11.5-15.5); WBC 9.3 k/uL (3.8-10.6)
[2024-04-13 10:18] LABS: Carbon Dioxide 44 mmol/L (22-30)
[2024-04-13 11:38] LABS: Glucose,Whole Blood 242 mg/dL (70-110)
[2024-04-13] MEDS: SUCRALFATE 1 GM TAB PO SCH (12:41)
[2024-04-13 16:47] LABS: Glucose,Whole Blood 191 mg/dL (70-110)
[2024-04-13 20:53] LABS: Glucose,Whole Blood 264 mg/dL (70-110)
[2024-04-14 05:49] LABS: Glucose,Whole Blood 225 mg/dL (70-110)
[2024-04-14 07:44] LABS: Basophils % (A) 0 %; Eosinophils % (A) 0 %; HCT 29.1 % (34.0-46.0); HGB 8.5 gm/dL (11.4-16.0); Hypochromasia Marked; Lymphocytes # (A) 0.2 k/uL (1.0-4.8); Lymphocytes % (A) 3 %; MCH 28.9 pg (25.0-35.0); MCHC 29.2 g/dL (31.0-37.0); MCV 99.1 fL (80.0-100.0); Mean Platelet Volume 8.3; Monocytes # (A) 0.5 k/uL (0-1.0); Monocytes % (A) 6 %; Neutrophils # (A) 7.6 k/uL (1.3-7.7); Neutrophils % (A) 90 %; Platelet Count 323 k/uL (150-450); RBC 2.94 m/uL (3.80-5.40); RDW 13.6 % (11.5-15.5); WBC 8.5 k/uL (3.8-10.6)
[2024-04-14 08:01] LABS: African American GFR (CKD) >90 (>60 ml/min/1.73 sqM); Blood Urea Nitrogen 38 mg/dL (7-17); Calcium 8.5 mg/dL (8.4-10.2); Chloride 87 mmol/L (98-107); Glucose 135 mg/dL (74-99); Magnesium 2.3 mg/dL (1.6-2.3); Non-African American GFR(CKD) >90 (>60 ml/min/1.73 sqM); Potassium 4.5 mmol/L (3.5-5.1); Sodium 136 mmol/L (137-145)
[2024-04-14 08:48] VITALS: RESP 16
[2024-04-14 09:43] LABS: Anion Gap 5 mmol/L
[2024-04-14 09:48] LABS: Carbon Dioxide 44 mmol/L (22-30)
[2024-04-14 11:38] LABS: Glucose,Whole Blood 171 mg/dL (70-110)
--- NOTE | 2024-04-14 12:03 | CDI ---
Documentation Clarification Form Date: 04/14/2024 10:08:28 AM From: Esther Haas RN CCDS Phone: [phone] Admit Date: 04/11/2024 01:54:00 PM Patient Name: Swetha Coffman Visit Number: [id number] Discharge Date: ATTENTION: The Clinical Documentation Specialists (CDI) and [facility] Coding Staff appreciate your assistance in clarifying documentation. Please respond to the clarification below the line at the bottom and electronically sign. The CDI & [facility] Coding staff will review the response and follow-up if needed. Please note: Queries are made part of the Legal Health Record. If you have any questions, please contact the author of this message via ITS. Doctor: Yue Wiseman The patient is described as Cachexia in the HP, 04/10. Based on this information and the findings below, is there an additional diagnosis that is clinically appropriate for this patient? History/Risk Factors: 79 year old female presents to the ED with weakness and explosive diarrhea which was meenic this morning and was admitted for further evaluation and treatment. Medical History: Recently admitted with COPD and CHF. Cancer, COPD Clinical Indicators: Current BMI: 18.8kg RD Consult Assessment, 04/11: NPO for procedure will advance to regular diet. Weight 45.1kg Height 5ft 2 in BMI 18.1, Body Mass Index Classification Underweight. Needs in Kcals: Energy formula for Estimated Nutritional needs: 30- 35Kcals/Kg. Nutritional Needs Energy Needs Kcal 7136-8234 Estimated Protein needs: Estimated protein Range (grams/kg) 1.2 1.5. Estimated Protein Needs (grams/day) 54-67. Estimated Fluid Needs: Fluid formula 1ml/Kcal Estimated Fluid Needs (mls/day) 9998-1460 Inadequate energy intake: Related to poor appetite. Evidenced by <25% of EEN being Consumed. Treatment: Nutrition consult and assessment above. Monitor po intake and supplement intake Supplements: Oral nutritional supplement Ensure Enlive TID, Regular diet Is there an additional diagnosis that is clinically appropriate for this patient? [ ] Moderate Protein-Calorie Malnutrition [ ] Severe Protein-Calorie Malnutrition [ ] No additional diagnosis/Not clinically significant [ ] Other condition, please specify [ ] Unable to Determine (Template Last Revised: January 2023) none MTDD
--- NOTE | 2024-04-14 12:21 | PN ---
PROGRESS NOTE DATE OF SERVICE: 04/13/2024 SUBJECTIVE: This is a 79-year-old woman who was admitted with upper GI bleeding, had duodenal AV malformations. The hemoglobin is 8.7 today, compared to 8.1 yesterday. No chest pain. No palpitation. PHYSICAL EXAMINATION: VITAL SIGNS: Pulse 77, blood pressure ntd, respiratory rate 19. CHEST: Few scattered rhonchi. No crackles. ABDOMEN: Soft. HEENT: Conjunctivae pale. NERVOUS SYSTEM: Diffusely weak. LABORATORY DATA: CO2 is 44. ASSESSMENT: 1. Upper gastrointestinal bleeding with acute blood loss anemia status post EGD showing AV malformation in the duodenum status post cautery. 2. Severe weakness. 3. Chronic obstructive pulmonary disease with acute exacerbation. 4. Congestive heart failure history. 5. History of nicotine dependence. 6. Cachexia. 7. History of recent diagnosis of malignant thymoma closely follow with multiple consultants. The hemoglobin is stable. The patient may be able to be discharged in the next 24 hours. MMODL / IJN: [id number] / [id number]
[2024-04-14 12:34] VITALS: BP 113/68; PULSE 81; TEMP 98.2
--- NOTE | 2024-04-15 10:21 | P.DS ---
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 Patient will follow-up with Dr. Henry Wiseman in the outpatient setting while here prior to returning to her primary care provider in [place] upon discharge. Patient is to continue with current medications and close outpatient follow-up with pulmonary and cardiology as scheduled. Total time taken is greater than 35 minutes. Hospital course This is a 79-year-old female who was recently admitted with increasing shortness of breath with COPD exacerbation. Patient also had low hemoglobin with concerns of upper GI bleeding evaluated by GI underwent EGD showing 2 AV malformation nonbleeding ulcers that were cauterized in the duodenum. Hemoglobin is stable at 8.5 with no active bleeding noted and patient reports to feeling improved. Patient lives in [place] although stays here in [place] through the summer and plans to stay here until April when she returns home. Patient to follow- up with primary care provider in this area to establish along with GI and pulmonary outpatient. Please refer to other consultation notes for further HPI. Currently no reports of chest pain, shortness of breath, or palpitations. Patient is afebrile. No reports of nausea or vomiting and patient is tolerating diet. Patient will be discharged home today. Guarded prognosis and high risk for readmission given patient's significant comorbidities. Physical exam: Gen: This is a 79-year-old female who is awake, alert and oriented x 3, thin build, elderly appearing, cachectic, ill-appearing HEENT: Head is atraumatic, normocephalic. Pupils equal, round. Sclerae is anicteric. NECK: Supple. No JVD. No lymphadenopathy. No thyromegaly. LUNGS: Diminished breath sounds bilaterally with some coarse scattered rhonchi and faint expiratory wheezes noted. No intercostal retractions. HEART: S1, S2 are muffled ABDOMEN: Soft. Thin bowel sounds are present. No masses. No tenderness. EXTREMITIES: No pedal edema. No calf tenderness. NEUROLOGICAL: Patient is awake, alert and oriented x3. Cranial nerves 2 through 12 are grossly intact. Please refer to medication reconciliation sheet for a list of medications. The impression and plan of care has been dictated by Deedee Bingham, Nurse Practitioner as directed. Dr. Bowen MD I have performed a history and examination and MDM of this patient, discussed the same with the dictator, and agree with the dictator's assessment and plan as written ,documented as a scribe. Based on total visit time, I have performed more than 50% of the visit. Patient Condition at Discharge: Stable Plan - Discharge Summary Discharge Rx Participant: No New Discharge Prescriptions: New Pantoprazole [Protonix] 40 mg PO DAILY 30 Days #30 tab Budesonide-Formot 160-4.5 Mcg [Symbicort 160-4.5 Mcg Inhaler] 2 puff INHALATION RT-BID 30 Days #1 each Sucralfate [Carafate] 1 gm PO ACHS 30 Days #120 tab Ipratropium-Albuterol Nebulize [Duoneb 0.5 mg-3 mg/3 ml Soln] 3 ml INHALATION RT-Q6H #100 each predniSONE See Taper PO DIRECTED #30 tab Continue Albuterol Nebulized [Ventolin Nebulized] 2.5 mg INHALATION RT-QID PRN PRN Reason: Shortness Of Breath Or Wheezing Albuterol Inhaler [Ventolin Hfa Inhaler] 2 puff INHALATION RT-Q6H PRN PRN Reason: Wheezing Atorvastatin [Lipitor] 20 mg PO DAILY #30 tab Fluticasone/Umeclidin/Vilanter [Trelegy Ellipta 100-62.5-25] 1 puff INHALATION RT-DAILY ALPRAZolam [Xanax] 0.25 mg PO HS PRN PRN Reason: Anxiety Furosemide [Lasix] 20 mg PO DAILY #30 tab Spironolactone [Aldactone] 25 mg PO DAILY #30 tab Metoprolol Succinate (ER) [Toprol XL] 25 mg PO DAILY #30 tab Discontinued predniSONE [Deltasone] 40 mg PO DAILY 4 Days #8 tab Discharge Medication List ALPRAZolam [Xanax] 0.25 mg PO HS PRN 04/04/24 [History] Albuterol Inhaler [Ventolin Hfa Inhaler] 2 puff INHALATION RT-Q6H PRN 04/04/24 [History] Albuterol Nebulized [Ventolin Nebulized] 2.5 mg INHALATION RT-QID PRN 04/04/24 [History] Fluticasone/Umeclidin/Vilanter [Trelegy Ellipta 100-62.5-25] 1 puff INHALATION RT-DAILY 04/04/24 [History] Furosemide [Lasix] 20 mg PO DAILY #30 tab 04/08/24 [Rx] Atorvastatin [Lipitor] 20 mg PO DAILY #30 tab 04/09/24 [Rx] Metoprolol Succinate (ER) [Toprol XL] 25 mg PO DAILY #30 tab 04/09/24 [Rx] Spironolactone [Aldactone] 25 mg PO DAILY #30 tab 04/09/24 [Rx] Budesonide-Formot 160-4.5 Mcg [Symbicort 160-4.5 Mcg Inhaler] 2 puff INHALATION RT-BID 30 Days #1 each 04/14/24 [Rx] Ipratropium-Albuterol Nebulize [Duoneb 0.5 mg-3 mg/3 ml Soln] 3 ml INHALATION RT-Q6H #100 each 04/14/24 [Rx] Pantoprazole [Protonix] 40 mg PO DAILY 30 Days #30 tab 04/14/24 [Rx] Sucralfate [Carafate] 1 gm PO ACHS 30 Days #120 tab 04/14/24 [Rx] predniSONE See Taper PO DIRECTED #30 tab 04/14/24 [Rx] Follow up Appointment(s)/Referral(s): Tracy Hairston MD [STAFF PHYSICIAN] - 04/22/24 9:30 am Lakshmi Whitney MD [STAFF PHYSICIAN] - 1 Week (primary care pcp in [facility]. unable to get appointment until end of april. get labs done here and follow up with pcp) Cody Johnson MD [Primary Care Provider] - 1-2 days ([place] pcp ) Ambulatory/Diagnostic Orders: Complete Blood Count w/diff [LAB.AMB] Location: None Selected Activity/Diet/Wound Care/Special Instructions: Activity limited until follow-up Follow-up with primary care provider on discharge Follow-up with pulmonary outpatient Continue taking medications as prescribed Repeat labs in the next 1 week to monitor CBC Discharge Disposition: HOME SELF-CARE
== END 2024-04-14 15:19 | disposition home or self-care (01) | DRG 378 ==
LOC: EC 12:10 → 3SCARD 14:37 → OBSVTOIN 04-11 13:54
PROVIDERS: ADMIT Hospitalist; ATTEND Hospitalist
PROC: 0D598ZZ Destruction of Duodenum, Via Natural or Artificial Opening Endoscopic (ICD-10-PCS; principal; 2024-04-11 07:30)
DX: K31.811 Angiodysplasia of stomach and duodenum with bleeding (principal); D62 Acute posthemorrhagic anemia; J44.1 Chronic obstructive pulmonary disease with (acute) exacerbation; E44.0 Moderate protein-calorie malnutrition; I42.9 Cardiomyopathy, unspecified; Z68.1 Body mass index [BMI] 19.9 or less, adult; I50.9 Heart failure, unspecified; K44.9 Diaphragmatic hernia without obstruction or gangrene; F17.210 Nicotine dependence, cigarettes, uncomplicated; Z79.899 Other long term (current) drug therapy; Z79.51 Long term (current) use of inhaled steroids; Z85.238 Personal history of other malignant neoplasm of thymus
CPT/HCPCS: 36415; 43255; 71045; 74176; 80048; 80053; 82272; 83036; 83735; 84145; 85025; 85730; 86850; 86900; 86901; 93005; 94640; 94760; 96361; 96374; 96375; 99291

== ENCOUNTER → 2024-04-22 | Outpatient (CLI) | payer MEDICARE, BC ==
[2024-04-22 15:08] LABS: Basophils # (A) 0.01 X 10*3/uL (0.00-0.10); Basophils % (A) 0.1 %; Eosinophils # (A) 0.02 X 10*3/uL (0.04-0.35); Eosinophils % (A) 0.2 %; HGB 7.9 g/dL (12.0-15.0); Lymphocytes # (A) 0.45 X 10*3/uL (0.90-5.00); Lymphocytes % (A) 4.6 %; MCH 29.5 pg (27.0-32.0); MCHC 29.3 g/dL (32.0-37.0); MCV 100.7 FL (80.0-97.0); Mean Platelet Volume 10.7 FL (9.5-12.2); Monocytes # (A) 0.55 X 10*3/uL (0.20-1.00); Monocytes % (A) 5.7 %; NRBC Per 100 WBC 0 X 10*3/uL (0.00-0.01); Neutrophils # (A) 8.59 X 10*3/uL (1.80-7.70); Neutrophils % (A) 88.6 %; Platelet Count 242 X 10*3/uL (140-440); RBC 2.68 X 10*6/uL (4.10-5.20)
== END | disposition home or self-care (01) ==
LOC: LABWHC1 09:24
PROVIDERS: ATTEND Registered Nurse
DX: D64.9 Anemia, unspecified (principal)
CPT/HCPCS: 36415; 85025

== ENCOUNTER 2024-12-24 15:51 | Emergency (ER) | payer MEDICARE, BC ==
--- NOTE | 2024-12-24 16:04 | ED ---
Fall HPI - General Stated Complaint: fall Time Seen by Provider: 12/24/24 15:52 - History of Present Illness Initial Comments: 79-year-old female past medical history of COPD on 2.5 L home O2 who presents to the ER after trip and fall. Patient was ambulating when she lost her balance and fell onto her left side. Reporting to left hip pain. Denies hitting her head. No loss of consciousness. No neck or back pain. Mild tenderness in her left bicep but continues to have full normal range of motion. She was given 2 mg of morphine from EMS. He denies chest pain or shortness of breath. Patient is not on any blood thinners. No alleviating, precipitating modifying factors - Related Data Home Medications Medication Instructions Recorded Confirmed ALPRAZolam [Xanax] 0.25 mg PO HS PRN 04/04/24 04/10/24 Albuterol Inhaler [Ventolin Hfa 2 puff INHALATION RT-Q6H PRN 04/04/24 04/10/24 Inhaler] Albuterol Nebulized [Ventolin 2.5 mg INHALATION RT-QID PRN 04/04/24 04/10/24 Nebulized] Fluticasone/Umeclidin/Vilanter 1 puff INHALATION RT-DAILY 04/04/24 04/10/24 [Trelegy Ellipta 100-62.5-25] Previous Rx's Medication Instructions Recorded Furosemide [Lasix] 20 mg PO DAILY #30 tab 04/08/24 Atorvastatin [Lipitor] 20 mg PO DAILY #30 tab 04/09/24 Metoprolol Succinate (ER) [Toprol 25 mg PO DAILY #30 tab 04/09/24 XL] Spironolactone [Aldactone] 25 mg PO DAILY #30 tab 04/09/24 Budesonide-Formot 160-4.5 Mcg 2 puff INHALATION RT-BID 30 Days 04/14/24 [Symbicort 160-4.5 Mcg Inhaler] #1 each Ipratropium-Albuterol Nebulize 3 ml INHALATION RT-Q6H #100 each 04/14/24 [Duoneb 0.5 mg-3 mg/3 ml Soln] Pantoprazole [Protonix] 40 mg PO DAILY 30 Days #30 tab 04/14/24 Sucralfate [Carafate] 1 gm PO ACHS 30 Days #120 tab 04/14/24 predniSONE See Taper PO DIRECTED #30 tab 04/14/24 HYDROcodone/APAP 5-325MG [[place] 1 tab PO Q4HR PRN 3 Days #18 tab 12/24/24 5-325] Allergies Allergy/AdvReac Type Severity Reaction Status Date / Time No Known Allergies Allergy Verified 12/24/24 16:12 Review of Systems ROS Statement: Those systems with pertinent positive or pertinent negative responses have been documented in the HPI. ROS Other: All systems not noted in ROS Statement are negative. Past Medical History Past Medical History: Cancer, Heart Failure, COPD Additional Past Medical History / Comment(s): Skin cancer with removal, wears 3L NC at home related to COPD, current smoker, thymoma, CHF diagnosed last week on previous admission. History of Any Multi-Drug Resistant Organisms: None Reported Past Surgical History: No Surgical Hx Reported Additional Past Surgical History / Comment(s): Removal of skin cancer on nose about 1 year ago Past Anesthesia/Blood Transfusion Reactions: No Reported Reaction Past Psychological History: Anxiety, Panic Disorder Smoking Status: Former smoker Past Alcohol Use History: None Reported Past Drug Use History: None Reported Additional Drug Use History / Comment(s): Patient states she has stopped smoking. She hasn't smoked for 8 days. - Past Family History Mother Family Medical History: COPD Father Additional Family Medical History / Comment(s): ETOH General Exam General appearance: alert, in no apparent distress Head exam: Present: atraumatic, normocephalic, normal inspection Eye exam: Present: normal appearance, PERRL, EOMI. Absent: scleral icterus, conjunctival injection, periorbital swelling ENT exam: Present: normal exam, mucous membranes moist Neck exam: Present: normal inspection. Absent: tenderness, meningismus, lymphadenopathy Respiratory exam: Present: normal lung sounds bilaterally. Absent: respiratory distress, wheezes, rales, rhonchi, stridor Cardiovascular Exam: Present: regular rate, normal rhythm, normal heart sounds. Absent: systolic murmur, diastolic murmur, rubs, gallop, clicks GI/Abdominal exam: Present: soft, normal bowel sounds. Absent: distended, tenderness, guarding, rebound, rigid Extremities exam: Present: full ROM, tenderness (To palpation of the left hip), normal capillary refill. Absent: pedal edema, joint swelling, calf tenderness Back exam: Present: normal inspection Neurological exam: Present: alert, oriented X3, CN II-XII intact Psychiatric exam: Present: normal affect, normal mood Skin exam: Present: warm, dry, intact, normal color. Absent: rash Course Vital Signs 12/24/24 12/24/24 12/24/24 16:21 19:00 19:55 Temperature 98.4 F Pulse Rate 83 88 Respiratory 20 20 Rate Blood Pressure 159/64 144/56 O2 Sat by Pulse 99 97 98 Oximetry Medical Decision Making - Medical Decision Making Was pt. sent in by a medical professional or institution (, PA, CORPORATE BUYER, urgent care, hospital, or residential...) When possible be specific @ -No Did you speak to anyone other than the patient for history (EMS, parent, family, police, friend...)? What history was obtained from this source @ -Spoke with EMS for history Did you review nursing and triage notes (agree or disagree)? Why? @ -I reviewed and agree with nursing and triage notes Were old charts reviewed (outside hosp., previous admission, EMS record, old EKG, old radiological studies, urgent care reports/EKG's, residential records)? Report findings @ -No old charts were reviewed Differential Diagnosis (chest pain, altered mental status, abdominal pain women, abdominal pain men, vaginal bleeding, weakness, fever, dyspnea, syncope, headache, dizziness, GI bleed, back pain, seizure, CVA, palpatations, mental health, musculoskeletal)? @ -Differential Musculoskeletal Muscular strain, contusion, ligament sprain, fracture, arthritis, septic arthritis, bursitis, cellulitis, muscle spasm, nerve compression, DVT, arterial occlusion, herpes zoster, electrolyte abnormality, tumor.... This is not meant to be in all inclusive list EKG interpreted by me (3pts min.). @ -Not done X-rays interpreted by me (1pt min.). @ -Yes which demonstrates pubic rami fracture CT interpreted by me (1pt min.). @ -Yes which demonstrates pubic rami fracture U/S interpreted by me (1pt. min.). @ -None done What testing was considered but not performed or refused? (CT, X-rays, U/S, labs)? Why? @ -None What meds were considered but not given or refused? Why? @ -None Did you discuss the management of the patient with other professionals (professionals i.e. , PA, CORPORATE BUYER, lab, RT, psych nurse, social work manager, ward maid, teacher, peace officer, shelter case manager)? Give summary @ -No Was smoking cessation discussed for >3mins.? @ -No Was critical care preformed (if so, how long)? @ -No Were there social determinants of health that impacted care today? How? (Homelessness, low income, unemployed, alcoholism, drug addiction, transp ortation, low edu. Level, literacy, decrease access to med. care, correction, rehab)? @ -No Was there de-escalation of care discussed even if they declined (Discuss DNR or withdrawal of care, Hospice)? DNR status @ -No What co-morbidities impacted this encounter? (DM, HTN, Smoking, COPD, CAD, Cancer, CVA, ARF, Chemo, Hep., AIDS, mental health diagnosis, sleep apnea, morbid obesity)? @ -COPD Was patient admitted / discharged? Hospital course, mention meds given and route, prescriptions, significant lab abnormalities, going to OR and other pertinent info. @ -Upon arrival patient seen and evaluated in bed 4. Thorough history and physical exam was performed. Patient administered pain medications. X-ray performed which demonstrates possible old pubic rami fracture. I did follow this up with a CT as patient has active pain and this demonstrates left pubic rami fracture. Discussed the case with the patient. Did offer admission for pain control however patient adamantly wants to go home. She is able to get up around the department. I will provide her with a prescription for pain medications. Patient is instructed to follow-up with the orthopedic doctor within the next week. Take pain medications as needed. Return for any new or worsening symptoms. Patient agreeable plan she was discharged in stable condition Undiagnosed new problem with uncertain prognosis? @ -No Drug Therapy requiring intensive monitoring for toxicity (Heparin, Nitro, Insulin, Cardizem)? @ -No Were any procedures done? @ -No Diagnosis/symptom? @ -Acute fall, acute left hip pain, left pubic rami fracture Acute, or Chronic, or Acute on Chronic? @ -Acute Uncomplicated (without systemic symptoms) or Complicated (systemic symptoms)? @ -Uncomplicated Side effects of treatment? @ -No Exacerbation, Progression, or Severe Exacerbation? @ -No Poses a threat to life or bodily function? How? (Chest pain, USA, MT, pneumonia, PE, COPD, DKA, ARF, appy, cholecystitis, CVA, Diverticulitis, Homicidal, Suic idal, threat to staff... and all critical care pts) @ -No Disposition Clinical Impression: Fall, Pubic ramus fracture Disposition: HOME SELF-CARE Condition: Stable Instructions (If sedation given, give patient instructions): Pelvic Fracture (ED) Additional Instructions: You can ambulate on the extremity as tolerated. Take the pain medication as needed. Follow-up with your doctor and return for any new or worsening symptoms Prescriptions: HYDROcodone/APAP 5-325MG [[place] 5-325] 1 tab PO Q4HR PRN 3 Days #18 tab PRN Reason: Severe Breakthrough Pain Is patient prescribed a controlled substance at d/c from ED?: Yes When asked, does pt state using other controlled substances?: No If prescribed controlled substance>3 days was MAPS reviewed?: Prescribed <3 Days If opioid is for acute pain is fill amount 7 days or less?: Yes If Rx opioid, was Start Talking consent form obtained?: Yes Referrals: Cody Johnson MD [Primary Care Provider] - 1-2 days Time of Disposition: 18:35
--- NOTE | 2024-12-24 16:20 | XR ---
EXAMINATION TYPE: XR Hip LT and AP Pelvis DATE OF EXAM: 12/24/2024 4:15 PM COMPARISON: None. CLINICAL INDICATION: Female, 79 years old with history of hip pain, pain TECHNIQUE: 3 view(s) obtained. FINDINGS: 2 views of the left hip were obtained. AP view of the pelvis is obtained. There is narrowing of the joint spaces of bilateral hips. Symphysis pubis and sacroiliac joints are n ormal. The pubic ramus on the left has a linear opacity may be an old fracture. Displaced fracture is not identified. Correlate with location of the patient's pain Left hip femoral head articulates with the acetabulum. No acute fracture or dislocation of the hip is evident. IMPRESSION: 1. May be an old fracture of the left pubic ramus. Correlate with location of patient's pain. 2. No acute osseous abnormality of the left hip is identified. [facility], , 12/24/2024 4:18 PM
[2024-12-24 16:30] VITALS: RESP 20; TEMP 98.4
[2024-12-24] MEDS: MORPHINE SULFATE 2 MG/ML SYRINGE IVP ONE ×2 (16:30→19:15)
--- NOTE | 2024-12-24 17:47 | CT ---
EXAMINATION TYPE: CT pelvis wo con DATE OF EXAM: 12/24/2024 5:00 PM COMPARISON: Left hip same date CLINICAL INDICATION: Female, 79 years old with history of left hip pain, can not ambulate, lateral fe mur, left hip pain, inability to ambulate post fall TECHNIQUE: Axial images were obtained from above the iliac crests to the pubic rami in the axial plan e at 5 mm thick sections. Reconstructed images are reviewed on the computer in the coronal plane. CONTRAST: mL of . Study performed without Oral Contrast DLP: 214.3 mGycm, Automated exposure control for dose reduction was used. FINDINGS: Limited CT sections through the lower abdomen. Portion of the gallbladder visualized is unremarkable. There is a couple of nonobstructing punctate renal stones on the right. No hydronephrosis is evident no hydroureter is evident. Vascular calcifications in the distal aorta extending into the iliac vess els. Portion of the liver within the [id number] is normal. CT PELVIS: Loops of bowel within the abdomen and pelvis are normal. Diverticular changes are noted in the sigmo id colon. No adjacent laboratory changes suggest acute diverticulitis. Study is without oral contra st limiting follow-up evaluation. Appendix: Not visualized. No dilated tubular structure or inflammatory changes. Urinary bladder: Normal. Genitourinary structures: Uterus appears normal. Adnexa are unremarkable. Osseous structures: No suspicious lytic or sclerotic lesions. Left hip appears intact. Femoral head is articulating with the acetabulum. Femoral neck greater and l jennifer trochanter and proximal diaphyseal femur appear intact. There is a essentially nondisplaced fracture of the left pubic ramus. Example image series 202 image 72. IMPRESSION: 1. Fracture of the left pubic ramus. [facility], , 12/24/2024 5:45 PM
[2024-12-24 19:11] VITALS: BP 144/56; PULSE 88
== END 2024-12-24 19:57 | disposition home or self-care (01) ==
LOC: EC 15:51
DX: S32.592A Other specified fracture of left pubis, initial encounter for closed fracture (principal); M25.552 Pain in left hip; J44.9 Chronic obstructive pulmonary disease, unspecified; Z87.891 Personal history of nicotine dependence; W01.0XXA Fall on same level from slipping, tripping and stumbling without subsequent striking against object, initial encounter
CPT/HCPCS: 73502; 72192; 99284; 96374; 96376; J2270

== ENCOUNTER 2025-02-02 15:53 | Observation (INO) | payer MEDICARE, BC ==
--- NOTE | 2025-02-02 16:28 | ED ---
General Adult HPI - General Chief complaint: GI Bleed Stated complaint: GI Bleed Time Seen by Provider: 02/02/25 16:00 Source: patient, EMS Mode of arrival: EMS Limitations: no limitations - History of Present Illness Initial comments: Patient is a 79-year-old female, past medical history of COPD chronically on 2 L oxygen nasal cannula, presenting with generalized weakness. Patient states that she fell and broke her pelvis on 12/24/2024 and since then she has been at home, overall bedbound however she has able to stand and transition to a commode and to get to her TV stand. Presents today for right sided abdominal fullness x 2 to 3 days and decreased appetite. Endorses associated generalized weakness. Endorses nausea but denies vomiting. Denies fevers or chills, chest pain, dizziness, lightheadedness, changes in vision, numbness, focal weakness or slurred speech. Earlier this morning had a bloody stool however patient is unsure exactly what it looks like because the nurse the visiting nurse saw it. Patient states she is chronic shortness of breath, not worse than normal. Denies dysuria, hematuria urinary frequency. States she did have a GI bleed earlier this year. She believes she may be on blood thinners but is unsure which one. Denies NSAID or alcohol use. - Related Data Home Medications Medication Instructions Recorded Confirmed Albuterol Inhaler [Ventolin Hfa 2 puff INHALATION RT-Q6H PRN 04/04/24 02/02/25 Inhaler] Fluticasone/Umeclidin/Vilanter 1 puff INHALATION RT-DAILY 04/04/24 02/02/25 [Doreen Chavirata 100-62.5-25] Atorvastatin [Lipitor] 40 mg PO HS 02/02/25 02/02/25 Famotidine [Pepcid] 20 mg PO HS 02/02/25 02/02/25 Ipratropium-Albuterol Nebulize 3 ml INHALATION RT-BID 02/02/25 02/02/25 [Duoneb 0.5 mg-3 mg/3 ml Soln] LORazepam [Ativan] 1 mg PO Q8H PRN 02/02/25 02/02/25 Metoprolol Succinate (ER) [Toprol 25 mg PO DAILY 02/02/25 02/02/25 XL] Multivitamins, Thera [Multivitamin 1 tab PO HS 02/02/25 02/02/25 (formulary)] Pantoprazole [Protonix] 40 mg PO AC-BID 02/02/25 02/02/25 Spironolactone [Aldactone] 12.5 mg PO DAILY 02/02/25 02/02/25 traMADol HCL 25 mg PO DAILY 02/02/25 02/02/25 Previous Rx's Medication Instructions Recorded Furosemide [Lasix] 20 mg PO DAILY #30 tab 04/08/24 Sucralfate [Carafate] 1 gm PO ACHS 30 Days #120 tab 04/14/24 Allergies Allergy/AdvReac Type Severity Reaction Status Date / Time No Known Allergies Allergy Verified 02/02/25 17:45 Review of Systems ROS Statement: Those systems with pertinent positive or pertinent negative responses have been documented in the HPI. ROS Other: All systems not noted in ROS Statement are negative. Past Medical History Past Medical History: Cancer, Heart Failure, COPD Additional Past Medical History / Comment(s): Skin cancer with removal, wears 3L NC at home related to COPD, current smoker, thymoma, CHF diagnosed last week on previous admission. History of Any Multi-Drug Resistant Organisms: None Reported Past Surgical History: No Surgical Hx Reported Additional Past Surgical History / Comment(s): Removal of skin cancer on nose about 1 year ago Past Anesthesia/Blood Transfusion Reactions: No Reported Reaction Past Psychological History: Anxiety, Panic Disorder Smoking Status: Former smoker Past Alcohol Use History: None Reported Past Drug Use History: None Reported - Past Family History Mother Family Medical History: COPD Father Additional Family Medical History / Comment(s): ETOH General Exam - General Exam Comments Initial Comments: PE: CONSTITUTIONAL: No apparent distress, ill-appearing, nontoxic SKIN: Warm, dry, no jaundice, hives or petechiae EYES: Pupils are equally round, extraocular movements intact without nystagmus, clear conjunctiva, non-icteric sclera HENT: Normocephalic, atraumatic, dry mucus membranes, oropharynx clear without exudates NECK: , Full range of motion, normal appearance PULMONARY: Clear to auscultation without wheezes, rhonchi, or rales, normal excursion, no accessory muscle use and no stridor CARDIOVASCULAR: Regular rate, rhythm, normal S1 and S2. No appreciated murmurs, rubs or gallops. Strong radial pulses with intact distal perfusion. No lower e xtremity edema GASTROINTESTINAL: Soft, active bowel sounds throughout, mild palpation of the bilateral upper quadrants, soft palpable mass right upper quadrant no rebound or guarding. No hepatosplenomegaly, rectal exam performed with Rylee, PCT at bedside, showed small amount maroon colored stool GENITOURINARY: MUSCULOSKELETAL: Extremities have no gross deformity, no edema, redness, or swelling. No calf swelling NEUROLOGIC:_a/o x 3, GCS 15, normal mentation and speech. Moves all extremities x 4 without motor or sensory deficit PSYCHIATRIC:_normal mood and affect, thought process is clear and linear Limitations: no limitations Course Vital Signs 02/02/25 02/02/25 02/02/25 15:54 18:08 20:00 Temperature 98.2 F Pulse Rate 89 93 92 Respiratory 22 20 20 Rate Blood Pressure 148/58 152/65 161/53 O2 Sat by Pulse 93 L 96 98 Oximetry 02/02/25 02/03/25 22:51 00:24 Temperature 98.1 F Pulse Rate 90 88 Respiratory 20 16 Rate Blood Pressure 125/76 132/51 O2 Sat by Pulse 97 98 Oximetry EKG Findings - EKG Comments: EKG Findings:: Ectopic atrial rhythm, rate 83 beats minute intervals when acceptable limits, normal axis, no significant ST elevations or depressions Medical Decision Making - Medical Decision Making Was pt. sent in by a medical professional or institution (Dr. PA, TEXTILE ENGINEER, urgent care, hospital, or [place] [facility] facility...) When possible be specific @ -No Did you speak to anyone other than the patient for history (EMS, parent, family, police, friend...)? What history was obtained from this source @Spoke with patient's daughter states patient is not on blood thinners Did you review nursing and triage notes (agree or disagree)? Why? @ -I reviewed nursing and triage notes agree with triage notes, with exception of fracture-01/14 Were old charts reviewed (outside hosp., previous admission, EMS record, old EKG, old radiological studies, urgent care reports/EKG's, [place] [facility] facility records)? Report findings @ -Medical records reviewed records reviewed, CT of the pelvis formed on 12/25/2023 showed a left pubic rami fracture Differential Diagnosis (chest pain, altered mental status, abdominal pain women, abdominal pain men, vaginal bleeding, weakness, fever, dyspnea, syncope, headache, dizziness, GI bleed, back pain, seizure, CVA, palpatations, mental health, musculoskeletal)? @Differential GI Bleed: Esophageal varices, aortoenteric fistula, [place]-Wallace, gastritis, peptic ulcer disease, diverticulosis, inflammatory bowel disease, hemorrhoids, fissure, colitis, malignancy, Meckel's diverticulum, this is not meant to be an all- inclusive list. EKG interpreted by me (3pts min.). @ -As above X-rays interpreted by me (1pt min.). @Reviewed chest x-ray seen evidence of consolidations or pneumothorax CT interpreted by me (1pt min.). @Personally reviewed CT scan I see no evidence of active hemorrhage, shows bowel wall thickening consistent with colitis agree with radiologist interpretation U/S interpreted by me (1pt. min.). @ -None done What testing was considered but not performed or refused? (CT, X-rays, U/S, labs)? Why? @ -None What meds were considered but not given or refused? Why? @ -None Did you discuss the management of the patient with other professionals (professionals i.e. , PA, TEXTILE ENGINEER, lab, RT, psych nurse, social services analyst, machine engraver, teacher, liaison officer, telephonic case manager)? Give summary @ -No Was smoking cessation discussed for >3mins.? @ -No Was critical care preformed (if so, how long)? @ -No Were there social determinants of health that impacted care today? How? (Homelessness, low income, unemployed, alcoholism, drug addiction, transportation, low edu. Level, literacy, decrease access to med. care, snf, rehab)? @ -No Was there de-escalation of care discussed even if they declined (Discuss DNR or withdrawal of care, Hospice)? @ -No What co-morbidities impacted this encounter? (DM, HTN, Smoking, COPD, CAD, Cancer, CVA, ARF, Chemo, Hep., AIDS, mental health diagnosis, sleep apnea, morbid obesity)? COPD, Was patient admitted / discharged? Hospital course, mention meds given and route, prescriptions, significant lab abnormalities, going to OR and other pertinent info. @ -Admission- Patient is a pleasant 79-year-old female past med history COPD on the 2 L oxygen nasal cannula recent pubic rami fracture presenting for generalized weakness, abdominal pain and bloody stool this morning. Vital signs overall stable on arrival. On my assessment patient is chronically ill- appearing, with slight dry mucous membranes, no acute distress. Rectal exam was formed with Car, PCT at bedside, showed maroon-colored stool on my finger without visible hemorrhoids. Discussed with patient plan for CT abdomen pelvis, labs. Will obtain chest x-ray, type and cross for administer Protonix and fluids. Lab significant for mild leukocytosis 11.19, hemoglobin 10.7 which is higher than previous, Is 46 suspect secondary to COPD, positive stool occult blood. Case discussed with Dr. Velasquez who kindly accepted patient for admission. CT scan resulted just after admission discussion, significant for colitis/diverticulitis. Rocephin and Flagyl were ordered. Updated pt and daughter to findings, and admission to which they were agreeable. Undiagnosed new problem with uncertain prognosis? @ -No Drug Therapy requiring intensive monitoring for toxicity (Heparin, Nitro, Insulin, Cardizem)? @ -No Were any procedures done? @ -No Diagnosis/symptom? @ -Lower GI bleed Acute, or Chronic, or Acute on Chronic? @ -Acute Uncomplicated (without systemic symptoms) or Complicated (systemic symptoms)? @Complicated Side effects of treatment? @ -No Exacerbation, Progression, or Severe Exacerbation? @ -No Poses a threat to life or bodily function? How? (Chest pain, USA, SD, pneumonia, PE, COPD, DKA, ARF, appy, cholecystitis, CVA, Diverticulitis, Homicidal, Suicidal, threat to staff... and all critical care pts) @ -Yes - Lab Data Result diagrams: 02/02/25 16:37 02/02/25 16:37 Lab Results 02/02/25 02/02/25 02/02/25 Range/Units 16:02 16:37 16:37 WBC 11.19 H (4.50-10.00) 10*3/uL RBC 3.62 L (4.10-5.20) 10*6/uL Hgb 10.7 L (12.0-15.0) g/dL Hct 34.4 L (37.2-46.3) % MCV 95.0 (80.0-97.0) fL MCH 29.6 (27.0-32.0) pg MCHC 31.1 L (32.0-37.0) g/dL Plt Count 344 (140-440) 10*3/uL MPV 9.8 (9.5-12.2) fL Immature Gran % (Auto) 0.5 % Neutrophils % 77.9 % Lymphocytes % 12.6 % Monocytes % 8.2 % Eosinophils % 0.4 % Basophils % 0.4 % Immature Gran # 0.06 H (0.00-0.04) 10*3/uL Neutrophils # 8.72 H (1.80-7.70) 10*3/uL Lymphocytes # 1.41 (0.90-5.00) 10*3/uL Monocytes # 0.92 (0.20-1.00) 10*3/uL Eosinophils # 0.04 (0.04-0.35) 10*3/uL Basophils # 0.04 (0.00-0.10) 10*3/uL PT (10.0-12.5) sec INR (<1.2) APTT (22.0-30.0) sec Sodium (137-145) mmol/L Potassium (3.5-5.1) mmol/L Chloride (98-107) mmol/L Carbon Dioxide (22-30) mmol/L Anion Gap mmol/L BUN (7-17) mg/dL Creatinine (0.52-1.04) mg/dL Est GFR (CKD-EPI)AfAm (>60 ml/min/1.73 sqM) Est GFR (CKD-EPI)NonAf (>60 ml/min/1.73 sqM) Glucose (74-99) mg/dL Plasma Lactic Acid Jeff (0.7-2.0) mmol/L Calcium (8.4-10.2) mg/dL Magnesium (1.6-2.3) mg/dL Total Bilirubin (0.2-1.3) mg/dL AST (14-36) U/L ALT (4-34) U/L Alkaline Phosphatase (38-126) U/L Creatine Kinase (30-135) U/L Troponin I (0.000-0.034) ng/mL Total Protein (6.3-8.2) g/dL Albumin (3.5-5.0) g/dL Lipase (23-300) U/L Urine Color Urine Appearance (Clear) Urine pH (5.0-8.0) Ur Specific [place] (1.001-1.035) Urine Protein (Negative) Urine Glucose (UA) (Negative) Urine Ketones (Negative) Urine Blood (Negative) Urine Nitrite (Negative) Urine Bilirubin (Negative) Urine Urobilinogen (<2.0) mg/dL Ur Leukocyte Esterase (Negative) Stool Occult Blood Positive H (Negative) Influenza Type A (PCR) (Not Detectd) Influenza Type B (PCR) (Not Detectd) RSV (PCR) (Not Detectd) SARS-CoV-2 (PCR) (Not Detectd) Blood Type A Positive Blood Type Recheck A Pos Bld Type Recheck Status No Antibody Screen NEGATIVE Spec Expiration Date 02/05/2025230102/02/25 02/02/25 02/02/25 Range/Units 16:37 16:37 16:37 WBC (4.50-10.00) 10*3/uL RBC (4.10-5.20) 10*6/uL Hgb (12.0-15.0) g/dL Hct (37.2-46.3) % MCV (80.0-97.0) fL MCH (27.0-32.0) pg MCHC (32.0-37.0) g/dL Plt Count (140-440) 10*3/uL MPV (9.5-12.2) fL Immature Gran % (Auto) % Neutrophils % % Lymphocytes % % Monocytes % % Eosinophils % % Basophils % % Immature Gran # (0.00-0.04) 10*3/uL Neutrophils # (1.80-7.70) 10*3/uL Lymphocytes # (0.90-5.00) 10*3/uL Monocytes # (0.20-1.00) 10*3/uL Eosinophils # (0.04-0.35) 10*3/uL Basophils # (0.00-0.10) 10*3/uL PT 9.9 L (10.0-12.5) sec INR 0.9 (<1.2) APTT 26.6 (22.0-30.0) sec Sodium 136 L (137-145) mmol/L Potassium 4.0 (3.5-5.1) mmol/L Chloride 86 L (98-107) mmol/L Carbon Dioxide 46 H* (22-30) mmol/L Anion Gap 4 mmol/L BUN 11 (7-17) mg/dL Creatinine 0.58 (0.52-1.04) mg/dL Est GFR (CKD-EPI)AfAm >90 (>60 ml/min/1.73 sqM) Est GFR (CKD-EPI)NonAf 89 (>60 ml/min/1.73 sqM) Glucose 105 H (74-99) mg/dL Plasma Lactic Acid Jeff 0.9 (0.7-2.0) mmol/L Calcium 9.2 (8.4-10.2) mg/dL Magnesium 2.0 (1.6-2.3) mg/dL Total Bilirubin 0.4 (0.2-1.3) mg/dL AST 26 (14-36) U/L ALT 8 (4-34) U/L Alkaline Phosphatase 127 H (38-126) U/L Creatine Kinase 24 L (30-135) U/L Troponin I (0.000-0.034) ng/mL Total Protein 6.4 (6.3-8.2) g/dL Albumin 3.8 (3.5-5.0) g/dL Lipase 119 (23-300) U/L Urine Color Urine Appearance (Clear) Urine pH (5.0-8.0) Ur Specific [place] (1.001-1.035) Urine Protein (Negative) Urine Glucose (UA) (Negative) Urine Ketones (Negative) Urine Blood (Negative) Urine Nitrite (Negative) Urine Bilirubin (Negative) Urine Urobilinogen (<2.0) mg/dL Ur Leukocyte Esterase (Negative) Stool Occult Blood (Negative) Influenza Type A (PCR) (Not Detectd) Influenza Type B (PCR) (Not Detectd) RSV (PCR) (Not Detectd) SARS-CoV-2 (PCR) (Not Detectd) Blood Type Blood Type Recheck Bld Type Recheck Status Antibody Screen Spec Expiration Date 02/02/25 02/02/25 02/02/25 Range/Units 16:37 16:52 19:50 WBC (4.50-10.00) 10*3/uL RBC (4.10-5.20) 10*6/uL Hgb (12.0-15.0) g/dL Hct (37.2-46.3) % MCV (80.0-97.0) fL MCH (27.0-32.0) pg MCHC (32.0-37.0) g/dL Plt Count (140-440) 10*3/uL MPV (9.5-12.2) fL Immature Gran % (Auto) % Neutrophils % % Lymphocytes % % Monocytes % % Eosinophils % % Basophils % % Immature Gran # (0.00-0.04) 10*3/uL Neutrophils # (1.80-7.70) 10*3/uL Lymphocytes # (0.90-5.00) 10*3/uL Monocytes # (0.20-1.00) 10*3/uL Eosinophils # (0.04-0.35) 10*3/uL Basophils # (0.00-0.10) 10*3/uL PT (10.0-12.5) sec INR (<1.2) APTT (22.0-30.0) sec Sodium (137-145) mmol/L Potassium (3.5-5.1) mmol/L Chloride (98-107) mmol/L Carbon Dioxide (22-30) mmol/L Anion Gap mmol/L BUN (7-17) mg/dL Creatinine (0.52-1.04) mg/dL Est GFR (CKD-EPI)AfAm (>60 ml/min/1.73 sqM) Est GFR (CKD-EPI)NonAf (>60 ml/min/1.73 sqM) Glucose (74-99) mg/dL Plasma Lactic Acid Jeff (0.7-2.0) mmol/L Calcium (8.4-10.2) mg/dL Magnesium (1.6-2.3) mg/dL Total Bilirubin (0.2-1.3) mg/dL AST (14-36) U/L ALT (4-34) U/L Alkaline Phosphatase (38-126) U/L Creatine Kinase (30-135) U/L Troponin I <0.012 (0.000-0.034) ng/mL Total Protein (6.3-8.2) g/dL Albumin (3.5-5.0) g/dL Lipase (23-300) U/L Urine Color Colorless Urine Appearance Clear (Clear) Urine pH 8.0 (5.0-8.0) Ur Specific [place] 1.019 (1.001-1.035) Urine Protein Negative (Negative) Urine Glucose (UA) Negative (Negative) Urine Ketones Negative (Negative) Urine Blood Negative (Negative) Urine Nitrite Negative (Negative) Urine Bilirubin Negative (Negative) Urine Urobilinogen <2.0 (<2.0) mg/dL Ur Leukocyte Esterase Negative (Negative) Stool Occult Blood (Negative) Influenza Type A (PCR) Not Detected (Not Detectd) Influenza Type B (PCR) Not Detected (Not Detectd) RSV (PCR) Not Detected (Not Detectd) SARS-CoV-2 (PCR) Not Detected (Not Detectd) Blood Type Blood Type Recheck Bld Type Recheck Status Antibody Screen Spec Expiration Date Disposition Clinical Impression: Lower GI bleed, Colitis, Diverticulitis Disposition: ADMITTED IP TO THIS [facility] Condition: Stable
[2025-02-02] MEDS: PANTOPRAZOLE 40 MG/10 ML VIAL IVP ONE (16:33)
[2025-02-02] MEDS: SODIUM CHLORIDE 0.9% 500 ML 500 ML IV STA (16:33)
[2025-02-02 16:46] LABS: Basophils # (A) 0.04 10*3/uL (0.00-0.10); Basophils % (A) 0.4 %; Eosinophils # (A) 0.04 10*3/uL (0.04-0.35); Eosinophils % (A) 0.4 %; HCT 34.4 % (37.2-46.3); HGB 10.7 g/dL (12.0-15.0); Lymphocytes # (A) 1.41 10*3/uL (0.90-5.00); Lymphocytes % (A) 12.6 %; MCH 29.6 pg (27.0-32.0); MCHC 31.1 g/dL (32.0-37.0); MCV 95.0 fL (80.0-97.0); Monocytes # (A) 0.92 10*3/uL (0.20-1.00); Monocytes % (A) 8.2 %; Neutrophils # (A) 8.72 10*3/uL (1.80-7.70); Neutrophils % (A) 77.9 %; Platelet Count 344 10*3/uL (140-440); RBC 3.62 10*6/uL (4.10-5.20); RDW 12.3 % (11.5-14.5); WBC 11.19 10*3/uL (4.50-10.00)
[2025-02-02 17:04] LABS: ALT 8 U/L (4-34); AST 26 U/L (14-36); African American GFR (CKD) >90 (>60 ml/min/1.73 sqM); Albumin 3.8 g/dL (3.5-5.0); Alkaline Phosphatase 127 U/L (38-126); Blood Urea Nitrogen 11 mg/dL (7-17); Calcium 9.2 mg/dL (8.4-10.2); Chloride 86 mmol/L (98-107); Creatine Kinase 24 U/L (30-135); Glucose 105 mg/dL (74-99); Lipase 119 U/L (23-300); Magnesium 2.0 mg/dL (1.6-2.3); Non-African American GFR(CKD) 89 (>60 ml/min/1.73 sqM); Potassium 4.0 mmol/L (3.5-5.1); Sodium 136 mmol/L (137-145); Total Protein 6.4 g/dL (6.3-8.2)
[2025-02-02 17:11] LABS: Anion Gap 4 mmol/L
[2025-02-02 17:17] LABS: Carbon Dioxide 46 mmol/L (22-30)
[2025-02-02 17:23] LABS: INR 0.9 (<1.2); Partial Thromboplastin Time 26.6 sec (22.0-30.0); Prothrombin Time 9.9 sec (10.0-12.5)
[2025-02-02 17:55] LABS: RSV Not Detected (Not Detectd)
--- NOTE | 2025-02-02 19:23 | XR ---
EXAMINATION TYPE: XR chest 2V DATE OF EXAM: 02/02/2025 7:03 PM COMPARISON: Chest radiographs from 04/10/2024. CLINICAL INDICATION: Female, 79 years old with history of generalized weakness; [facility] TECHNIQUE: XR chest 2V Frontal and lateral views of the chest. FINDINGS: Lungs/Pleura: Prominent interstitial lung markings are seen scattered throughout the lungs with primitivo ening of the diaphragm and increased lucency of the lung apices. No evidence of focal consolidation, pneumothorax or pleural effusion. Pulmonary vascularity: Unremarkable. Heart/mediastinum: Cardiomediastinal silhouette is unremarkable. Musculoskeletal: No acute osseous pathology. IMPRESSION: 1. No acute cardiopulmonary disease process. 2. COPD changes. [facility], , 02/02/2025 7:20 PM
[2025-02-02 19:58] LABS: Bilirubin,Urine Negative (Negative); Blood,Urine Negative (Negative); Color,Urine Colorless; Glucose,Urine (UA) Negative (Negative); Ketones,Urine Negative (Negative); Leukocyte Esterase,Urine Negative (Negative); Nitrite,Urine Negative (Negative); PH, Urine 8.0 (5.0-8.0); Protein,Urine Negative (Negative); Specific Gravity,Urine 1.019 (1.001-1.035); Urobilinogen,Urine <2.0 mg/dL (<2.0)
--- NOTE | 2025-02-02 20:15 | CT ---
EXAMINATION TYPE: CT angio abdomen pelvis DATE OF EXAM: 02/02/2025 7:55 PM COMPARISON: December 09, 2023. CLINICAL INDICATION: Female, 79 years old with history of GI Bleed; PHH, hx of pelvic fracture 12-25-24 , bright red blood in stool today, RUQ pain TECHNIQUE: CT angio abdomen pelvis Multiple thin slice sub-millimeter images were obtained before and after administration of contrast. 3-D reconstructed images and maximum intensity projection images were obtained on a separate works tation. CT angio abdomen pelvis CT Contrast: Contrast used:100 ml mL of Isovue 370 with IV Contrast, Oral contrast used: without Oral Contrast None CT DLP: 812.3 mGycm, Automated exposure control for dose reduction was used. FINDINGS: CTA Abdomen and pelvis: The abdominal aorta does not demonstrate aneurysmal dilatation. Atherosclero tic plaque is identified within the abdominal aorta. The origins of the superior mesenteric artery, renal arteries, inferior mesenteric artery, and celiac axis are patent. The iliac vessels are normal in morphology LOWER CHEST: No evidence of focal consolidation, pneumothorax or pleural effusion. Moderate aortic valve and coronary artery calcifications. LIVER: Unremarkable GALLBLADDER AND BILE DUCTS: Unremarkable. PANCREAS: Unremarkable. SPLEEN: Unremarkable. ADRENAL GLANDS: Unremarkable. KIDNEYS AND URETERS: No evidence of hydronephrosis or obstructing renal calculus. The ureters are unr emarkable. Nonobstructing bilateral renal calculi measuring up to 10 mm on the left and 2 mm on the right. Extrarenal pelves are noted bilaterally. PELVIS BLADDER: Unremarkable REPRODUCTIVE: Unremarkable. ABDOMEN & PELVIS STOMACH AND BOWEL: No evidence of bowel obstruction. Scattered colonic diverticula. At least one of t he diverticula on the pelvis has Fat stranding changes around it. Appendix is normal. No organizing f luid collection or free air. PERITONEUM: No evidence of pneumoperitoneum or free fluid. VASCULATURE: Evaluation of the gastrointestinal tract demonstrates no evidence of high density hemorr german on arterial phase or pooling of blood on delayed phases. MUSCULOSKELETAL: Left inferior and superior pubic ramus fractures with incomplete osseous fusion. Lef t sacrum fracture with incomplete fusion. Moderate to severe degeneration changes throughout the spin e. Moderate degeneration changes at the joint space and osteophyte formation. LYMPH NODES: No gross evidence for lymphadenopathy. SOFT TISSUE/ABDOMINAL WALL: Unremarkable IMPRESSION: 1. No evidence for gastrointestinal hemorrhage. 2. Colitis/diverticulitis of the sigmoid colon 3. Subacute fractures of the left superior and inferior pubic ramus and left sacrum. 4. Moderate to severe emphysema changes. 5. Moderate aortic valve calcifications. 6. Moderate coronary artery calcifications. 7. Colonic diverticulosis. 8. Nonobstructing bilateral renal calculi. [facility], , 02/02/2025 8:12 PM
[2025-02-02] MEDS ORDERED: ALBUTEROL NEBULIZED 2.5 MG/3 ML INHALATION PRN (20:58)
[2025-02-02] MEDS ORDERED: ACETAMINOPHEN TAB 325 MG TAB PO PRN (20:59)
[2025-02-02] MEDS ORDERED: ONDANSETRON 4 MG/2 ML VIAL IVP PRN (20:59)
[2025-02-02] MEDS ORDERED: NALOXONE 0.4 MG/ML 1 ML VIAL IV PRN (20:59)
[2025-02-02] MEDS: LORazepam 1 MG/0.5 ML VIAL IV STA (21:13)
[2025-02-02] MEDS: ATORVASTATIN 40 MG TAB PO SCH (22:53)
[2025-02-02] MEDS: SUCRALFATE 1 GM TAB PO SCH (22:53)
[2025-02-02] MEDS: MULTIVITAMINS, THERA 1 EACH TAB PO SCH (22:53)
[2025-02-02] MEDS: cefTRIAXone IN SWFI 1,000 MG/10 ML SYRINGE IVP STA (22:54)
[2025-02-02] MEDS: FAMOTIDINE 20 MG TAB PO SCH (22:54)
[2025-02-02] MEDS: metroNIDAZOLE-NS PMX 500 MG in SALINE 1 100ML.BAG IVPB STA (23:33)
[2025-02-02] MEDS: LORazepam 1 MG TAB PO PRN (23:34)
[2025-02-03 03:28] VITALS: TEMP 98
--- NOTE | 2025-02-03 04:42 | HP ---
HISTORY AND PHYSICAL HISTORY OF PRESENT ILLNESS: A 79-year-old white female came to the hospital for GI bleeding. She had a CAT scan of the abdomen and pelvis which showed nonobstructing kidney stones. Otherwise, CAT scan of the abdomen shows [id number] emphysema, moderate aortic valve calcifications, coronary artery calcifications, colitis and diverticulosis of sigmoid colon, and subacute fractures of the inferior pubic ramus. The patient is admitted for GI bleed with GI consult. HOME MEDICINES: Reviewed. REVIEW OF SYSTEMS: 14-point review of systems with weakness, fatigue, and dark black stools, otherwise negative. ALLERGIES: Reviewed. PAST MEDICAL HISTORY: Cancer, heart failure, COPD, skin cancer, thymoma, current smoker, CHF, anxiety, panic disorder. SOCIAL HISTORY: Former smoker. Mother with COPD. Father with alcohol. PHYSICAL EXAMINATION: VITAL SIGNS: Temperature 92, pulse 80s-90s, respiratory rate 20-22, blood pressure is 140s to 160s over 50s, O2 of 93-98, she wears 2 L. CARDIOVASCULAR: S1, S2. LUNGS: Decreased breath sounds x4. GI: Soft, nontender. HEMATOLOGY: Negative Homans. PSYCH: Fair mood and affect. NEUROLOGIC: Cranial nerves intact. DIAGNOSTIC DATA: EKG shows ectopic atrial rhythm. No CT changes. ASSESSMENT: 1. Gastrointestinal bleed. 2. Acute on chronic anemia. 3. Chronic obstructive pulmonary disease. PLAN: Prognosis guarded. Consult GI and possibly Dr. Ken. Treat with IV Flagyl for colitis and diverticulitis, possibly Levaquin. Clear liquids, n.p.o. Home medications have been reordered. MMODL / IJN: [id number] /
[2025-02-03] MEDS: FUROSEMIDE 20 MG TAB PO SCH (07:57)
[2025-02-03] MEDS: SPIRONOLACTONE 25 MG TAB PO SCH (07:58)
[2025-02-03] MEDS: METOPROLOL SUCCINATE (ER) 25 MG TAB.ER.24H PO SCH (07:58)
[2025-02-03] MEDS: traMADol 50 MG TAB PO SCH (07:59)
[2025-02-03] MEDS: PANTOPRAZOLE 40 MG TABLET PO SCH (08:00)
[2025-02-03] MEDS: SYMBICORT 160-4.5 MCG INHALER INHALATION SCH (08:47)
[2025-02-03] MEDS: IPRATROPIUM-ALBUTEROL 3 ML NEB INHALATION SCH (08:47)
[2025-02-03 09:02] LABS: HCT 32.8 % (37.2-46.3); HGB 10.0 g/dL (12.0-15.0); MCH 29.3 pg (27.0-32.0); MCHC 30.5 g/dL (32.0-37.0); MCV 96.2 fL (80.0-97.0); Platelet Count 311 10*3/uL (140-440); RBC 3.41 10*6/uL (4.10-5.20); RDW 12.8 % (11.5-14.5); WBC 7.39 10*3/uL (4.50-10.00)
[2025-02-03] MEDS: metroNIDAZOLE-NS PMX 500 MG in SALINE 1 100ML.BAG IVPB SCH (09:24)
--- NOTE | 2025-02-03 11:12 | P.CONS ---
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 Patient also reporting that there was bright red blood mixed in her stool and so her home care nurse was concerned and she came in for further evaluation. Patient and daughter states that it was only 1 episode and it was mixed in with her stool she did not have just ricky bleeding per the rectum. She denies being on any anticoagulation or NSAID use. She had a CT angiogram abdomen and pelvis as part of her workup in the emergency department with reported findings of colitis/diverticulitis of the sigmoid colon. Gastroenterology was consulted for colitis, GI bleed. 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 Small hiatal hernia. Patient has not had any further rectal bleeding or bowel movement. States that she just has some mild disc comfort in her abdomen more like a fullness. No nausea or vomiting. She has been afebrile. Denies any previous history of diverticulitis. Admitting labs WBC 11.1 hemoglobin 10.7 hematocrit 34 platelet count 344,000 INR 0.9 sodium 136 potassium 4.0 BUN 11 creatinine 0.5 total bilirubin 0.4 AST 26 ALT 18 alkaline phosphatase 127 today's repeat CBC WBC 7.3 hemoglobin 10.0 platelet count 311,000 Review of Systems REVIEW OF SYSTEMS: CARDIOPULMONARY: No chest pain. Chronic shortness of breath secondary to COPD oxygen dependent at home Gastrointestinal: Abdominal pain, mostly fullness feeling right lower abdomen. No nausea or vomiting. No hematemesis, coffee-ground emesis. Bright red blood mixed in stool x 1. GENITOURINARY: No dysuria or hematuria. MUSCULOSKELETAL: Nonweightbearing secondary to pelvis fracture. SKIN: No rashes. No jaundice. ENDOCRINE: No chills, fevers. No excessive weight gain or loss. No polydipsia or polyuria. PSYCHIATRIC: Unremarkable. NEUROLOGY: No change in mental status. Denies dizziness, headache. ENT: Vision unremarkable. CONSTITUTIONAL: No recent weight loss. Decreased appetite. No fever, chills, night sweats. Past Medical History Past Medical History: Cancer, Heart Failure, COPD Additional Past Medical History / Comment(s): Skin cancer with removal, wears 3L NC at home related to COPD, current smoker, thymoma, CHF diagnosed last week on previous admission. History of Any Multi-Drug Resistant Organisms: None Reported Past Surgical History: No Surgical Hx Reported Additional Past Surgical History / Comment(s): Removal of skin cancer on nose about 1 year ago Past Anesthesia/Blood Transfusion Reactions: No Reported Reaction Past Psychological History: Anxiety, Panic Disorder Smoking Status: Former smoker Past Alcohol Use History: None Reported Past Drug Use History: None Reported - Past Family History Mother Family Medical History: COPD Father Additional Family Medical History / Comment(s): ETOH Medications and Allergies Home Medications Medication Instructions Recorded Confirmed Type Albuterol Inhaler [Ventolin Hfa 2 puff INHALATION RT-Q6H PRN 04/04/24 02/02/25 History Inhaler] Fluticasone/Umeclidin/Vilanter 1 puff INHALATION RT-DAILY 04/04/24 02/02/25 History [Trelegy Ellipta 100-62.5-25] Furosemide [Lasix] 20 mg PO DAILY #30 tab 04/08/24 02/02/25 Rx Sucralfate [Carafate] 1 gm PO ACHS 30 Days #120 tab 04/14/24 02/02/25 Rx Atorvastatin [Lipitor] 40 mg PO HS 02/02/25 02/02/25 History Famotidine [Pepcid] 20 mg PO HS 02/02/25 02/02/25 History Ipratropium-Albuterol Nebulize 3 ml INHALATION RT-BID 02/02/25 02/02/25 History [Duoneb 0.5 mg-3 mg/3 ml Soln] LORazepam [Ativan] 1 mg PO Q8H PRN 02/02/25 02/02/25 History Metoprolol Succinate (ER) [Toprol 25 mg PO DAILY 02/02/25 02/02/25 History XL] Multivitamins, Thera [Multivitamin 1 tab PO HS 02/02/25 02/02/25 History (formulary)] Pantoprazole [Protonix] 40 mg PO AC-BID 02/02/25 02/02/25 History Spironolactone [Aldactone] 12.5 mg PO DAILY 02/02/25 02/02/25 History traMADol HCL 25 mg PO DAILY 02/02/25 02/02/25 History Levofloxacin [Levaquin] 500 mg PO DAILY 10 Days #10 tab 02/03/25 Rx metroNIDAZOLE [Flagyl] 500 mg PO TID 10 Days #30 tab 02/03/25 Rx Allergies Allergy/AdvReac Type Severity Reaction Status Date / Time No Known Allergies Allergy Verified 02/02/25 17:45 Physical Exam Vitals: Vital Signs Temp Pulse Resp BP Pulse Ox 02/03/25 07:44 98 16 150/72 97 02/03/25 05:34 87 16 120/63 96 02/03/25 03:27 98 F 92 16 141/60 97 02/03/25 00:24 98.1 F 88 16 132/51 98 02/02/25 22:51 90 20 125/76 97 02/02/25 20:00 92 20 161/53 98 02/02/25 18:08 93 20 152/65 96 02/02/25 15:54 98.2 F 89 22 148/58 93 L Intake and Output 02/02/25 02/03/25 02/03/25 22:59 06:59 14:59 Other: Weight 45.359 kg General appearance: The patient is alert, oriented, appears in no acute distress. HET: Head is normocephalic and atraumatic. Conjunctiva pink. Sclera anicteric. Neck: Supple without lymphadenopathy. Trachea midline. Heart: Regular. Lungs: Equal expansion, normal respiratory effort. Abdomen: Soft, right lower quadrant tenderness, nondistended. Skin: No rashes. No jaundice. Extremities: Normal skin color and turgor. No pedal edema. Neurological: No focal deficits. Alert and oriented x3. Results CBC & Chem 7: 02/03/25 08:42 02/02/25 16:37 Labs: Abnormal Lab Results - Last 24 Hours (Table) 02/02/25 02/02/25 02/02/25 Range/Units 16:37 16:37 16:37 WBC 11.19 H (4.50-10.00) 10*3/uL RBC 3.62 L (4.10-5.20) 10*6/uL Hgb 10.7 L (12.0-15.0) g/dL Hct 34.4 L (37.2-46.3) % MCHC 31.1 L (32.0-37.0) g/dL Immature Gran # 0.06 H (0.00-0.04) 10*3/uL Neutrophils # 8.72 H (1.80-7.70) 10*3/uL PT 9.9 L (10.0-12.5) sec Sodium (137-145) mmol/L Chloride (98-107) mmol/L Carbon Dioxide (22-30) mmol/L Glucose (74-99) mg/dL Alkaline Phosphatase (38-126) U/L Creatine Kinase (30-135) U/L Stool Occult Blood Positive H (Negative) 02/02/25 Range/Units 16:37 WBC (4.50-10.00) 10*3/uL RBC (4.10-5.20) 10*6/uL Hgb (12.0-15.0) g/dL Hct (37.2-46.3) % MCHC (32.0-37.0) g/dL Immature Gran # (0.00-0.04) 10*3/uL Neutrophils # (1.80-7.70) 10*3/uL PT (10.0-12.5) sec Sodium 136 L (137-145) mmol/L Chloride 86 L (98-107) mmol/L Carbon Dioxide 46 H* (22-30) mmol/L Glucose 105 H (74-99) mg/dL Alkaline Phosphatase 127 H (38-126) U/L Creatine Kinase 24 L (30-135) U/L Stool Occult Blood (Negative) Comments: CT angiogram abdomen and pelvis reports no evidence of gastrointestinal hemorrhage. Colitis/diverticulitis of the sigmoid colon. Subacute fractures of the left superior inferior pubic ramus and left sacrum. Moderate to severe emphysema changes. Moderate aortic valve calcifications. Moderate coronary artery calcifications. Colonic diverticulosis. Nonobstructing bilateral renal calculi. Assessment and Plan (1) Diverticulitis Narrative/Plan: 79-year-old female with abdominal discomfort and fullness and decreased appetite with 1 episode of blood mixed in her stool has CT evidence of diverticulitis as well is evidence of leukocytosis. No further episodes of bleeding at this time. Will treat with antibiotics and symptomatic care. No plans for colon oscopy at this time. Current Visit: Yes Status: Acute Code(s): K57.92 - DVTRCLI OF INTEST, PART UNSP, W/O PERF OR ABSCESS W/O BLEED SNOMED Code(s): 143389567 (2) Abdominal pain Current Visit: Yes Status: Acute Code(s): R10.9 - UNSPECIFIED ABDOMINAL PAIN SNOMED Code(s): 14623376 (3) COPD (chronic obstructive pulmonary disease) Current Visit: No Status: Acute Code(s): J44.9 - CHRONIC OBSTRUCTIVE PULMONARY DISEASE, UNSPECIFIED SNOMED Code(s): 31673079 (4) Lower GI bleed Narrative/Plan: Bright red blood mixed in stool x 1 now resolved Current Visit: Yes Status: Acute Code(s): K92.2 - GASTROINTESTINAL HEMORRHAGE, UNSPECIFIED SNOMED Code(s): 64347124 Plan: 1. Continue symptomatic and supportive care 2. Clear liquid diet then advance as tolerated 3. Patient started on IV Levaquin and Flagyl, can discharge on oral Levaquin and Flagyl 4. Continue home meds with Protonix and Carafate 5. No plans at this time for colonoscopy. Patient and family have decided to go with hospice care and they are currently at the bedside. Patient and family are requesting patient be discharged home. 6. Patient is cleared from gastroenterology for discharge. Prescription sent for antibiotics. Thank you for this consultation, we will sign off at this time. Dr. Sunni Hairston I agree with the dictator's note, documented as a scribe by Morena Montalvo.
[2025-02-03] MEDS: LEVOFLOXACIN 500MG-D5W PMX 500 MG in DEXTROSE/WATER 1 100ML.BAG IVPB SCH (11:47)
[2025-02-03 16:45] VITALS: BP 125/55; PULSE 87; RESP 16
[2025-02-03] MEDS ORDERED: metroNIDAZOLE 500 MG TAB PO SCH (22:00)
[2025-02-04] MEDS ORDERED: LEVOFLOXACIN 500 MG TAB PO SCH (12:00)
== END 2025-02-03 17:03 | disposition home or self-care (01) ==
LOC: EC 15:53 → 3SCARD 21:02
PROVIDERS: ADMIT Family Medicine; ATTEND Family Medicine
DX: K57.32 Diverticulitis of large intestine without perforation or abscess without bleeding (principal); K52.9 Noninfective gastroenteritis and colitis, unspecified; I50.9 Heart failure, unspecified; F41.0 Panic disorder [episodic paroxysmal anxiety]; J44.9 Chronic obstructive pulmonary disease, unspecified; D64.9 Anemia, unspecified; Z11.52 Encounter for screening for COVID-19; Z85.828 Personal history of other malignant neoplasm of skin; Z87.891 Personal history of nicotine dependence; Z99.81 Dependence on supplemental oxygen; Z79.51 Long term (current) use of inhaled steroids; Z79.899 Other long term (current) drug therapy
CPT/HCPCS: 96365; 96366; 96367; 96375 ×2; 99285; 36415; 94640 ×2; 86900; 86901; 80053; 82550; 83605; 83690; 83735; 84484; 85025; 85027; 85610; 85730; 86850; 82272; 81003; 87040; 87636; 71046; 74174; G0378 ×2; J1956; J0696; Q9967; J1836 ×2; J2470